=== PATIENT | female | born 1930 | race Caucasian/White ===

== ENCOUNTER 2016-08-27 14:45 | Observation (INO) | payer MEDICARE, MEDICAID ==
[2016-08-27] MEDS ORDERED: ASPIRIN 81 MG TABLET, CHEWABLE PO ONE (14:51)
[2016-08-27 15:28] LABS: ABSOLUTE BASOPHILS # (AUTO) 0.1 10^3/uL (0.0-0.2); ABSOLUTE EOSINOPHILS # (AUTO) 0.3 10^3/uL (0.0-0.6); ABSOLUTE LYMPHOCYTES (AUTO) 2.4 10^3/uL (0.5-4.7); ABSOLUTE MONOCYTES (AUTO) 0.6 10^3/uL (0.1-1.4); ABSOLUTE NEUT (AUTO) 4.5 10^3/uL (1.7-8.2); BASOPHILS % (AUTO) 1.3 % (0-2); EOSINOPHILS % (AUTO) 3.2 % (0-6); HEMATOCRIT 37.8 % (36.0-47.0); HEMOGLOBIN 12.9 g/dL (12.0-15.5); HGB HCT DIFFERENCE 0.9; LYMPHOCYTES % (AUTO) 30.3 % (13-45); MEAN CORPUSCULAR HEMOGLOBIN 34.8 pg (27.0-33.4); MEAN CORPUSCULAR HGB CONC 34.2 g/dL (32.0-36.0); MEAN CORPUSCULAR VOLUME 102 fl (80-97); MONOCYTES % (AUTO) 7.9 % (3-13); RED BLOOD COUNT 3.71 10^6/uL (3.72-5.28); RED CELL DISTRIBUTION WIDTH 15.2 % (11.5-14.0); SEGMENTED NEUTROPHILS % (AUTO) 57.3 % (42-78); WHITE BLOOD COUNT 7.8 10^3/uL (4.0-10.5)
--- NOTE | 2016-08-27 15:37 | ER Document Report ---
ED Cardiac - General Chief Complaint: Chest Pain Stated Complaint: CHEST PAIN Information source: Patient Notes: This is an 85-year-old female with a previous cardiac history who presents via EMS for evaluation of chest pain. She states that at about 1330 today, while she was watching TV, she experienced sudden sharp stabbing pain in her epigastric and lower chest area at the midline. There is no radiation to the back. She did experience some shortness of breath during the episode but no diaphoresis. She had some nausea but no vomiting. Family states that she looked pale during the episode. She took one of her sublingual nitroglycerin at onset of pain and this did not provide any relief, so she took a second nitroglycerin prior to EMS arrival. She states that once EMS arrived that she was feeling much better, and currently she has no chest pain. She states that the last time she took nitroglycerin was about a week ago during a burping episode but that today's pain episode reminded her of her prior [place] about 15 years ago. TRAVEL OUTSIDE OF THE [place] IN LAST 30 DAYS: No - Related Data Allergies/Adverse Reactions: Penicillins Allergy (Verified 03/01/14 22:51) propoxyphene napsylate [From Darvocet-N 100] Allergy (Verified 03/01/14 22:51) Sulfa (Sulfonamide Antibiotics) Allergy (Verified 03/01/14 22:51) Home Medications: Current Home Medications Cetirizine HCl [Zyrtec 10 mg Tablet] 10 mg PO DAILY 08/27/16 [History] Clopidogrel Bisulfate [Plavix 75 mg Tablet] 75 mg PO DAILY 08/27/16 [History] Dabigatran Etexilate Mesylate [Pradaxa 75 mg Capsule] 75 mg PO BID 08/27/16 [ History] Furosemide [Lasix 40 mg Tablet] 40 mg PO DAILY 08/27/16 [History] Isosorbide Mononitrate [Imdur 30 mg Tablet.er] 30 mg PO DAILY 08/27/16 [History] Meclizine HCl [Antivert 25 mg Tablet] 25 mg PO DAILYP PRN 08/27/16 [History] Metoprolol Succinate [Toprol Xl 50 mg Tab.sr] 50 mg PO QHS 08/27/16 [History] Nitroglycerin [Nitrostat 0.4 mg (1/150 Gr) Tabs 25/Bottle] 1 tab SL ASDIR PRN [History] Ondansetron HCl [Zofran 4 mg Tablet] 4 mg PO Q8HP PRN 08/27/16 [History] Oxycodone HCl [Oxy-Ir 5 mg Tablet] 5 mg PO Q12HP PRN 08/27/16 [History] Pravastatin Sodium [Pravachol] 40 mg PO QHS 08/27/16 [History] Tramadol HCl [Ultram 50 mg Tablet] 50 mg PO TIDP PRN 08/27/16 [History] Valsartan [Diovan 80 mg Tablet] 80 mg PO QHS 08/27/16 [History] Past Medical History - General Information source: Patient - Social History Smoking Status: Former Smoker - quit 45 years ago Frequency of alcohol use: None Drug Abuse: None Lives with: Family Family History: Reviewed & Not Pertinent - Past Medical History Cardiac Medical History: Reports: Hx Congestive Heart Failure, Hx Heart Attack, Hx Hypercholesterolemia, Hx Hypertension Pulmonary Medical History: Denies: Hx Asthma Neurological Medical History: Denies: Hx Cerebrovascular Accident, Hx Seizures GI Medical History: Denies: Hx Hepatitis, Hx Hiatal Hernia, Hx Ulcer Musculoskeltal Medical History: Reports Hx Arthritis Psychiatric Medical History: Denies: Hx Depression Infectious Medical History: Denies: Hx Hepatitis Past Surgical History: Reports: Hx Cardiac Catheterization - stents, Hx Cardiac Surgery - open heart, Hx Cholecystectomy, Hx Coronary Stent, Hx Hysterectomy, Hx Open Heart Surgery - 1998. Denies: Hx Mastectomy, Hx Pacemaker - Immunizations Hx Diphtheria, Pertussis, Tetanus Vaccination: Yes Review of Systems - Review of Systems Notes: REVIEW OF SYSTEMS: CONSTITUTIONAL : Denies fever, chills, or sweats. Denies recent illness. EENT: Denies eye, ear, throat, or mouth pain or symptoms. Denies nasal or sinus congestion. CARDIOVASCULAR: as per HPI RESPIRATORY: Denies cough, cold, or chest congestion, difficulty breathing, or wheezing. GASTROINTESTINAL: Denies nausea, vomiting, or diarrhea. Denies constipation. GENITOURINARY: Denies difficulty urinating, painful urination, burning, frequency, or blood in urine. MUSCULOSKELETAL: Denies neck or back pain or joint pain or swelling. SKIN: Denies rash or skin lesions. HEMATOLOGIC : Denies easy bruising or bleeding. LYMPHATIC: No complaints NEUROLOGICAL: Denies altered mental status or loss of consciousness. Denies headache. PSYCHIATRIC: Denies anxiety or stress or depression. ALL OTHER SYSTEMS REVIEWED AND NEGATIVE. Physical Exam - Vital signs Vitals: Pulse Ox 98 08/27/16 14:57 - Notes Notes: PHYSICAL EXAMINATION: GENERAL: Well-appearing elderly female, pleasant and conversant, well-nourished and in no acute distress. HEAD: Atraumatic, normocephalic. EYES: Pupils equal round and reactive to light, extraocular movements intact, sclera anicteric, conjunctiva are normal. ENT: oropharynx clear without exudates. Moist mucous membranes. NECK: Normal range of motion, supple without lymphadenopathy LUNGS: Faint bibasilar crackles bilaterally, good air movement throughout, no wheezes or rhonchi HEART: Regular rate and rhythm without murmurs CHEST: no deformity. No chest wall TTP ABDOMEN: Soft, nontender, normoactive bowel sounds. No guarding, no rebound. No masses appreciated. EXTREMITIES: Normal range of motion, no pitting or edema. Distal pulses intact. NEUROLOGICAL: Cranial nerves grossly intact. Normal speech. Normal sensory and motor exams. PSYCH: Normal mood, normal affect. SKIN: Warm, Dry, normal turgor, no rashes or lesions noted. Course - Re-evaluation Re-evalutation: 08/27/16 17:28 Patient states that she still feels well and has had no chest pain since being in the emergency department today. We reviewed her lab results and chest x-ray results and discussed my concern about her chest pain being reminiscent of her prior [place]. I have discussed with Dr. Shultz and she will be admitted for chest pain. Questions from patient and family answered and they are all in agreement with plan. - Vital Signs Vital signs: Temp Pulse Resp BP Pulse Ox 79 18 134/81 H 98 08/27/16 20:08 08/27/16 19:00 08/27/16 18:01 08/27/16 19:00 - Laboratory Result Diagrams: 08/27/16 15:15 08/27/16 15:15 Laboratory results interpreted by me: 08/27/16 08/27/16 15:15 15:15 RBC 3.71 L MCV 102 H MCH 34.8 H RDW 15.2 H BUN 26 H Est GFR ( Amer) 58 L Est GFR (Non-Af Amer) 48 L Creatine Kinase 24 L - EKG Interpretation by Me Additional EKG results interpreted by me: 08/27/16 17:20 EKG at 1451 demonstrates a paced rhythm with a rate of 77 with no acute abnormalities Discharge - Discharge Clinical Impression: Chest pain in adult, History of [place] (myocardial infarction) Condition: Good Disposition: ADMITTED OBSERVATION Admitting Provider: [facility] Unit Admitted: [facility]
[2016-08-27 15:49] LABS: ALANINE AMINOTRANSFERASE 21 U/L (9-52); ALBUMIN 4.2 g/dL (3.5-5.0); ALKALINE PHOSPHATASE 57 U/L (38-126); ANION GAP 10 (5-19); ASPARTATE AMINO TRANSFERASE 20 U/L (14-36); BILIRUBIN,TOTAL 0.9 mg/dL (0.2-1.3); BLOOD UREA NITROGEN 26 mg/dL (7-20); CARBON DIOXIDE 29 mmol/L (22-30); CHLORIDE 100 mmol/L (98-107); CREATINE KINASE 24 U/L (30-135); CREATININE RESULT 1.09 mg/dL (0.52-1.25); GLUCOSE 86 mg/dL (75-110); POTASSIUM 4.6 mmol/L (3.6-5.0); SODIUM 139.4 mmol/L (137-145); TOTAL PROTEIN 7.1 g/dL (6.3-8.2)
[2016-08-27 16:00] LABS: CREATINE KINASE MB < 0.22 ng/mL (<4.55); TROPONIN I < 0.012 ng/mL
[2016-08-27] MEDS ORDERED: MECLIZINE HCL 25 MG TABLET PO PRN (21:17)
[2016-08-27] MEDS ORDERED: TRAMADOL HCL 50 MG TABLET PO PRN (21:17)
[2016-08-27] MEDS ORDERED: (PENDING PHARMACY ID) (Ondansetron Hcl [Zofran 4 Mg Tablet] 4 MG) PO PRN (21:17)
[2016-08-27] MEDS ORDERED: OXYCODONE HCL IR 5 MG TABLET PO PRN (21:17)
[2016-08-27] MEDS ORDERED: NITROGLYCERIN 0.4 MG/TAB 25 TAB/BOTTLE SL PRN (21:17)
[2016-08-27] MEDS ORDERED: ONDANSETRON HCL 8 MG TABLET PO PRN (21:29)
[2016-08-27] MEDS ORDERED: ATORVASTATIN CALCIUM 10 MG TABLET PO SCH (22:00)
[2016-08-27] MEDS ORDERED: (PENDING PHARMACY ID) (Pravastatin Sodium [Pravachol] 40 MG) PO SCH (22:00)
[2016-08-27] MEDS ORDERED: VALSARTAN 80 MG TABLET PO SCH (22:00)
[2016-08-27] MEDS ORDERED: METOPROLOL SUCCINATE 50 MG TAB.SR.24H PO SCH (22:00)
--- NOTE | 2016-08-27 22:17 | EKG REPORT ---
SEVERITY:- ABNORMAL ECG - AFIB/FLUT AND V-PACED COMPLEXES : Confirmed by: Jose Raul Lorenzo 27-Aug-2016 22:17:20
[2016-08-28 02:54] LABS: CREATINE KINASE MB < 0.22 ng/mL (<4.55); TROPONIN I < 0.012 ng/mL
--- NOTE | 2016-08-28 08:16 | PDOC DISCHARGE SUMMARY ---
General - Admit/Disc Date/PCP Admission Date/Primary Care Provider: 08/27/16 21:14 PATRICIA MAJANO, Discharge Date: 08/28/16 - Discharge Diagnosis (1) Chest pain in adult Is this a current diagnosis for this admission?: YesSummary: Chest pain and NH ruled out most probably noncardiac. (2) Gastroesophageal reflux disease Is this a current diagnosis for this admission?: YesSummary: Possible cause of retrosternal chest pain. The patient states she had a lot of heartburn and burping last week (3) History of [place] (myocardial infarction) Is this a current diagnosis for this admission?: Yes (4) Hypertensive disorder Is this a current diagnosis for this admission?: Yes - Additional Information Resuscitation Status: Full Code Discharge Diet: As Tolerated Discharge Activity: Activity As Tolerated Home Medications: Cetirizine HCl [Zyrtec 10 mg Tablet] 10 mg PO DAILY 08/27/16 Clopidogrel Bisulfate [Plavix 75 mg Tablet] 75 mg PO DAILY 08/27/16 Dabigatran Etexilate Mesylate [Pradaxa 75 mg Capsule] 75 mg PO BID 08/27/16 Furosemide [Lasix 40 mg Tablet] 40 mg PO DAILY 08/27/16 Isosorbide Mononitrate [Imdur 30 mg Tablet.er] 30 mg PO DAILY 08/27/16 Meclizine HCl [Antivert 25 mg Tablet] 25 mg PO DAILYP PRN 08/27/16 Metoprolol Succinate [Toprol Xl 50 mg Tab.sr] 50 mg PO QHS 08/27/16 Nitroglycerin [Nitrostat 0.4 mg (1/150 Gr) Tabs 25/Bottle] 1 tab SL ASDIR PRN Ondansetron HCl [Zofran 4 mg Tablet] 4 mg PO Q8HP PRN 08/27/16 Oxycodone HCl [Oxy-Ir 5 mg Tablet] 5 mg PO Q12HP PRN 08/27/16 Pravastatin Sodium [Pravachol] 40 mg PO QHS 08/27/16 Tramadol HCl [Ultram 50 mg Tablet] 50 mg PO TIDP PRN 08/27/16 Valsartan [Diovan 80 mg Tablet] 80 mg PO QHS 08/27/16 History of Present Illness History of Present Illness: SUNIL VALDES is a 85 year old female Hospital Course Hospital Course: The patient was admitted for observation with chest pain. Her chest pain has resolved by the time she arrived in the emergency room. Because of her prior history of coronary artery disease the patient was admitted for observation. She had 3 sets of negative enzymes. Her EKG showed paced rhythm. She did not have any recurrence of chest pain or retrosternal discomfort. On the day of discharge she appeared comfortable in no acute distress vital signs stable except for no JVD no bruits chest clear to auscultation and percussion heart S1-S2 RRR abdomen soap all sounds positive mildly tender in the epigastrium but no guarding no rebound and patient was discharged home in stable condition and stable vital signs. Physical Exam Vital Signs: Temp Pulse Resp BP Pulse Ox 98.3 F 76 20 118/60 97 08/28/16 05:06 08/28/16 05:06 08/28/16 05:06 08/28/16 05:06 08/28/16 05:06 Intake & Output 08/27/16 08/28/16 08/29/16 06:59 06:59 06:59 Intake Total 245 Output Total 1300 Balance -1055 Weight 89 kg General appearance: PRESENT: no acute distress Head exam: PRESENT: atraumatic Eye exam: PRESENT: conjunctiva pink Neck exam: ABSENT: carotid bruit, JVD Respiratory exam: PRESENT: clear to auscultation caitie Cardiovascular exam: PRESENT: RRR, +S1, +S2 Pulses: PRESENT: normal carotid pulses GI/Abdominal exam: PRESENT: normal bowel sounds, soft Extremities exam: PRESENT: full ROM, tenderness Results Laboratory Results: 08/28/16 02:11 CK-MB (CK-2) < 0.22 Troponin I < 0.012 Impressions: Chest X-Ray 08/27/16 14:51 IMPRESSION: Cardiomegaly. No acute findings. Plan Discharge Plan: Continue present medications. Take omeprazole. Continue to feel cardiac meds. Follow-up in the office in one week and when necessary thank you
[2016-08-28 08:29] VITALS: BP 129/59
[2016-08-28 08:45] LABS: CREATINE KINASE MB < 0.22 ng/mL (<4.55); TROPONIN I < 0.012 ng/mL
[2016-08-28] MEDS ORDERED: ISOSORBIDE MONONITRATE 30 MG TAB.ER.24H PO SCH (10:00)
[2016-08-28] MEDS ORDERED: FUROSEMIDE 40 MG TABLET PO SCH (10:00)
[2016-08-28] MEDS ORDERED: ASPIRIN 81 MG TABLET, ENT COATED PO SCH (10:00)
[2016-08-28] MEDS ORDERED: CETIRIZINE 10 MG TABLET PO SCH (10:00)
[2016-08-28] MEDS ORDERED: CLOPIDOGREL BISULFATE 75 MG TABLET PO SCH (10:00)
[2016-08-28] MEDS ORDERED: DABIGATRAN ETEXILATE 75 MG CAPSULE PO SCH (10:00)
--- NOTE | 2016-08-28 11:04 | EKG REPORT ---
SEVERITY:- ABNORMAL ECG - VENTRICULAR-PACED RHYTHM : Confirmed by: Jose Raul Lorenzo 28-Aug-2016 11:03:52
== END 2016-08-28 10:28 | disposition home or self-care (01) ==
LOC: ER 14:45 → UNDOADMOB 18:16 → EH 18:16 → 3W 20:01 → EH 20:01 → 3W 21:14
PROVIDERS: ADMIT Internal Medicine; ATTEND Internal Medicine
DX: R07.9 Chest pain, unspecified (principal); K21.9 Gastro-esophageal reflux disease without esophagitis; I25.2 Old myocardial infarction; I10 Essential (primary) hypertension; Z87.891 Personal history of nicotine dependence; I50.9 Heart failure, unspecified; E78.00 Pure hypercholesterolemia, unspecified; M19.90 Unspecified osteoarthritis, unspecified site; Z95.5 Presence of coronary angioplasty implant and graft
CPT/HCPCS: 93005 ×2; 99285; 36415 ×2; 82553 ×2; 82550; 85025; 80053; 84484 ×2; 71010; 93010 ×2; G0378 ×2; A9270 ×7; J3490 ×2

== ENCOUNTER → 2016-09-03 | Outpatient (CLI) | payer MEDICARE, MEDICAID ==
[2016-09-03 11:17] LABS: ALANINE AMINOTRANSFERASE 21 U/L (9-52); ALBUMIN 4.3 g/dL (3.5-5.0); ALKALINE PHOSPHATASE 54 U/L (38-126); ASPARTATE AMINO TRANSFERASE 18 U/L (14-36); BILIRUBIN,TOTAL 0.9 mg/dL (0.2-1.3); CHOLESTEROL 108.98 mg/dL (0-200); Direct HDL 46 mg/dL (>40); TOTAL PROTEIN 6.8 g/dL (6.3-8.2); TRIGLYCERIDES 88 mg/dL (<150)
[2016-09-03 11:28] LABS: DIRECT LDL 47 mg/dL (<100)
== END ==
LOC: OD 09:54
PROVIDERS: ATTEND Specialist
DX: E78.4 Other hyperlipidemia (principal); I12.9 Hypertensive chronic kidney disease with stage 1 through stage 4 chronic kidney disease, or unspecified chronic kidney disease; N18.3 Chronic kidney disease, stage 3 (moderate); I34.0 Nonrheumatic mitral (valve) insufficiency; I36.1 Nonrheumatic tricuspid (valve) insufficiency; I42.8 Other cardiomyopathies; R01.1 Cardiac murmur, unspecified; R09.89 Other specified symptoms and signs involving the circulatory and respiratory systems; E11.9 Type 2 diabetes mellitus without complications; I48.91 Unspecified atrial fibrillation; M54.9 Dorsalgia, unspecified; Z79.899 Other long term (current) drug therapy
CPT/HCPCS: 36415; 80061; 80076

== ENCOUNTER 2016-11-07 21:08 | Emergency (ER) | payer MEDICARE, MEDICAID ==
[2016-11-07] MEDS ORDERED: ASPIRIN 81 MG TABLET, CHEWABLE PO ONE (21:22)
[2016-11-07 21:50] LABS: ABSOLUTE BASOPHILS # (AUTO) 0.1 10^3/uL (0.0-0.2); ABSOLUTE EOSINOPHILS # (AUTO) 0.3 10^3/uL (0.0-0.6); ABSOLUTE LYMPHOCYTES (AUTO) 2.6 10^3/uL (0.5-4.7); ABSOLUTE MONOCYTES (AUTO) 0.5 10^3/uL (0.1-1.4); ABSOLUTE NEUT (AUTO) 4.7 10^3/uL (1.7-8.2); BASOPHILS % (AUTO) 1.1 % (0-2); EOSINOPHILS % (AUTO) 3.7 % (0-6); HEMATOCRIT 36.7 % (36.0-47.0); HEMOGLOBIN 12.6 g/dL (12.0-15.5); HGB HCT DIFFERENCE 1.1; LYMPHOCYTES % (AUTO) 31.6 % (13-45); MEAN CORPUSCULAR HEMOGLOBIN 35.3 pg (27.0-33.4); MEAN CORPUSCULAR HGB CONC 34.3 g/dL (32.0-36.0); MEAN CORPUSCULAR VOLUME 103 fl (80-97); MONOCYTES % (AUTO) 5.8 % (3-13); RED BLOOD COUNT 3.56 10^6/uL (3.72-5.28); RED CELL DISTRIBUTION WIDTH 16.2 % (11.5-14.0); SEGMENTED NEUTROPHILS % (AUTO) 57.8 % (42-78); WHITE BLOOD COUNT 8.2 10^3/uL (4.0-10.5)
[2016-11-07 21:51] LABS: PROTHROMBIN TIME 18.3 SEC (11.4-15.4)
[2016-11-07 21:53] LABS: ALANINE AMINOTRANSFERASE 22 U/L (9-52); ALBUMIN 4.3 g/dL (3.5-5.0); ALKALINE PHOSPHATASE 53 U/L (38-126); ANION GAP 13 (5-19); ASPARTATE AMINO TRANSFERASE 18 U/L (14-36); BILIRUBIN,DIRECT 0.2 mg/dL (0.0-0.4); BILIRUBIN,TOTAL 0.8 mg/dL (0.2-1.3); BLOOD UREA NITROGEN 36 mg/dL (7-20); CALCIUM 8.9 mg/dL (8.4-10.2); CARBON DIOXIDE 28 mmol/L (22-30); CHLORIDE 100 mmol/L (98-107); CREATINE KINASE 22 U/L (30-135); CREATININE RESULT 1.23 mg/dL (0.52-1.25); GLUCOSE 95 mg/dL (75-110); POTASSIUM 4.5 mmol/L (3.6-5.0); SODIUM 140.9 mmol/L (137-145)
--- NOTE | 2016-11-07 21:56 | ER Document Report ---
ED Cardiac - General Chief Complaint: Chest Pain Stated Complaint: CHEST PAIN Notes: The patient is an 85-year-old female, past medical history CAD s/p stents and CABG, CHF w/ AICD, hypertension, presents after she had a 10 minute episode of epigastric pain that resolved when EMS arrived. She was given 2 sublingual nitros without any change of her pain. She had this similar episode 3 months ago and had a workup by her railroad conductor Dr. Crawley, including a negative stress test. She was told that it was gas. She denies current chest pain, shortness of breath, back pain, leg swelling, fevers, cough, headache, nausea, vomiting or diaphoresis. TRAVEL OUTSIDE OF THE [place] IN LAST 30 DAYS: No - Related Data Allergies/Adverse Reactions: aspirin Allergy (Verified 11/07/16 22:50) Penicillins Allergy (Verified 03/01/14 22:51) propoxyphene napsylate [From Darvocet-N 100] Allergy (Verified 03/01/14 22:51) Sulfa (Sulfonamide Antibiotics) Allergy (Verified 03/01/14 22:51) Past Medical History - General Information source: Patient - Social History Smoking Status: Unknown if Ever Smoked Family History: Reviewed & Not Pertinent - Past Medical History Cardiac Medical History: Reports: Hx Congestive Heart Failure, Hx Heart Attack, Hx Hypercholesterolemia, Hx Hypertension Pulmonary Medical History: Denies: Hx Asthma Neurological Medical History: Denies: Hx Cerebrovascular Accident, Hx Seizures GI Medical History: Denies: Hx Hepatitis, Hx Hiatal Hernia, Hx Ulcer Musculoskeltal Medical History: Reports Hx Arthritis Psychiatric Medical History: Denies: Hx Depression Infectious Medical History: Denies: Hx Hepatitis Past Surgical History: Reports: Hx Cardiac Catheterization - stents, Hx Cardiac Surgery - open heart, Hx Cholecystectomy, Hx Coronary Stent, Hx Hysterectomy, Hx Open Heart Surgery - 1998. Denies: Hx Mastectomy, Hx Pacemaker - Immunizations Hx Diphtheria, Pertussis, Tetanus Vaccination: Yes Hx Pneumococcal Vaccination: 05/26/16 Review of Systems - Review of Systems Notes: REVIEW OF SYSTEMS: CONSTITUTIONAL: -fevers, -chills EENT: -eye pain, -difficulty swallowing, -nasal congestion CARDIOVASCULAR: +chest pain, -syncope. RESPIRATORY: -cough, -SOB GASTROINTESTINAL: -abdominal pain, - nausea, -vomiting, -diarrhea GENITOURINARY: -dysuria, -hematuria MUSCULOSKELETAL: -back pain, -neck pain SKIN: -rash or skin lesions. HEMATOLOGIC: -easy bruising or bleeding. LYMPHATIC: -swollen, enlarged glands. NEUROLOGICAL: -altered mental status or loss of consciousness, -headache, - neurologic symptoms PSYCHIATRIC: -anxiety, -depression. ALL OTHER SYSTEMS REVIEWED AND NEGATIVE. Physical Exam - Vital signs Vitals: Resp Pulse Ox 16 97 11/07/16 21:20 11/07/16 21:20 - Notes Notes: PHYSICAL EXAMINATION: GENERAL: Well-appearing, well-nourished and in no acute distress. HEAD: Atraumatic, normocephalic. EYES: Pupils equal round and reactive to light, extraocular movements intact, sclera anicteric, conjunctiva are normal. ENT: nares patent, oropharynx clear without exudates. Moist mucous membranes. NECK: Normal range of motion, supple without lymphadenopathy LUNGS: Breath sounds clear to auscultation bilaterally and equal. No wheezes rales or rhonchi. HEART: Regular rate and rhythm without murmurs ABDOMEN: Soft, nontender, normoactive bowel sounds. No guarding, no rebound. No masses appreciated. EXTREMITIES: Normal range of motion, no pitting or edema. No cyanosis. NEUROLOGICAL: Cranial nerves grossly intact. Normal speech, normal gait. Normal sensory, motor, and reflex exams. PSYCH: Normal mood, normal affect. SKIN: Warm, Dry, normal turgor, no rashes or lesions noted. Course - Re-evaluation Re-evalutation: Patient with multiple risk factors for ACS. 2 sets of troponins and EKG do not show any active ischemia. She states that she does not have any chest pain. She is unable to take aspirin due to anaphylaxis. She had this pain 3 months ago and had a negative stress test. Symptoms atypical for aortic dissection or PE at this time. Spoke to patient and family members about observation admission for further evaluation and treatment of this chest pain due to her multiple comorbidities and HEART score 5. Because it is Easter tomorrow and she is not having any pain, she would like to go home and follow-up with her railroad conductor on Wednesday. She is competent to make her own decisions. Spoke to patient about risk of leaving, including heart attack and and they understand. They signed the AMA form. Given strict return precautions and they understand. - Vital Signs Vital signs: Temp Pulse Resp BP Pulse Ox 98.2 F 16 142/84 H 97 11/08/16 00:00 11/08/16 00:00 11/07/16 22:02 11/08/16 00:00 - Laboratory Result Diagrams: 11/07/16 21:28 11/07/16 21:28 Laboratory results interpreted by me: 11/07/16 11/07/16 11/07/16 21:28 21:28 21:28 RBC 3.56 L MCV 103 H MCH 35.3 H RDW 16.2 H PT 18.3 H BUN 36 H Est GFR ( Amer) 50 L Est GFR (Non-Af Amer) 42 L Creatine Kinase 22 L - Diagnostic Test Radiology reviewed: Image reviewed, Reports reviewed Radiology results interpreted by me: CXR: NAD - EKG Interpretation by Me EKG shows normal: Intervals, ST-T Waves Rate: Normal Additional EKG results interpreted by me: Dual AV paced Discharge - Discharge Clinical Impression: Chest pain Qualifiers: Chest pain type: unspecified Qualified Code(s): R07.9 - Chest pain, unspecified Condition: Stable Disposition: AGAINST MEDICAL ADVICE Additional Instructions: You must call Dr. Louis on Wednesday, since you feel well enough to go home today because it's Easter. Return immediately to the emergency room if he noticed worsening chest pain or any other concerns. CHEST PAIN OF UNCLEAR CAUSE: The exact cause of your chest pain isn't clear. Fortunately, there is no evidence of a dangerous medical condition. Further testing may be required to find the source of the pain. Most often, we find that this pain is coming from the chest wall -- the muscles or rib joints in the chest. But chest pain can come from the lung and lung lining, the esophagus, the heart valves or heart lining, and even the stomach or gallbladder. Rest. Eat lightly until the pain is gone. We may prescribe medicine for pain and inflammation. You should call the physician immediately if the pain radiates to the shoulder, jaw or arms; if you start to run a fever or develop a cough; or if you develop shortness of breath, or other new or alarming symptoms. NORMAL EXAM AND WORKUP: At this time, your examination and workup show no significant abnormality. No significant abnormal physical findings were noted. All laboratory, EKG, and imaging (x-ray, CT scans, ultrasound) studies that were ordered show no significant abnormality. Although your examination and all studies that were ordered showed no significant abnormal finding, there are no examinations and no studies that are 100% accurate. There is always the possibility that some abnormality could exist and not be detected with physical examination or within the limits and capabilities of laboratory and other studies. You should return or follow up as you were instructed on your visit today for further evaluation if your symptoms do not resolve. CHEST WALL PAIN: Your chest pain may be coming from the chest wall. This is often caused by straining the muscles or joints in the chest during physical activity, direct trauma, coughing, or vigorous vomiting. Persons with arthritis are especially prone to this type of pain, due to inflammation of the cartilage joints near the breast bone. Occasionally, no cause can be found. Rest from strenuous physical activity. This kind of chest pain is usually made worse by movement of the chest. Depending on the symptoms, we may prescribe medicine for pain, muscle relaxation, and antiinflammatory effects. If the pain is new, and seems to be due to muscle strain, cold packs can help. Otherwise, apply gentle warmth to the painful area for 15 minutes every hour or two. You should call contact the doctor immediately if things change. Further evaluation is needed if you develop a fever or cough, if the nature of the pain changes, or if you become short of breath. ANGINA EPISODE: Your physician has diagnosed the pain you experienced as an episode of angina. Angina occurs when a portion of the heart muscle temporarily lacks oxygen. It does not cause any permanent heart damage, but serves as a warning. Hospitalization is not necessary now. Evaluation of your cardiac condition , and medical therapy for angina will be necessary. It's important you be sure to keep all appointments and take medication exactly as prescribed. Angina is usually treated with a type of "nitrate" medication. This is available as ointment, pills, or sublingual (under the tongue) tablets. Depending on your clinical situation, other medications may be added to help control angina. These may include beta blockers or calcium blockers. If episodes of angina are occurring with increased frequency, or if chest pain lasts longer than 15 minutes or does not respond to nitroglycerin, you must seek emergency medical care immediately. ACID REFLUX DISEASE (GERD): Gastro-Esophageal Reflux Disease (GERD) is caused by stomach acid refluxing back up into the esophagus. The valve at the end of the esophagus may be weak. This is common in persons with a hiatal hernia. GERD symptoms can include indigestion, chest pain, heartburn, or food "sticking." Certain foods, alcohol, and aspirin can make GERD worse. Treatment depends on the severity. Usually, antacids or acid-suppressing medicines are used. When the esophagus is acutely inflamed, the physician will often prescribe membrane-protective drugs such as Carafate. Some patients benefit from medication such as Reglan that tightens the valve at the top of the stomach. Avoid those foods that bring on your symptoms. For many people, these foods are coffee, chocolate, onions, garlic, and carbonated drinks. Don't use alcohol, aspirin, caffeine, or tobacco. Don't eat late at night -- within 4 hours of bedtime. Don't over-eat. If necessary, elevate the head of your bed about 4 inches so that stomach acid will not roll up into your esophagus. Call the doctor if you develop severe chest pain, inability to swallow fluids, fever, or worsening symptoms. FOLLOW-UP CARE: If you have been referred to a physician for follow-up care, call the physician s office for an appointment as you were instructed or within the next two days. If you experience worsening or a significant change in your symptoms, notify the physician immediately or return to the Emergency Department at any time for re-evaluation. Referrals: DIOGO BLANCO MD [ACTIVE STAFF] - Follow up as needed
[2016-11-07 22:20] LABS: CREATINE KINASE MB < 0.22 ng/mL (<4.55); TROPONIN I < 0.012 ng/mL
[2016-11-07 23:00] VITALS: BP 142/84
--- NOTE | 2016-11-08 09:11 | EKG REPORT ---
SEVERITY:- ABNORMAL ECG - VENTRICULAR-PACED COMPLEXES , A FIB : Confirmed by: Quang Faith MD 08-Nov-2016 09:11:15
== END 2016-11-08 01:08 | disposition left against medical advice (07) ==
LOC: ER 21:08
DX: R07.9 Chest pain, unspecified (principal); I25.10 Atherosclerotic heart disease of native coronary artery without angina pectoris; I50.9 Heart failure, unspecified
CPT/HCPCS: 36415; 71010; 80053; 82550; 82553; 84484; 85025; 85610; 93005; 93010; 99285

== ENCOUNTER → 2016-11-24 | Outpatient (CLI) | payer MEDICARE, MEDICAID ==
[2016-11-24 12:57] LABS: APPEARANCE,URINE CLEAR; BILIRUBIN,URINE NEGATIVE (NEGATIVE); GLUCOSE, URINE NEGATIVE (NEGATIVE); KETONES,URINE NEGATIVE (NEGATIVE); LEUKOCYTE ESTERASE,URINE SMALL (NEGATIVE); NITRITE,URINE NEGATIVE (NEGATIVE); PROTEIN,URINE NEGATIVE (NEGATIVE); URINE SPECIFIC GRAVITY 1.005; UROBILINOGEN,URINE NEGATIVE mg/dL (<2.0)
[2016-11-24 13:04] LABS: ABSOLUTE BASOPHILS # (AUTO) 0.1 10^3/uL (0.0-0.2); ABSOLUTE EOSINOPHILS # (AUTO) 0.3 10^3/uL (0.0-0.6); ABSOLUTE LYMPHOCYTES (AUTO) 1.9 10^3/uL (0.5-4.7); ABSOLUTE MONOCYTES (AUTO) 0.3 10^3/uL (0.1-1.4); BASOPHILS % (AUTO) 1.4 % (0-2); EOSINOPHILS % (AUTO) 4.8 % (0-6); HEMATOCRIT 36.9 % (36.0-47.0); HEMOGLOBIN 12.3 g/dL (12.0-15.5); LYMPHOCYTES % (AUTO) 28.2 % (13-45); MEAN CORPUSCULAR HEMOGLOBIN 34.5 pg (27.0-33.4); MEAN CORPUSCULAR HGB CONC 33.4 g/dL (32.0-36.0); MEAN CORPUSCULAR VOLUME 103 fl (80-97); MONOCYTES % (AUTO) 5.2 % (3-13); RED BLOOD COUNT 3.58 10^6/uL (3.72-5.28); RED CELL DISTRIBUTION WIDTH 15.7 % (11.5-14.0); SEGMENTED NEUTROPHILS % (AUTO) 60.4 % (42-78); WHITE BLOOD COUNT 6.6 10^3/uL (4.0-10.5)
[2016-11-24 13:32] LABS: ANION GAP 13 (5-19); BLOOD UREA NITROGEN 26 mg/dL (7-20); CALCIUM 9.3 mg/dL (8.4-10.2); CARBON DIOXIDE 28 mmol/L (22-30); CHLORIDE 101 mmol/L (98-107); CREATININE RESULT 1.16 mg/dL (0.52-1.25); GLUCOSE 93 mg/dL (75-110); PHOSPHORUS 4.2 mg/dL (2.5-4.5); POTASSIUM 4.6 mmol/L (3.6-5.0); SODIUM 141.9 mmol/L (137-145)
[2016-11-25 07:11] LABS: VITAMIN D 25-HYDROXY 55.2 ng/mL (30.0-100.0)
[2016-11-25 12:38] LABS: CREATININE URINE 14.9 mg/dL (Not Estab.); MICROALBUMIN URINE 4.3 ug/mL (Not Estab.)
== END ==
LOC: OD 11:21
PROVIDERS: ATTEND Internal Medicine Nephrology
DX: N18.3 Chronic kidney disease, stage 3 (moderate) (principal); R80.9 Proteinuria, unspecified
CPT/HCPCS: 36415; 80048; 81001; 82040; 82043; 82306; 82570; 83970; 84100; 85025

== ENCOUNTER → 2017-04-06 | Outpatient (CLI) | payer MEDICARE, MEDICAID ==
[2017-04-06 10:32] LABS: HEMATOCRIT 32.1 % (36.0-47.0); HEMOGLOBIN 10.8 g/dL (12.0-15.5); HGB HCT DIFFERENCE 0.3; MEAN CORPUSCULAR HEMOGLOBIN 37.8 pg (27.0-33.4); MEAN CORPUSCULAR HGB CONC 33.5 g/dL (32.0-36.0); RED BLOOD COUNT 2.85 10^6/uL (3.72-5.28); RED CELL DISTRIBUTION WIDTH 17.9 % (11.5-14.0); WHITE BLOOD COUNT 4.5 10^3/uL (4.0-10.5)
[2017-04-06 11:00] LABS: ALANINE AMINOTRANSFERASE 17 U/L (9-52); ALKALINE PHOSPHATASE 49 U/L (38-126); ANION GAP 12 (5-19); ASPARTATE AMINO TRANSFERASE 15 U/L (14-36); BILIRUBIN,DIRECT 0.5 mg/dL (0.0-0.4); BILIRUBIN,TOTAL 0.9 mg/dL (0.2-1.3); BLOOD UREA NITROGEN 26 mg/dL (7-20); CALCIUM 9.2 mg/dL (8.4-10.2); CARBON DIOXIDE 28 mmol/L (22-30); CHLORIDE 101 mmol/L (98-107); CHOLESTEROL 96.54 mg/dL (0-200); CREATININE RESULT 1.17 mg/dL (0.52-1.25); Direct HDL 43 mg/dL (>40); GLUCOSE 107 mg/dL (75-110); POTASSIUM 4.2 mmol/L (3.6-5.0); SODIUM 141.2 mmol/L (137-145); TOTAL PROTEIN 6.6 g/dL (6.3-8.2); TRIGLYCERIDES 69 mg/dL (<150)
[2017-04-06 11:04] LABS: BAND NEUTROPHILS % (MANUAL) 4 % (3-5); BASOPHILS % (MANUAL) 0 % (0-2); EOSINOPHILS % (MANUAL) 5 % (0-6); LYMPHOCYTES % (MANUAL) 33 % (13-45); TOTAL CELLS COUNTED 100
[2017-04-06 11:08] LABS: ANISOCYTOSIS 2+; OVALOCYTES 1+; POIKILOCYTOSIS SLIGHT
[2017-04-06 11:09] LABS: TARGET CELLS SLIGHT; TEAR DROP CELLS SLIGHT
[2017-04-06 11:10] LABS: POLYCHROMASIA SLIGHT
[2017-04-06 11:11] LABS: MEAN CORPUSCULAR VOLUME 113 fl (80-97)
[2017-04-06 11:12] LABS: DIRECT LDL 41 mg/dL (<100)
== END ==
LOC: OD 09:30
PROVIDERS: ATTEND Internal Medicine
DX: I25.10 Atherosclerotic heart disease of native coronary artery without angina pectoris (principal); E78.5 Hyperlipidemia, unspecified; N18.3 Chronic kidney disease, stage 3 (moderate); D64.9 Anemia, unspecified; M19.90 Unspecified osteoarthritis, unspecified site
CPT/HCPCS: 36415; 80053; 80061; 82728; 83540; 83550; 84443; 85025

== ENCOUNTER 2017-05-15 17:52 | Emergency (ER) | payer MEDICARE, MEDICAID ==
[2017-05-15] MEDS ORDERED: ACETAMINOPHEN 325 MG TABLET PO ONE (18:52)
[2017-05-15] MEDS ORDERED: RINGERS SOLUTION,LACTATED 500 ML IV ONE (18:52)
--- NOTE | 2017-05-15 18:54 | ER Document Report ---
ED General - General Chief Complaint: Fall Injury Stated Complaint: FALL/HIP PAIN Time Seen by Provider: 05/15/17 18:13 Notes: Patient is an 86-year-old female with a past history of known coronary artery disease who presents after having a mechanical fall 2 days ago landing on her left buttock and trying to brace herself with her left arm. Family notes that since that time she has had increasing difficulty ablating although she continues to be able to do so except much more slowly than normal. She is also had increasing bruising and swelling of her left wrist. She does note a severe , constant throbbing pain to the left wrist that is worsened by attempts at movement. Nothing improves the pain. She has no history of similar injury in the past. Patient does note a mild pain to the left buttock but states it is overall quite mild. Patient denies hitting her head or neck during the fall. Family does note at the bedside that since she has had the fall she has been willing to eat less and appears more fatigued. She is also had nonbilious vomiting but denies any abdominal pain or chest pain. She has not seen her primary care doctor regarding today's concerns. TRAVEL OUTSIDE OF THE [place] IN LAST 30 DAYS: No - Related Data Allergies/Adverse Reactions: aspirin Allergy (Verified 11/07/16 22:50) Penicillins Allergy (Verified 03/01/14 22:51) propoxyphene napsylate [From Darvocet-N 100] Allergy (Verified 03/01/14 22:51) Sulfa (Sulfonamide Antibiotics) Allergy (Verified 03/01/14 22:51) Past Medical History - General Information source: Patient - Social History Smoking Status: Never Smoker Chew tobacco use (# tins/day): No Frequency of alcohol use: None Drug Abuse: None Lives with: Family Family History: Reviewed & Not Pertinent - Past Medical History Cardiac Medical History: Reports: Hx Congestive Heart Failure, Hx Heart Attack, Hx Hypercholesterolemia, Hx Hypertension Pulmonary Medical History: Denies: Hx Asthma Neurological Medical History: Denies: Hx Cerebrovascular Accident, Hx Seizures GI Medical History: Denies: Hx Hepatitis, Hx Hiatal Hernia, Hx Ulcer Musculoskeltal Medical History: Reports Hx Arthritis Psychiatric Medical History: Denies: Hx Depression Infectious Medical History: Denies: Hx Hepatitis Past Surgical History: Reports: Hx Cardiac Catheterization - stents, Hx Cardiac Surgery - open heart, Hx Cholecystectomy, Hx Coronary Stent, Hx Hysterectomy, Hx Open Heart Surgery - 1998. Denies: Hx Mastectomy - lumpectomy, Hx Pacemaker - Immunizations Hx Diphtheria, Pertussis, Tetanus Vaccination: Yes Hx Pneumococcal Vaccination: 05/26/16 Review of Systems - Review of Systems Notes: Constitutional: Negative for fever. HENT: Negative for sore throat. Eyes: Negative for visual changes. Cardiovascular: Negative for chest pain. Respiratory: Negative for shortness of breath. Gastrointestinal: Negative for abdominal pain, vomiting or diarrhea. Genitourinary: Negative for dysuria. Musculoskeletal: Positive for left wrist pain and left hip pain Skin: Negative for rash. Neurological: Negative for headaches, weakness or numbness. 10 point ROS negative except as marked above and in HPI. Physical Exam - Vital signs Vitals: Temp Pulse Resp BP Pulse Ox 99.6 F 64 19 122/57 L 78 L 05/15/17 18:08 05/15/17 18:08 05/15/17 18:08 05/15/17 18:08 05/15/17 18:08 Notes: PHYSICAL EXAMINATION: GENERAL: Well-appearing, well-nourished and in no acute distress. HEAD: Atraumatic, normocephalic. EYES: Pupils equal round and reactive to light, extraocular movements intact, sclera anicteric, conjunctiva are normal. ENT: nares patent, oropharynx clear without exudates. Moderately dry mucous membranes. NECK: Normal range of motion, supple without lymphadenopathy LUNGS: Breath sounds clear to auscultation bilaterally and equal. No wheezes rales or rhonchi. HEART: Regular rate and rhythm without murmurs ABDOMEN: Soft, nontender, normoactive bowel sounds. No guarding, no rebound. No masses appreciated. Rectal: Brown stool. No masses. No blood or melena EXTREMITIES: There is apparent deformity of the left wrist with associated ecchymosis over the forearm and dorsum of the hand. No pain with axial loading of the hips bilaterally. No pain with internal and external rotation of the hips. NEUROLOGICAL: No focal neurological deficits. Moves all extremities spontaneously and on command. PSYCH: Normal mood, normal affect. SKIN: Warm, Dry, normal turgor, no rashes or lesions noted. Course - Re-evaluation Re-evalutation: 05/15/17 18:53 Presentation and an overall well-appearing patient in no acute distress who complains of generalized weakness. At time of evaluation, patient's vitals are within normal limits. Patient states symptoms did start after a fall that was mechanical in nature 2 days ago when she landed onto her left buttock and tried to stop herself with her left arm. She does have ecchymosis over the left forearm and hand but no evidence of bruising to the buttock, left hip, and no pain with axial loading of either hip. She has been able to ambulate although with much less speed and proficiency over the last 2 days since the fall. Physical examination without focal findings. No neurologic deficits. They deny any chest pain, shortness of breath, nausea, vomiting, or diarrhea. No dysuria or fever. Basic laboratories including and urinalysis are unremarkable. Troponin is also negative. Low clinical suspicion for ACS, occult pneumonia, acute intra-abdominal pathology, stroke, or transient ischemic attack based on clinical history, examination, and laboratories. They have tolerated oral intake without difficulty. I have discussed the importance of close outpatient follow-up as well as the need to return to emergency room immediately should they have any new or worsening symptoms. The patient and surrogate's are in agreement with this plan and verbalized indications for return to emergency department. 05/15/17 21:54 Patient's laboratories do show worsening anemia hemoglobin 8.7 today which remains above transfusion threshold. MCV is 113 implying that this is either folate or B12 deficient anemia. Stool guaiac done at bedside does not show any melena or evidence of bright red blood. Patient continues to have nausea and vomiting here in the emergency department. She is already status post cholecystectomy. However given that she continues to have nausea and has had one episode of clear vomitus will proceed with CT of the abdomen and pelvis to evaluate for a bowel obstruction. Her wrist x-ray on the left does show a distal radius fracture and triquetrum fracture. She has been placed in a sugar tong splint. Will await CT scan results. 05/15/17 23:[address] scan is unremarkable. She has tolerated oral intake and ambulated without difficulty. Family notes that she is now much closer to her normal after receiving IV fluids. She is now and bleeding like her baseline. Will discharge with recommendations for follow-up with her primary care doctor regarding her anemia as well as orthopedic surgery regarding her left radius fracture. At this time will discharge with return precautions and follow-up recommendations. Verbal discharge instructions given a the bedside and opportunity for questions given. Medication warnings reviewed. Patient is in agreement with this plan and has verbalized understanding of return precautions and the need for primary care follow-up in the next 24-72 hours. - Vital Signs Vital signs: Temp Pulse Resp BP Pulse Ox 99.6 F 64 19 122/57 L 78 L 05/15/17 18:08 05/15/17 18:08 05/15/17 18:08 05/15/17 18:08 05/15/17 18:08 - Laboratory Result Diagrams: 05/15/17 19:15 05/15/17 19:15 Laboratory results interpreted by me: 05/15/17 05/15/17 05/15/17 19:15 19:15 20:25 RBC 2.21 L Hgb 8.7 L Hct 25.1 L MCV 113 H MCH 39.4 H RDW 17.8 H BUN 22 H Est GFR ( Amer) 57 L Est GFR (Non-Af Amer) 47 L Glucose 116 H Total Bilirubin 1.7 H Direct Bilirubin 0.7 H Creatine Kinase < 20 L Urine Protein 30 H Urine Ketones TRACE H Urine Blood SMALL H Urine Urobilinogen 4.0 H Ur Leukocyte Esterase TRACE H - Diagnostic Test Radiology reviewed: Image reviewed, Reports reviewed Radiology results interpreted by me: 05/15/17 22:22 Left wrist: Distal radius fracture Chest x-ray: No acute infiltrate or pneumothorax - EKG Interpretation by Me Additional EKG results interpreted by me: 05/15/17 22:23 Ventricularly paced rhythm. Rate 75. Procedures - Immobilization Left Wrist Pre-Proc Neuro Vasc Exam: Normal Immobilizer type: Sugar tong Performed by: Provider assisted Post-Proc Neuro Vasc Exam: Normal Alignment checked and good: Yes Discharge - Discharge Clinical Impression: Macrocytic anemia, Dehydration, Anorexia Fracture of left distal radius Qualifiers: Encounter type: initial encounter Fracture type: closed Fracture morphology: unspecified fracture morphology Qualified Code(s): S52.502A - Unspecified fracture of the lower end of left radius, initial encounter for closed fracture Vomiting Qualifiers: Vomiting type: unspecified Vomiting Intractability: non-intractable Nausea presence: with nausea Qualified Code(s): R11.2 - Nausea with vomiting, unspecified Condition: Stable Disposition: HOME, SELF-CARE Additional Instructions: 1.) Left wrist fracture: Your distal left radius is broken. You need to follow -up with orthopedic surgery regarding this fracture. Please contact the office of Dr. Rey on Wednesday for an appointment. Keep the splint on until you are seen in the office. Return for worsening pain to the area, discoloration of the hand or any other symptoms that are worrisome to you. 2.) Dehydration: Your weakness and difficulty walking improved after receiving IV fluids. 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 This is likely due to a vitamin B12 or folate deficiency from not eating enough. You need to follow-up with your primary care doctor regarding this finding as it is worse since March. You may require B12 supplementation through B12 shots. Referrals: DEWAYNE REY MD [ACTIVE STAFF] - Follow up as needed PATRICIA MAJANO MD [Primary Care Provider] - Follow up as needed
[2017-05-15 19:51] LABS: ABSOLUTE LYMPHOCYTES (AUTO) 1.3 10^3/uL (0.5-4.7); ABSOLUTE MONOCYTES (AUTO) 0.3 10^3/uL (0.1-1.4); ABSOLUTE NEUT (AUTO) 3.2 10^3/uL (1.7-8.2); BASOPHILS % (AUTO) 0.8 % (0-2); EOSINOPHILS % (AUTO) 0.5 % (0-6); HEMATOCRIT 25.1 % (36.0-47.0); HEMOGLOBIN 8.7 g/dL (12.0-15.5); LYMPHOCYTES % (AUTO) 27.4 % (13-45); MEAN CORPUSCULAR HEMOGLOBIN 39.4 pg (27.0-33.4); MEAN CORPUSCULAR HGB CONC 34.7 g/dL (32.0-36.0); MEAN CORPUSCULAR VOLUME 113 fl (80-97); MONOCYTES % (AUTO) 5.4 % (3-13); RED BLOOD COUNT 2.21 10^6/uL (3.72-5.28); RED CELL DISTRIBUTION WIDTH 17.8 % (11.5-14.0); SEGMENTED NEUTROPHILS % (AUTO) 65.9 % (42-78); WHITE BLOOD COUNT 4.8 10^3/uL (4.0-10.5)
[2017-05-15 20:03] LABS: ALANINE AMINOTRANSFERASE 25 U/L (9-52); ALKALINE PHOSPHATASE 55 U/L (38-126); ANION GAP 12 (5-19); ASPARTATE AMINO TRANSFERASE 16 U/L (14-36); BILIRUBIN,DIRECT 0.7 mg/dL (0.0-0.4); BILIRUBIN,TOTAL 1.7 mg/dL (0.2-1.3); BLOOD UREA NITROGEN 22 mg/dL (7-20); CALCIUM 8.9 mg/dL (8.4-10.2); CARBON DIOXIDE 28 mmol/L (22-30); CHLORIDE 98 mmol/L (98-107); CREATINE KINASE < 20 U/L (30-135); GLUCOSE 116 mg/dL (75-110); POTASSIUM 4.4 mmol/L (3.6-5.0); SODIUM 137.8 mmol/L (137-145); TOTAL PROTEIN 6.8 g/dL (6.3-8.2)
[2017-05-15 20:15] LABS: CREATINE KINASE MB < 0.22 ng/mL (<4.55); TROPONIN I < 0.012 ng/mL
[2017-05-15 20:40] LABS: ANISOCYTOSIS 1+; POIKILOCYTOSIS 1+; POLYCHROMASIA SLIGHT
[2017-05-15 20:41] LABS: STOMATOCYTES 1+
[2017-05-15 20:49] LABS: AMORPHOUS SEDIMENT,URINE TRACE /HPF; APPEARANCE,URINE SLIGHTLY-CLOUDY; BILIRUBIN,URINE NEGATIVE (NEGATIVE); GLUCOSE, URINE NEGATIVE (NEGATIVE); KETONES,URINE TRACE mg/dL (NEGATIVE); LEUKOCYTE ESTERASE,URINE TRACE (NEGATIVE); NITRITE,URINE NEGATIVE (NEGATIVE); PROTEIN,URINE 30 mg/dL (NEGATIVE); URINE SPECIFIC GRAVITY 1.014
--- NOTE | 2017-05-15 21:19 | RADIOLOGY REPORT (SQ) ---
EXAM DESCRIPTION: FOREARM LEFT COMPLETED DATE/TIME: 05/15/2017 9:08 pm REASON FOR STUDY: fall COMPARISON: None. NUMBER OF VIEWS: Two views. TECHNIQUE: Two radiographic images acquired of the left forearm, including elbow and wrist in at [address] one projection. LIMITATIONS: None. FINDINGS: MINERALIZATION: Osteopenia BONES: A comminuted fracture is seen of the distal radius without definite intra-articular extension. SOFT TISSUES: Soft tissue swelling surrounds the wrist. OTHER: No other significant finding. IMPRESSION: Comminuted fracture of the distal radius. TECHNICAL DOCUMENTATION: JOB ID: [id number] [employer]- All Rights Reserved
--- NOTE | 2017-05-15 21:20 | RADIOLOGY REPORT (SQ) ---
EXAM DESCRIPTION: HIP LEFT AP/LATERAL COMPLETED DATE/TIME: 05/15/2017 9:08 pm REASON FOR STUDY: fall COMPARISON: None. NUMBER OF VIEWS: Two views. TECHNIQUE: AP pelvis and additional frog-leg view of the left hip. LIMITATIONS: None. FINDINGS: MINERALIZATION: Osteopenia. LEFT HIP: No fracture or dislocation. No worrisome bone lesions. RIGHT HIP: No fracture or dislocation. No worrisome bone lesions. PUBIS AND ISCHIUM: No fracture. PELVIS: No fracture. SACRUM: No fracture or dislocation. No worrisome bone lesions. LOWER LUMBAR SPINE: No fracture or dislocation. No worrisome bone lesions. No significant disc disea se. SOFT TISSUES: Multiple surgical clips are seen within the pelvic and right inguinal soft tissues. OTHER: Atherosclerotic vascular calcifications are seen of the femoral arteries. IMPRESSION: No radiographic evidence of acute osseous injury. TECHNICAL DOCUMENTATION: JOB ID: [id number] [employer]- All Rights Reserved
--- NOTE | 2017-05-15 21:22 | RADIOLOGY REPORT (SQ) ---
EXAM DESCRIPTION: L SPINE WHOLE COMPLETED DATE/TIME: 05/15/2017 9:08 pm REASON FOR STUDY: fall COMPARISON: None. NUMBER OF VIEWS: Five views including obliques. TECHNIQUE: AP, lateral, oblique, and sacral radiographic images acquired of the lumbar spine. LIMITATIONS: None. FINDINGS: MINERALIZATION: Osteopenia SEGMENTATION: Normal. No transitional anatomy. ALIGNMENT: There appears to be mild rotatory scoliosis. VERTEBRAE: Maintained height. No fracture or worrisome bone lesion. DISCS: Mild loss of intervertebral disc height is seen at the L4/5 level as well as the lower thoraci c levels. POSTERIOR ELEMENTS: Pedicles and facets are intact. No pars defect or posterior arch defects. Multi level facet arthropathy is noted. HARDWARE: Surgical clips project within the soft tissues of the abdomen. PARASPINAL SOFT TISSUES: Atherosclerotic vascular calcification are seen within the aorta. PELVIS: Intact as visualized. No fractures or worrisome bone lesions. SI joints intact. OTHER: No other significant finding. IMPRESSION: Osteopenia and spondylotic change without evidence of acute osseous injury. TECHNICAL DOCUMENTATION: JOB ID: [id number] [employer]- All Rights Reserved
--- NOTE | 2017-05-15 21:26 | RADIOLOGY REPORT (SQ) ---
EXAM DESCRIPTION: WRIST LEFT 3 VIEWS COMPLETED DATE/TIME: 05/15/2017 9:08 pm REASON FOR STUDY: fall COMPARISON: None. NUMBER OF VIEWS: Three views. TECHNIQUE: AP, lateral, and oblique radiographic images acquired of the left wrist. LIMITATIONS: None. FINDINGS: MINERALIZATION: Osteopenia. BONES: A comminuted fractures seen of the distal radius. Additionally, the triquetrum appears coarse elia with indistinct cortex, possibly on the basis of an additional fracture. This is seen on a backg round of [id number] degenerative changes. SOFT TISSUES: Soft tissue swelling is seen circumferentially. OTHER: No other significant finding. IMPRESSION: Comminuted fracture of the distal radius with probable nondisplaced fracture of the triq uetrum. TECHNICAL DOCUMENTATION: JOB ID: [id number] [employer]- All Rights Reserved
--- NOTE | 2017-05-15 21:28 | RADIOLOGY REPORT (SQ) ---
EXAM DESCRIPTION: CHEST SINGLE VIEW COMPLETED DATE/TIME: 05/15/2017 9:08 pm REASON FOR STUDY: sob COMPARISON: 07/15/2014 EXAM PARAMETERS: NUMBER OF VIEWS: One view. TECHNIQUE: Single frontal radiographic view of the chest acquired. RADIATION DOSE: NA LIMITATIONS: Apical lordotic view results in nonstandard cardiomediastinal silhouette. FINDINGS: LUNGS AND PLEURA: No opacities, masses or pneumothorax. No pleural effusion. MEDIASTINUM AND HILAR STRUCTURES: No masses. Contour normal. HEART AND VASCULAR STRUCTURES: Cardiomegaly. Vasculature appears grossly normal. BONES: No acute findings. HARDWARE: A 4 lead cardiac pacer appears grossly stable in position and appearance. The leads remain intact. OTHER: No other significant finding. IMPRESSION: Apical lordotic view results and nonstandard cardiomediastinal silhouette. However, the degree of cardiomegaly appears to be stable and no acute pulmonary abnormalities are demonstrated. TECHNICAL DOCUMENTATION: JOB ID: [id number]
--- NOTE | 2017-05-15 23:01 | RADIOLOGY REPORT (SQ) ---
EXAM DESCRIPTION: CT ABD/PELVIS WITH IV ONLY COMPLETED DATE/TIME: 05/15/2017 10:41 pm REASON FOR STUDY: eval persistent vomiting, elevated bili, sbo COMPARISON: Radiographs performed the same date. And CT abdomen and pelvis 07/15/2014 TECHNIQUE: CT scan of the abdomen and pelvis performed using helical scanning technique with dynamic intravenous contrast injection. No oral contrast. Images reviewed with lung, soft tissue, and bone windows. Reconstructed coronal and sagittal MPR images reviewed. Delayed images for evaluation of the urinary system also acquired. All images stored on PACS. All CT scanners at this facility use dose modulation, iterative reconstruction, and/or weight based d osing when appropriate to reduce radiation dose to as low as reasonably achievable (ALARA). [facility]: Dose Right [facility]: CareDose [facility]: Dose Right [facility]: Teradose 4D [facility]: [employer] CONTRAST TYPE AND DOSE: contrast/concentration: Isovue 370.00 mg/ml; Total Contrast Delivered: 98.0 ml; Total Saline Delivered: 72.0 ml RENAL FUNCTION: BUN 22; creatinine 1.10 RADIATION DOSE: Up-to-date CT equipment and radiation dose reduction techniques were employed. CTDIv ol: 18.4 - 20.5 mGy. DLP: 1949 mGy-cm.. LIMITATIONS: None. FINDINGS: LOWER CHEST: Mild fibrotic changes. No acute findings. LIVER: Diffusely decreased attenuation consistent with hepatic steatosis noting geographic sparing of Couinaud segment 4. No suspicious masses. No intrahepatic biliary dilatation. SPLEEN: Normal size. No focal lesions. PANCREAS: No masses. No significant calcifications. No adjacent inflammation or peripancreatic fluid collections. Pancreatic duct not dilated. GALLBLADDER: Surgically absent. ADRENAL GLANDS: Apparent left adrenalectomy. The right adrenal gland appears normal. RIGHT KIDNEY AND URETER: No solid masses. No significant calcifications. No hydronephrosis or hyd roureter. LEFT KIDNEY AND URETER: No solid masses. No significant calcifications. No hydronephrosis or hydr oureter. AORTA AND VESSELS: Infrarenal saccular aneurysm. No dissection. Renal arteries, SMA, celiac without s tenosis. RETROPERITONEUM: No retroperitoneal adenopathy, hemorrhage or masses. BOWEL AND PERITONEAL CAVITY: Fecalization of the small bowel consistent with slow transit. No eviden ce of bowel obstruction. No masses or inflammatory changes. No free fluid or peritoneal masses. APPENDIX: Normal. PELVIS: No mass. No free fluid. Normal bladder. ABDOMINAL WALL: Fat containing inguinal hernias bilaterally. BONES: No significant or acute findings. OTHER: No other significant finding. IMPRESSION: No evidence of small bowel obstruction. Fecalization of the small bowel contents does s uggest delayed transit. No acute infectious/ inflammatory process. Chronic and incidental findings as detailed above. TECHNICAL DOCUMENTATION: JOB ID: [id number] Quality ID # [id number]: Final reports with documentation of one or more dose reduction techniques (e.g., Au tomated exposure control, adjustment of the mA and/or kV according to patient size, use of iterative reconstruction technique) 2010 [employer]- All Rights Reserved
[2017-05-16 00:07] VITALS: BP 122/59
--- NOTE | 2017-05-16 09:21 | EKG REPORT ---
SEVERITY:- ABNORMAL ECG - AFIB/FLUT AND V-PACED COMPLEXES : Confirmed by: Janelle Hill MD 16-May-2017 09:20:19
== END 2017-05-16 00:23 | disposition home or self-care (01) ==
LOC: ER 17:52
PROC: 2W3DX1Z Immobilization of Left Lower Arm using Splint (ICD-10-PCS; principal; 2017-05-15)
DX: S52.502A Unspecified fracture of the lower end of left radius, initial encounter for closed fracture (principal); D53.9 Nutritional anemia, unspecified; R63.0 Anorexia; E86.0 Dehydration; R11.2 Nausea with vomiting, unspecified; M25.552 Pain in left hip; I25.10 Atherosclerotic heart disease of native coronary artery without angina pectoris; W19.XXXA Unspecified fall, initial encounter
CPT/HCPCS: 93005; 99284; 36415; 82553; 82550; 85025; 82272; 80053; 81001; 84484; 71010; 73090; 73502; 72110; 73110; 74177; 93010; 29125; A9270; J7120; L3650

== ENCOUNTER 2017-06-12 09:32 | Inpatient (IN) | payer MEDICARE, MEDICAID ==
[2017-06-12 10:16] LABS: VENOUS BLOOD BASE EXCESS 4.1 mmol/L; VENOUS BLOOD HCO3 29.1 mmol/L (20-32); VENOUS BLOOD PCO2 45.5 mmHg (35-63); VENOUS BLOOD PH 7.42 (7.30-7.42)
[2017-06-12 10:24] LABS: ALANINE AMINOTRANSFERASE 37 U/L (9-52); ALBUMIN 3.2 g/dL (3.5-5.0); ALKALINE PHOSPHATASE 51 U/L (38-126); ANION GAP 12 (5-19); ASPARTATE AMINO TRANSFERASE 38 U/L (14-36); BILIRUBIN,DIRECT 0.5 mg/dL (0.0-0.4); BILIRUBIN,TOTAL 0.9 mg/dL (0.2-1.3); BLOOD UREA NITROGEN 28 mg/dL (7-20); CALCIUM 8.3 mg/dL (8.4-10.2); CARBON DIOXIDE 28 mmol/L (22-30); CHLORIDE 101 mmol/L (98-107); GLUCOSE 91 mg/dL (75-110); POTASSIUM 4.2 mmol/L (3.6-5.0)
[2017-06-12 10:25] LABS: CREATINE KINASE < 20 U/L (30-135)
[2017-06-12 10:36] LABS: CREATINE KINASE MB 0.26 ng/mL (<4.55); NT PRO BNP 4090 pg/mL (<450)
[2017-06-12 10:37] LABS: TROPONIN I < 0.012 ng/mL
[2017-06-12 10:57] LABS: HEMATOCRIT 19.9 % (36.0-47.0); MEAN CORPUSCULAR HEMOGLOBIN 40.2 pg (27.0-33.4); MEAN CORPUSCULAR HGB CONC 34.1 g/dL (32.0-36.0); PLATELET COUNT 122 10^3/uL (150-450); RED BLOOD COUNT 1.68 10^6/uL (3.72-5.28); RED CELL DISTRIBUTION WIDTH 19.3 % (11.5-14.0); WHITE BLOOD COUNT 3.7 10^3/uL (4.0-10.5)
--- NOTE | 2017-06-12 11:00 | RADIOLOGY REPORT (SQ) ---
EXAM DESCRIPTION: CHEST SINGLE VIEW COMPLETED DATE/TIME: 06/12/2017 10:36 am REASON FOR STUDY: sob COMPARISON: April 2017 EXAM PARAMETERS: NUMBER OF VIEWS: One view. TECHNIQUE: Single frontal radiographic view of the chest acquired. RADIATION DOSE: NA LIMITATIONS: None. FINDINGS: LUNGS AND PLEURA: No opacities, masses or pneumothorax. No pleural effusion. MEDIASTINUM AND HILAR STRUCTURES: No masses. Contour normal. HEART AND VASCULAR STRUCTURES: Cardiac silhouette is enlarged and unchanged in configuration. BONES: No acute findings. HARDWARE: Transvenous pacemaker is unchanged in position. Patient is status post median sternotomy OTHER: No other significant finding. IMPRESSION: Cardiomegaly. No acute consolidations are identified. Other findings as noted above TECHNICAL DOCUMENTATION: JOB ID: [id number] [employer]- All Rights Reserved
[2017-06-12 11:13] LABS: ABSOLUTE LYMPHOCYTES# (MANUAL) 1.3 10^3/uL (0.5-4.7); ABSOLUTE MONOCYTES # (MANUAL) 0.1 10^3/uL (0.1-1.4); ABSOLUTE NEUTROPHILS# (MANUAL) 2.2 10^3/uL (1.7-8.2); BAND NEUTROPHILS % (MANUAL) 5 % (3-5); BASOPHILS % (MANUAL) 0 % (0-2); EOSINOPHILS % (MANUAL) 3 % (0-6); LYMPHOCYTES % (MANUAL) 36 % (13-45); MONOCYTES % (MANUAL) 2 % (3-13); NUCLEATED RED BLOOD CELLS 1 /100 WBC (0); SEGMENTED NEUTROPHILS % (MAN) 54 % (42-78); TOTAL CELLS COUNTED 100
[2017-06-12 11:16] LABS: ANISOCYTOSIS 1+; HYPOCHROMASIA 2+; OVALOCYTES SLIGHT; PLATELET COMMENT ADEQUATE; POIKILOCYTOSIS 1+; TEAR DROP CELLS SLIGHT
[2017-06-12 11:17] LABS: MEAN CORPUSCULAR VOLUME 118 fl (80-97)
[2017-06-12 11:20] LABS: HEMOGLOBIN 6.8 g/dL (12.0-15.5)
[2017-06-12 11:35] LABS: APPEARANCE,URINE SLIGHTLY-CLOUDY; BILIRUBIN,URINE NEGATIVE (NEGATIVE); COLOR,URINE YELLOW; GLUCOSE, URINE NEGATIVE (NEGATIVE); KETONES,URINE NEGATIVE (NEGATIVE); LEUKOCYTE ESTERASE,URINE TRACE (NEGATIVE); NITRITE,URINE NEGATIVE (NEGATIVE); PROTEIN,URINE 30 mg/dL (NEGATIVE); URINE SPECIFIC GRAVITY 1.016; UROBILINOGEN,URINE NEGATIVE mg/dL (<2.0)
[2017-06-12 11:49] LABS: URINE AMPHETAMINES SCREEN NEGATIVE; URINE BARBITURATES SCREEN NEGATIVE; URINE BENZODIAZEPINES SCREEN NEGATIVE; URINE COCAINE SCREEN NEGATIVE; URINE MARIJUANA (THC) SCREEN NEGATIVE; URINE METHADONE SCREEN NEGATIVE; URINE PHENCYCLIDINE SCREEN NEGATIVE
[2017-06-12] MEDS ORDERED: NORMAL SALINE 250 ML IV PRN ×2 (11:55)
[2017-06-12] MEDS ORDERED: FUROSEMIDE INJ/PF 40 MG/4 ML SDV IV PRN (11:55)
--- NOTE | 2017-06-12 11:57 | ER Document Report ---
ED General - General Chief Complaint: General Weakness Stated Complaint: WEAKNESS Time Seen by Provider: 06/12/17 10:03 TRAVEL OUTSIDE OF THE [place] IN LAST 30 DAYS: No - HPI Patient complains to provider of: Generalized weakness Notes: Patient coming in for generalized weakness. Patient states is been ongoing for the last 3 weeks. Patient states 3 weeks ago she slid down the ditch breaking her right wrist which is currently in cast. Patient states since that time has had generalized disability states difficulty in breathing upon walking dyspnea on exertion. Patient denies any fever chills nausea vomiting dysuria chest pain abdominal pain or other recent head trauma. Patient is resting comfortably upon my evaluation. - Related Data Allergies/Adverse Reactions: aspirin Allergy (Verified 06/03/17 22:32) Penicillins Allergy (Verified 06/03/17 22:32) propoxyphene napsylate [From Darvocet-N 100] Allergy (Verified 06/03/17 22:32) Sulfa (Sulfonamide Antibiotics) Allergy (Verified 06/03/17 22:32) Home Medications: Current Home Medications Cyanocobalamin (Vitamin B-12) [Vitamin B-12 1000 mcg Tablet] 1,000 mcg PO DAILY 06/12/17 [History] Dabigatran Etexilate Mesylate [Pradaxa 75 mg Capsule] 75 mg PO Q12 06/12/17 [ History] Furosemide [Lasix 40 mg Tablet] 40 mg PO DAILY 06/12/17 [History] Metoprolol Succinate [Toprol Xl] 50 mg PO DAILY 06/12/17 [History] Pravastatin Sodium [Pravachol] 40 mg PO DAILY 06/12/17 [History] Tramadol HCl [Ultram] 50 mg PO DAILYP PRN 06/12/17 [History] Past Medical History - Social History Smoking Status: Never Smoker Chew tobacco use (# tins/day): No Frequency of alcohol use: None Drug Abuse: None Family History: Reviewed & Not Pertinent Patient has suicidal ideation: No Patient has homicidal ideation: No - Past Medical History Cardiac Medical History: Reports: Hx Congestive Heart Failure, Hx Heart Attack, Hx Hypercholesterolemia, Hx Hypertension Pulmonary Medical History: Denies: Hx Asthma Neurological Medical History: Denies: Hx Cerebrovascular Accident, Hx Seizures Renal/ Medical History: Denies: Hx Peritoneal Dialysis GI Medical History: Denies: Hx Hepatitis, Hx Hiatal Hernia, Hx Ulcer Musculoskeltal Medical History: Reports Hx Arthritis Psychiatric Medical History: Denies: Hx Depression Infectious Medical History: Denies: Hx Hepatitis Past Surgical History: Reports: Hx Cardiac Catheterization - stents, Hx Cardiac Surgery - open heart, Hx Cholecystectomy, Hx Coronary Stent, Hx Hysterectomy, Hx Open Heart Surgery - 1998. Denies: Hx Mastectomy - lumpectomy, Hx Pacemaker - Immunizations Hx Diphtheria, Pertussis, Tetanus Vaccination: Yes Hx Pneumococcal Vaccination: 05/26/16 Review of Systems - Review of Systems Constitutional: No symptoms reported EENT: No symptoms reported Cardiovascular: No symptoms reported Respiratory: No symptoms reported Gastrointestinal: No symptoms reported Genitourinary: No symptoms reported Female Genitourinary: No symptoms reported Musculoskeletal: Other - Generalized weakness Skin: No symptoms reported Hematologic/Lymphatic: No symptoms reported Neurological/Psychological: No symptoms reported Physical Exam - Vital signs Vitals: Resp 14 06/12/17 09:41 Interpretation: Normal - General General appearance: Appears well, Alert - HEENT Head: Normocephalic, Atraumatic Eyes: Normal Pupils: PERRL - Respiratory Respiratory status: No respiratory distress Chest status: Nontender Breath sounds: Normal Chest palpation: Normal - Cardiovascular Rhythm: Regular Heart sounds: Normal auscultation Murmur: No - Abdominal Inspection: Normal Distension: No distension Bowel sounds: Normal Tenderness: Nontender Organomegaly: No organomegaly - Rectal Stool: Heme negative - Brown stool - Back Back: Normal, Nontender - Extremities General upper extremity: Normal inspection, Nontender, Normal color, Normal ROM , Normal temperature, Other - Left wrist in cast General lower extremity: Normal inspection, Nontender, Normal color, Normal ROM , Normal temperature, Normal weight bearing. No: Emmy's sign - Neurological Neuro grossly intact: Yes Cognition: Normal Orientation: AAOx4 [place] Coma Scale Eye Opening: Spontaneous [place] Coma Scale Verbal: Oriented [place] Coma Scale Motor: Obeys Commands [place] Coma Scale Total: 15 Speech: Normal Motor strength normal: LUE, RUE, LLE, RLE Sensory: Normal - Psychological Associated symptoms: Normal affect, Normal mood - Skin Skin Temperature: Warm Skin Moisture: Dry Skin Color: Normal Course - Re-evaluation Re-evalutation: 06/12/17 14:30 Laboratory studies returned showing a macrocytic anemia. Patient with recent B12 folate and iron studies showing really no abnormality. Rectal exam was negative. Unknown reason when patient is now having a general decline in her hemoglobin discussed with patient agrees transfusion will admit the patient for her transfusion and IV Lasix in between due to her history of CHF. Patient will be admitted - Vital Signs Vital signs: Temp Pulse Resp BP Pulse Ox 97.6 F 76 18 113/52 L 99 06/12/17 14:08 06/12/17 14:08 06/12/17 14:08 06/12/17 14:08 06/12/17 14:08 - Laboratory Result Diagrams: 06/12/17 10:40 06/12/17 09:47 Laboratory results interpreted by me: 06/12/17 06/12/17 06/12/17 09:47 09:47 10:40 WBC 3.7 L RBC 1.68 L Hgb 6.8 L Hct 19.9 L MCV 118 H D MCH 40.2 H RDW 19.3 H Plt Count 122 L Monocytes % (Manual) 2 L Absolute Retic BUN 28 H Est GFR (Non-Af Amer) 51 L Calcium 8.3 L Iron TIBC Ferritin Direct Bilirubin 0.5 H AST 38 H Creatine Kinase < 20 L NT-Pro-B Natriuret Pep 4090 H Total Protein 6.0 L Albumin 3.2 L Vitamin B12 Urine Protein Ur Leukocyte Esterase Crossmatch 06/12/17 06/12/17 06/12/17 10:40 10:40 10:40 WBC RBC Hgb Hct MCV MCH RDW Plt Count Monocytes % (Manual) Absolute Retic 0.027 L BUN Est GFR (Non-Af Amer) Calcium Iron TIBC Ferritin Direct Bilirubin AST Creatine Kinase NT-Pro-B Natriuret Pep Total Protein Albumin Vitamin B12 Urine Protein 30 H Ur Leukocyte Esterase TRACE H Crossmatch See Detail 06/12/17 10:40 WBC RBC Hgb Hct MCV MCH RDW Plt Count Monocytes % (Manual) Absolute Retic BUN Est GFR (Non-Af Amer) Calcium Iron 209.3 H TIBC 248 L Ferritin 1080.00 H Direct Bilirubin AST Creatine Kinase NT-Pro-B Natriuret Pep Total Protein Albumin Vitamin B12 > 1000.0 H Urine Protein Ur Leukocyte Esterase Crossmatch Discharge - Discharge Clinical Impression: Symptomatic anemia requiring transfusion, History of CHF (congestive heart failure), Generalized weakness Condition: Good Disposition: ADMITTED OBSERVATION Admitting Provider: Hospitalist - [facility] Admitted: Telemetry
[2017-06-12 12:18] LABS: ABSOLUTE RETICS # 0.027 10^6/uL (0.028-0.122); RETICULOCYTE COUNT (AUTO) 1.55 % (0.66-2.85)
[2017-06-12] MEDS ORDERED: OXYCODONE-ACETAMINOPHEN 5-325 MG TABLET PO PRN (12:42)
[2017-06-12] MEDS ORDERED: ONDANSETRON HCL INJ/PF 4 MG/2 ML SDV IV PRN (12:42)
[2017-06-12 12:44] LABS: IRON(TIBC) 209.3 ug/dL (37-170)
--- NOTE | 2017-06-12 13:20 | PDOC H&P ---
History of Present Illness Admission Date/PCP: 06/12/17 12:25 PATRICIA MAJANO, Patient complains of: Fatigue History of Present Illness: SUNIL VALDES is a 86 year old female presents to hospital with fatigue. Family states that pt has been declining since Apr 2017. Daughter states that pt has strong odor to stool at home. Nursing reports that pt occult stool was negative. Pt states that she has never had a c-scope or EGD. Family states that pt has had a yellow hue to skin and has become more pale in color. Pt states that she has had to use her bedside commode due to being to weak. Pt states that she has home rehab at home that has been coming to the house since Apr. Pt states that she wants everything done to determine why she is anemic. Past Medical History Cardiac Medical History: Reports: Congestive Heart Failure, Myocardial Infarction, Hyperlipidema, Hypertension Pulmonary Medical History: Denies: Asthma Neurological Medical History: Denies: Seizures GI Medical History: Denies: Hepatitis, Hiatal Hernia Musculoskeltal Medical History: Reports: Arthritis Psychiatric Medical History: Denies: Depression Hematology: Denies: Anemia, Sickle Cell Disease Past Surgical History Past Surgical History: Reports: Cardiac Catheterization - stents, Cholecystectomy, Coronary Stent, Hysterectomy Denies: Amputation, Mastectomy - lumpectomy, Pacemaker Social History Smoking Status: Never Smoker Frequency of Alcohol Use: None Hx Recreational Drug Use: No Hx Prescription Drug Abuse: No Family History Family History: Reviewed & Not Pertinent Parental Family History Reviewed: Yes Children Family History Reviewed: Yes Sibling(s) Family History Reviewed.: Yes Medication/Allergy Home Medications: Cetirizine HCl [Zyrtec 10 mg Tablet] 10 mg PO DAILY 08/27/16 Clopidogrel Bisulfate [Plavix 75 mg Tablet] 75 mg PO DAILY 08/27/16 Dabigatran Etexilate Mesylate [Pradaxa 75 mg Capsule] 75 mg PO BID 08/27/16 Furosemide [Lasix 40 mg Tablet] 40 mg PO DAILY 08/27/16 Isosorbide Mononitrate [Imdur 30 mg Tablet.er] 30 mg PO DAILY 08/27/16 Meclizine HCl [Antivert 25 mg Tablet] 25 mg PO DAILYP PRN 08/27/16 Metoprolol Succinate [Toprol Xl 50 mg Tab.sr] 50 mg PO QHS 08/27/16 Nitroglycerin [Nitrostat 0.4 mg (1/150 Gr) Tabs 25/Bottle] 1 tab SL ASDIR PRN Ondansetron HCl [Zofran 4 mg Tablet] 4 mg PO Q8HP PRN 08/27/16 Oxycodone HCl [Oxy-Ir 5 mg Tablet] 5 mg PO Q12HP PRN 08/27/16 Pravastatin Sodium [Pravachol] 40 mg PO QHS 08/27/16 Tramadol HCl [Ultram 50 mg Tablet] 50 mg PO TIDP PRN 08/27/16 Valsartan [Diovan 80 mg Tablet] 80 mg PO QHS 08/27/16 Allergies/Adverse Reactions: aspirin Allergy (Verified 06/03/17 22:32) Penicillins Allergy (Verified 06/03/17 22:32) propoxyphene napsylate [From Darvocet-N 100] Allergy (Verified 06/03/17 22:32) Sulfa (Sulfonamide Antibiotics) Allergy (Verified 06/03/17 22:32) Review of Systems Constitutional: PRESENT: fatigue, weakness Eyes: ABSENT: visual disturbances Ears: ABSENT: hearing changes Cardiovascular: ABSENT: chest pain, dyspnea on exertion, edema, orthropnea, palpitations Respiratory: ABSENT: cough, hemoptysis Gastrointestinal: PRESENT: other - strong odor with stools. ABSENT: abdominal pain, constipation, diarrhea, hematemesis, hematochezia, nausea, vomiting Genitourinary: ABSENT: dysuria, hematuria Musculoskeletal: ABSENT: joint swelling Integumentary: ABSENT: rash, wounds Neurological: ABSENT: abnormal gait, abnormal speech, confusion, dizziness, focal weakness, syncope Psychiatric: ABSENT: anxiety, depression, homidical ideation, suicidal ideation Endocrine: ABSENT: cold intolerance, heat intolerance, polydipsia, polyuria Hematologic/Lymphatic: ABSENT: easy bleeding, easy bruising Physical Exam Vital Signs: Temp Pulse Resp BP Pulse Ox 18 121/65 99 06/12/17 11:01 06/12/17 11:01 06/12/17 11:01 General appearance: PRESENT: no acute distress, well-developed, well-nourished Head exam: PRESENT: atraumatic, normocephalic Eye exam: PRESENT: conjunctiva pink, EOMI, scleral icterus Ear exam: PRESENT: normal external ear exam Mouth exam: PRESENT: moist, tongue midline Neck exam: ABSENT: carotid bruit, JVD, lymphadenopathy, thyromegaly Respiratory exam: PRESENT: clear to auscultation caitie. ABSENT: rales, rhonchi, wheezes Cardiovascular exam: PRESENT: RRR. ABSENT: diastolic murmur, rubs, systolic murmur Pulses: PRESENT: normal dorsalis pedis pul Vascular exam: PRESENT: normal capillary refill GI/Abdominal exam: PRESENT: normal bowel sounds, soft. ABSENT: distended, guarding, mass, organolmegaly, rebound, tenderness Rectal exam: PRESENT: deferred Extremities exam: PRESENT: full ROM, other - left upper ext with cast in place.. ABSENT: calf tenderness, clubbing, pedal edema Musculoskeletal exam: PRESENT: other - left arm with cast in place. Neurological exam: PRESENT: alert, awake, oriented to person, oriented to place , oriented to time, oriented to situation, CN II-XII grossly intact. ABSENT: motor sensory deficit Psychiatric exam: PRESENT: appropriate affect, normal mood. ABSENT: homicidal ideation, suicidal ideation Skin exam: PRESENT: jaundice, petechiae Results Impressions: Chest X-Ray 06/12/17 10:03 IMPRESSION: Cardiomegaly. No acute consolidations are identified. Other findings as noted above Assessment & Plan - Diagnosis (1) Anemia Qualifiers: Iron deficiency anemia type: chronic blood loss Is this a current diagnosis for this admission?: Yes Plan: Pt had anemia workup done recently which demonstrated an Iron store of 68.3 and retic count 1.55. Pt's stool odor was similar to what you find with GI bleed but occult stool neg. Still concern for GI being source of blood loss. Another consideration would be left upper ext with cast in place. Will stop Pradexa and hold plavix. Pt has never had a C-scope or EGD. Pt will be transfused 2 units of PRBCs. (2) Generalized weakness Is this a current diagnosis for this admission?: Yes Plan: Will check TSH and Free T4. (3) History of CHF (congestive heart failure) Is this a current diagnosis for this admission?: Yes Plan: Pt appears Euvolemic. Will continue to monitor closely. (4) Gastroesophageal reflux disease Is this a current diagnosis for this admission?: Yes Plan: Will place on PPI (5) History of [place] (myocardial infarction) Is this a current diagnosis for this admission?: Yes Plan: Will continue to monitor. (6) Hypertensive disorder Is this a current diagnosis for this admission?: Yes Plan: Will continue BP medication. (7) DVT prophylaxis Is this a current diagnosis for this admission?: Yes Plan: SCD - Time Time Spent: 30 to 50 Minutes Anticipated discharge: Home with Homehealth
[2017-06-12 13:51] LABS: FOLATE 8.24 ng/mL (>2.76)
--- NOTE | 2017-06-12 15:46 | EKG REPORT ---
SEVERITY:- ABNORMAL ECG - VENTRICULAR-PACED RHYTHM : Confirmed by: Jose Raul Lorenzo 12-Jun-2017 15:45:30
[2017-06-12] MEDS: LANSOPRAZOLE 15 MG TAB.RAP.DR PO SCH (17:59)
[2017-06-13 01:21] LABS: ABSOLUTE EOSINOPHILS # (AUTO) 0.1 10^3/uL (0.0-0.6); ABSOLUTE LYMPHOCYTES (AUTO) 1.9 10^3/uL (0.5-4.7); ABSOLUTE MONOCYTES (AUTO) 0.2 10^3/uL (0.1-1.4); ABSOLUTE NEUT (AUTO) 2.5 10^3/uL (1.7-8.2); EOSINOPHILS % (AUTO) 2.3 % (0-6); HEMATOCRIT 24.5 % (36.0-47.0); HEMOGLOBIN 8.8 g/dL (12.0-15.5); LYMPHOCYTES % (AUTO) 39.7 % (13-45); MEAN CORPUSCULAR HEMOGLOBIN 36.9 pg (27.0-33.4); MEAN CORPUSCULAR HGB CONC 36.1 g/dL (32.0-36.0); MONOCYTES % (AUTO) 4.3 % (3-13); PLATELET COUNT 105 10^3/uL (150-450); RED CELL DISTRIBUTION WIDTH 27.9 % (11.5-14.0); SEGMENTED NEUTROPHILS % (AUTO) 52.7 % (42-78); TOTAL CELLS COUNTED % (AUTO) 100 %; WHITE BLOOD COUNT 4.8 10^3/uL (4.0-10.5)
[2017-06-13 01:26] LABS: MEAN CORPUSCULAR VOLUME 102 fl (80-97)
[2017-06-13 01:31] LABS: ANISOCYTOSIS 3+; OVALOCYTES SLIGHT; PLATELET COMMENT ADEQUATE
[2017-06-13] MEDS: LANSOPRAZOLE 15 MG TAB.RAP.DR PO SCH ×2 (05:22→18:47)
[2017-06-13 05:36] LABS: HEMATOCRIT 25.6 % (36.0-47.0); HEMOGLOBIN 9.3 g/dL (12.0-15.5); MEAN CORPUSCULAR HEMOGLOBIN 37.2 pg (27.0-33.4); MEAN CORPUSCULAR HGB CONC 36.3 g/dL (32.0-36.0); MEAN CORPUSCULAR VOLUME 103 fl (80-97); PLATELET COUNT 102 10^3/uL (150-450); RED CELL DISTRIBUTION WIDTH 27.5 % (11.5-14.0); WHITE BLOOD COUNT 4.8 10^3/uL (4.0-10.5)
[2017-06-13 06:11] LABS: ALANINE AMINOTRANSFERASE 60 U/L (9-52); ALBUMIN 3.1 g/dL (3.5-5.0); ALKALINE PHOSPHATASE 54 U/L (38-126); ANION GAP 13 (5-19); ASPARTATE AMINO TRANSFERASE 75 U/L (14-36); BILIRUBIN,DIRECT 0.9 mg/dL (0.0-0.4); BILIRUBIN,TOTAL 2.2 mg/dL (0.2-1.3); BLOOD UREA NITROGEN 30 mg/dL (7-20); CARBON DIOXIDE 25 mmol/L (22-30); CHLORIDE 102 mmol/L (98-107); GLUCOSE 97 mg/dL (75-110); POTASSIUM 4.2 mmol/L (3.6-5.0); SODIUM 140.2 mmol/L (137-145); TOTAL PROTEIN 5.8 g/dL (6.3-8.2)
[2017-06-13 06:23] LABS: ABSOLUTE LYMPHOCYTES# (MANUAL) 2.1 10^3/uL (0.5-4.7); ABSOLUTE MONOCYTES # (MANUAL) 0.1 10^3/uL (0.1-1.4); ABSOLUTE NEUTROPHILS# (MANUAL) 2.5 10^3/uL (1.7-8.2); BAND NEUTROPHILS % (MANUAL) 3 % (3-5); BASOPHILS % (MANUAL) 0 % (0-2); EOSINOPHILS % (MANUAL) 2 % (0-6); LYMPHOCYTES % (MANUAL) 41 % (13-45); MONOCYTES % (MANUAL) 2 % (3-13); SEGMENTED NEUTROPHILS % (MAN) 49 % (42-78); TOTAL CELLS COUNTED 100
[2017-06-13 06:24] LABS: ANISOCYTOSIS 3+; OVALOCYTES 1+; POIKILOCYTOSIS 1+
[2017-06-13 06:25] LABS: PLATELET COMMENT ADEQUATE
[2017-06-13 07:15] LABS: FREE T4 (FREE THYROXINE) 1.69 ng/dL (0.78-2.19)
[2017-06-13 07:29] LABS: THYROID STIMULATING HORMONE 2.89 uIU/mL (0.47-4.68)
[2017-06-13] MEDS ORDERED: TRAMADOL HCL 50 MG TABLET PO PRN (11:01)
--- NOTE | 2017-06-13 11:03 | PDOC PROGRESS REPORT ---
Subjective Progress Note for:: 06/13/17 Subjective:: Pt states that she is feeling better. Pt states that she just had a bowel movement. Physical Exam Vital Signs: Temp Pulse Resp BP Pulse Ox 97.6 F 75 18 140/79 H 97 06/13/17 07:45 06/13/17 07:45 06/13/17 07:45 06/13/17 07:45 06/13/17 07:45 Intake & Output 06/12/17 06/13/17 06/14/17 06:59 06:59 06:59 Intake Total 1942 Output Total 625 Balance 1317 Weight 67.6 kg General appearance: PRESENT: no acute distress, well-developed, well-nourished Head exam: PRESENT: atraumatic, normocephalic Eye exam: PRESENT: conjunctiva pink, EOMI, PERRLA. ABSENT: scleral icterus Ear exam: PRESENT: normal external ear exam Mouth exam: PRESENT: moist, tongue midline Neck exam: ABSENT: carotid bruit, JVD, lymphadenopathy, thyromegaly Respiratory exam: PRESENT: clear to auscultation caitie. ABSENT: rales, rhonchi, wheezes Cardiovascular exam: PRESENT: RRR. ABSENT: diastolic murmur, rubs, systolic murmur Pulses: PRESENT: normal dorsalis pedis pul Vascular exam: PRESENT: normal capillary refill GI/Abdominal exam: PRESENT: normal bowel sounds, soft. ABSENT: distended, guarding, mass, organolmegaly, rebound, tenderness Rectal exam: PRESENT: deferred Extremities exam: PRESENT: full ROM. ABSENT: calf tenderness, clubbing, pedal edema Neurological exam: PRESENT: alert, awake, oriented to person, oriented to place , oriented to time, oriented to situation, CN II-XII grossly intact. ABSENT: motor sensory deficit Psychiatric exam: PRESENT: appropriate affect, normal mood. ABSENT: homicidal ideation, suicidal ideation Skin exam: PRESENT: dry, intact, warm. ABSENT: cyanosis, rash Results Laboratory Results: 06/13/17 04:49 06/13/17 04:49 06/12/17 06/13/17 06/13/17 23:19 00:50 04:49 WBC Cancelled 4.8 RBC Cancelled 2.40 L Hgb Cancelled 8.8 L Hct Cancelled 24.5 L MCV Cancelled 102 H D MCH Cancelled 36.9 H MCHC Cancelled 36.1 H RDW Cancelled 27.9 H Plt Count Cancelled 105 L Seg Neutrophils % Cancelled 52.7 Lymphocytes % Cancelled 39.7 Monocytes % Cancelled 4.3 Eosinophils % Cancelled 2.3 Basophils % Cancelled 1.0 Absolute Neutrophils Cancelled 2.5 Absolute Lymphocytes Cancelled 1.9 Absolute Monocytes Cancelled 0.2 Absolute Eosinophils Cancelled 0.1 Absolute Basophils Cancelled 0.0 Sodium Potassium Chloride Carbon Dioxide Anion Gap BUN Creatinine Est GFR ( Amer) Est GFR (Non-Af Amer) Glucose Calcium Total Bilirubin AST ALT Alkaline Phosphatase Total Protein Albumin TSH 2.89 Free T4 1.69 06/13/17 06/13/17 04:49 04:49 WBC 4.8 RBC 2.50 L Hgb 9.3 L Hct 25.6 L MCV 103 H MCH 37.2 H MCHC 36.3 H RDW 27.5 H Plt Count 102 L Seg Neutrophils % Not Reportable Lymphocytes % Not Reportable Monocytes % Not Reportable Eosinophils % Not Reportable Basophils % Not Reportable Absolute Neutrophils Not Reportable Absolute Lymphocytes Not Reportable Absolute Monocytes Not Reportable Absolute Eosinophils Not Reportable Absolute Basophils Not Reportable Sodium 140.2 Potassium 4.2 Chloride 102 Carbon Dioxide 25 Anion Gap 13 BUN 30 H Creatinine 1.06 Est GFR ( Amer) > 60 Est GFR (Non-Af Amer) 49 L Glucose 97 Calcium 8.0 L Total Bilirubin 2.2 H AST 75 H ALT 60 H Alkaline Phosphatase 54 Total Protein 5.8 L Albumin 3.1 L TSH Free T4 06/12/17 15:14 Troponin I < 0.012 Impressions: Chest X-Ray 06/12/17 10:03 IMPRESSION: Cardiomegaly. No acute consolidations are identified. Other findings as noted above Assessment & Plan - Diagnosis (1) Anemia Qualifiers: Iron deficiency anemia type: chronic blood loss Is this a current diagnosis for this admission?: Yes Plan: S/P 2 Units of PRBCs: Will have this morning's stool hemoocculted. If hemoccults remain negative would still encourage EGD and C-scope as well as Hematology consult. Will stop Pradexa and hold plavix. Pt has never had a C- scope or EGD. (2) Generalized weakness Is this a current diagnosis for this admission?: Yes Plan: TSH normal. (3) History of CHF (congestive heart failure) Is this a current diagnosis for this admission?: Yes Plan: Pt appears Euvolemic. Will continue to monitor closely. (4) Gastroesophageal reflux disease Is this a current diagnosis for this admission?: Yes Plan: Continue PPI (5) History of [place] (myocardial infarction) Is this a current diagnosis for this admission?: Yes Plan: Will continue to monitor. (6) Hypertensive disorder Qualifiers: Hypertension type: essential hypertension Qualified Code(s): I10 - Essential (primary) hypertension Is this a current diagnosis for this admission?: Yes Plan: Will continue BP medication. (7) DVT prophylaxis Is this a current diagnosis for this admission?: Yes Plan: SCD - Time Time Spent with patient: Less than 15 minutes
[2017-06-13] MEDS: ACETAMINOPHEN 325 MG TABLET PO PRN ×2 (11:15→18:48)
[2017-06-13 15:43] LABS: APPEARANCE,URINE SLIGHTLY-CLOUDY; BILIRUBIN,URINE NEGATIVE (NEGATIVE); COLOR,URINE YELLOW; GLUCOSE, URINE NEGATIVE (NEGATIVE); KETONES,URINE NEGATIVE (NEGATIVE); LEUKOCYTE ESTERASE,URINE MODERATE (NEGATIVE); NITRITE,URINE POSITIVE (NEGATIVE); PROTEIN,URINE 30 mg/dL (NEGATIVE); URINE SPECIFIC GRAVITY 1.018
[2017-06-13] MEDS: ATORVASTATIN CALCIUM 10 MG TABLET PO SCH (22:11)
[2017-06-14] MEDS: LANSOPRAZOLE 15 MG TAB.RAP.DR PO SCH ×2 (06:03→17:56)
[2017-06-14] MEDS ORDERED: NORMAL SALINE 250 ML IV PRN ×2 (08:24)
--- NOTE | 2017-06-14 08:32 | PDOC PROGRESS REPORT ---
Subjective Progress Note for:: 06/14/17 Subjective:: The patient is complaining of feeling very weak. She did have a good bowel movement this morning. She has not gotten out of bed. She denies any chest pains or palpitations. She still has occasional shortness of breath. Physical Exam Vital Signs: Temp Pulse Resp BP Pulse Ox 98.1 F 79 17 140/70 H 100 06/14/17 04:18 06/14/17 07:00 06/14/17 04:18 06/14/17 04:18 06/14/17 04:18 Intake & Output 06/13/17 06/14/17 06/15/17 06:59 06:59 06:59 Intake Total 1188 Balance 1188 General appearance: PRESENT: mild distress Head exam: PRESENT: atraumatic Eye exam: PRESENT: conjunctiva pink Neck exam: ABSENT: JVD Respiratory exam: PRESENT: crackles Cardiovascular exam: PRESENT: irregular rhythm, +S2 Pulses: PRESENT: +1 pedal pulses bilateral GI/Abdominal exam: PRESENT: normal bowel sounds, soft Extremities exam: PRESENT: tenderness Musculoskeletal exam: PRESENT: tenderness Neurological exam: PRESENT: alert, awake Results Laboratory Results: 06/13/17 15:24 Urine Color YELLOW Urine Appearance SLIGHTLY-CLOUDY Urine pH 5.0 Ur Specific [place] 1.018 Urine Protein 30 H Urine Glucose (UA) NEGATIVE Urine Ketones NEGATIVE Urine Blood NEGATIVE Urine Nitrite POSITIVE H Ur Leukocyte Esterase MODERATE H Urine WBC (Auto) 158 Urine RBC (Auto) 6 Impressions: Chest X-Ray 06/12/17 10:03 IMPRESSION: Cardiomegaly. No acute consolidations are identified. Other findings as noted above Assessment & Plan - Diagnosis (1) Symptomatic anemia Is this a current diagnosis for this admission?: Yes Plan: We will transfuse 2 more units of packed red blood cells (2) Paroxysmal atrial fibrillation Is this a current diagnosis for this admission?: Yes Plan: We will continue with current treatments. Will hold the blood thinners until the source of anemia has been diagnosed (3) Chronic kidney disease (CKD) Is this a current diagnosis for this admission?: Yes Plan: Stable continue current medications. (4) Coronary artery disease Is this a current diagnosis for this admission?: Yes Plan: Continue current treatment (5) Hypertensive disorder Qualifiers: Hypertension type: essential hypertension Qualified Code(s): I10 - Essential (primary) hypertension Is this a current diagnosis for this admission?: Yes Plan: Continue current medications (6) Generalized weakness Is this a current diagnosis for this admission?: Yes Plan: We will consider out of bed to chair after the transfusion and physical therapy (7) Arm fracture, left Is this a current diagnosis for this admission?: Yes
[2017-06-14] MEDS ORDERED: ONDANSETRON HCL INJ/PF 4 MG/2 ML SDV IV PRN (09:00)
[2017-06-14 09:05] LABS: HEMATOCRIT 26.8 % (36.0-47.0); HEMOGLOBIN 9.3 g/dL (12.0-15.5); MEAN CORPUSCULAR HEMOGLOBIN 36.2 pg (27.0-33.4); MEAN CORPUSCULAR HGB CONC 34.7 g/dL (32.0-36.0); MEAN CORPUSCULAR VOLUME 104 fl (80-97); PLATELET COUNT 125 10^3/uL (150-450); RED CELL DISTRIBUTION WIDTH 27.5 % (11.5-14.0); WHITE BLOOD COUNT 4.1 10^3/uL (4.0-10.5)
[2017-06-14 09:33] LABS: RED BLOOD COUNT 2.57 10^6/uL (3.72-5.28)
[2017-06-14] MEDS: CYANOCOBALAMIN (VITAMIN B-12) 1,000 MCG TABLET PO SCH (09:39)
[2017-06-14] MEDS ORDERED: FUROSEMIDE INJ/PF 40 MG/4 ML SDV IV SCH (10:00)
[2017-06-14] MEDS ORDERED: METOPROLOL SUCCINATE 50 MG TAB.SR.24H PO SCH (10:00)
[2017-06-14] MEDS ORDERED: (PENDING PHARMACY ID) (Pravastatin Sodium [Pravachol] 40 MG) PO SCH (10:00)
[2017-06-14] MEDS ORDERED: FUROSEMIDE 40 MG TABLET PO SCH (10:00)
[2017-06-14 11:31] LABS: APPEARANCE,URINE CLEAR; BILIRUBIN,URINE NEGATIVE (NEGATIVE); CALCIUM OXALATE CRYSTALS,URINE RARE /HPF; COLOR,URINE STRAW; GLUCOSE, URINE NEGATIVE (NEGATIVE); KETONES,URINE NEGATIVE (NEGATIVE); LEUKOCYTE ESTERASE,URINE TRACE (NEGATIVE); NITRITE,URINE NEGATIVE (NEGATIVE); PROTEIN,URINE NEGATIVE (NEGATIVE); URINE SPECIFIC GRAVITY 1.004; UROBILINOGEN,URINE NEGATIVE mg/dL (<2.0)
[2017-06-14] MEDS: ACETAMINOPHEN 325 MG TABLET PO PRN ×2 (14:35→22:12)
--- NOTE | 2017-06-14 15:23 | PDOC CONSULTATION ---
Consultation Consult Date: 06/14/17 Attending physician:: MIKEY GARCIA Consult reason:: I was asked to see this patient, it was noted thru a [facility] consult. however I have been made aware that the the consult was also called in to Dr Diamond. I spoke with Dr Diamond who stated that I was able to continue seeing the patient. this was confirmed with him with RN's in attendance at the EU suite. patient has anemia and has been having nausea and vomitting. patient has not had a GI evaluation in the past according to her. History of Present Illness Admission Date/PCP: 06/13/17 12:20 PATRICIA MAJANO, History of Present Illness: patient was admitted over this weekend for chronic anemia, she is also having nausea and vomiting states that her appetite is very poor, and that that sometimes she will regurgitate her food contents patient says denies any blood she is currently receiving PRBC transfusion patient states no beata blood states that she she has constipation patient says is feeing fatigued and weak and noted that she has fallen according to the patient, and her daughter is in the room, patient says that she has never had a previous GI evaluation she is anxious to return home by Thanksgiving as noted after this note was penned, Dr Diamond had also been contacted about the same patient In my discussion with him, he stated that I could continue to see this patient, he is going to verify with Dr De La Torre for my part, as long the patient receives GI care, whichever physician can see her. she is no longer on any anticoagulation she has stopped that in the past she denies any melena there is some early satiety there is no family history of colon cancer Past Medical History Cardiac Medical History: Reports: Congestive Heart Failure, Myocardial Infarction, Hyperlipidema, Hypertension Pulmonary Medical History: Denies: Asthma Neurological Medical History: Denies: Seizures GI Medical History: Denies: Hepatitis, Hiatal Hernia Musculoskeltal Medical History: Reports: Arthritis Psychiatric Medical History: Denies: Depression Hematology: Denies: Anemia, Sickle Cell Disease Past Surgical History Past Surgical History: Reports: Cardiac Catheterization - stents, Cholecystectomy, Coronary Stent, Hysterectomy Denies: Amputation, Mastectomy - lumpectomy, Pacemaker Social History Smoking Status: Never Smoker Frequency of Alcohol Use: None Hx Recreational Drug Use: No Drugs: None Hx Prescription Drug Abuse: No Family History Family History: Reviewed & Not Pertinent Parental Family History Reviewed: Yes Children Family History Reviewed: Unknown Sibling(s) Family History Reviewed.: Unknown Medication/Allergy Home Medications: Cyanocobalamin (Vitamin B-12) [Vitamin B-12 1000 mcg Tablet] 1,000 mcg PO DAILY 06/12/17 Dabigatran Etexilate Mesylate [Pradaxa 75 mg Capsule] 75 mg PO Q12 06/12/17 Furosemide [Lasix 40 mg Tablet] 40 mg PO DAILY 06/12/17 Metoprolol Succinate [Toprol Xl] 50 mg PO DAILY 06/12/17 Pravastatin Sodium [Pravachol] 40 mg PO DAILY 06/12/17 Tramadol HCl [Ultram] 50 mg PO DAILYP PRN 06/12/17 Allergies/Adverse Reactions: aspirin Allergy (Verified 06/03/17 22:32) Penicillins Allergy (Verified 06/03/17 22:32) propoxyphene napsylate [From Darvocet-N 100] Allergy (Verified 06/03/17 22:32) Sulfa (Sulfonamide Antibiotics) Allergy (Verified 06/03/17 22:32) Review of Systems Constitutional: ABSENT: fever(s), headache(s), night sweats, weakness Eyes: ABSENT: visual disturbances Nose, Mouth, and Throat: ABSENT: mouth pain, sore throat Cardiovascular: PRESENT: dyspnea on exertion. ABSENT: chest pain Respiratory: ABSENT: hemoptysis, sputum Gastrointestinal: PRESENT: constipation, heartburn, nausea, vomiting. ABSENT: diarrhea, hematemesis Genitourinary: ABSENT: dysuria, hematuria, nocturia Musculoskeletal: ABSENT: deformity Neurological: PRESENT: lack of coordination, weakness. ABSENT: syncope, tingling, tremor(s), vertigo Psychiatric: ABSENT: depression, hallucinations Endocrine: ABSENT: polydipsia, polyphagia, polyuria Hematologic/Lymphatic: ABSENT: easy bruising Physical Exam Vital Signs: Temp Pulse Resp BP Pulse Ox 97.7 F 74 18 132/63 H 99 06/14/17 13:05 06/14/17 13:05 06/14/17 13:05 06/14/17 13:05 06/14/17 13:05 Intake & Output 06/13/17 06/14/17 06/15/17 06:59 06:59 06:59 Intake Total 1188 31.3 Balance 1188 31.3 General appearance: PRESENT: mild distress Head exam: PRESENT: atraumatic, normocephalic Eye exam: PRESENT: EOMI, PERRLA. ABSENT: periorbital swelling, scleral icterus Mouth exam: PRESENT: moist, neck supple Throat exam: ABSENT: tonsillar exudate, tonsillogmegaly Neck exam: ABSENT: meningismus, tenderness, thyromegaly Respiratory exam: PRESENT: symmetrical, unlabored. ABSENT: retraction, tachypnea, wheezes Cardiovascular exam: PRESENT: RRR, +S1, +S2 GI/Abdominal exam: PRESENT: soft. ABSENT: Cortez's sign, rebound, rigid, tenderness Extremities exam: ABSENT: joint swelling Musculoskeletal exam: PRESENT: full ROM Neurological exam: PRESENT: oriented to time, oriented to situation, reflexes normal, CN II-XII grossly intact Skin exam: PRESENT: normal color. ABSENT: mottled, pallor, petechiae, urticaria , vesicles Results Laboratory Results: 06/14/17 08:46 06/13/17 06/14/17 06/14/17 15:24 08:46 10:05 WBC 4.1 RBC 2.57 L Hgb 9.3 L Hct 26.8 L MCV 104 H MCH 36.2 H MCHC 34.7 RDW 27.5 H Plt Count 125 L Urine Color YELLOW Urine Appearance SLIGHTLY-CLOUDY Urine pH 5.0 Ur Specific [place] 1.018 Urine Protein 30 H Urine Glucose (UA) NEGATIVE Urine Ketones NEGATIVE Urine Blood NEGATIVE Urine Nitrite POSITIVE H Ur Leukocyte Esterase MODERATE H Urine WBC (Auto) 158 Urine RBC (Auto) 6 Stool Occult Blood NEGATIVE 06/14/17 10:58 WBC RBC Hgb Hct MCV MCH MCHC RDW Plt Count Urine Color STRAW Urine Appearance CLEAR Urine pH 7.0 Ur Specific [place] 1.004 Urine Protein NEGATIVE Urine Glucose (UA) NEGATIVE Urine Ketones NEGATIVE Urine Blood NEGATIVE Urine Nitrite NEGATIVE Ur Leukocyte Esterase TRACE H Urine WBC (Auto) 5 Urine RBC (Auto) 0 Stool Occult Blood Impressions: Chest X-Ray 06/12/17 10:03 IMPRESSION: Cardiomegaly. No acute consolidations are identified. Other findings as noted above Assessment & Plan - Diagnosis (1) Constipation Plan: seems to have improved but has symptoms intermittently could be due to diet/ and or medications combination patient has been having bowel movement during this admission (2) Anemia Qualifiers: Iron deficiency anemia type: chronic blood loss Is this a current diagnosis for this admission?: Yes Plan: anticoagulation has been stopped, but has been having symptoms of fatigue and possible GI bleed patient is willing to have a GI workup should undergo EGD and colonoscopy Risks, benefits and alternatives are explained to the patient in detail further recommendations to follow (3) Diverticulitis Plan: not having current symptoms high fiber diet following colonoscopy (4) Gastroesophageal reflux disease Is this a current diagnosis for this admission?: Yes Plan: has nausea and vomiting and symptoms of regurgitation as well patient does have early satiety she will need EGD she may have atypical symptoms of peptic ulcer disease - Time Time Spent: 50 to 70 Minutes
[2017-06-14] MEDS ORDERED: BISACODYL 5 MG TABEC PO ONE (16:00)
[2017-06-14] MEDS ORDERED: MAGNESIUM CITRATE 296 ML BOTTLE PO ONE (17:00)
[2017-06-14] MEDS: ATORVASTATIN CALCIUM 10 MG TABLET PO SCH (22:12)
[2017-06-15 02:28] LABS: ABSOLUTE EOSINOPHILS # (AUTO) 0.1 10^3/uL (0.0-0.6); ABSOLUTE LYMPHOCYTES (AUTO) 1.4 10^3/uL (0.5-4.7); ABSOLUTE MONOCYTES (AUTO) 0.2 10^3/uL (0.1-1.4); BASOPHILS % (AUTO) 0.7 % (0-2); EOSINOPHILS % (AUTO) 2.9 % (0-6); HEMATOCRIT 31.6 % (36.0-47.0); HEMOGLOBIN 11.1 g/dL (12.0-15.5); LYMPHOCYTES % (AUTO) 38.1 % (13-45); MEAN CORPUSCULAR HEMOGLOBIN 34.3 pg (27.0-33.4); MONOCYTES % (AUTO) 5.3 % (3-13); RED BLOOD COUNT 3.23 10^6/uL (3.72-5.28); RED CELL DISTRIBUTION WIDTH 24.8 % (11.5-14.0); TOTAL CELLS COUNTED % (AUTO) 100 %; WHITE BLOOD COUNT 3.7 10^3/uL (4.0-10.5)
[2017-06-15 02:56] LABS: MEAN CORPUSCULAR VOLUME 98 fl (80-97)
[2017-06-15 02:57] LABS: ANISOCYTOSIS 3+; PLATELET COUNT 91 10^3/uL (150-450); POIKILOCYTOSIS 1+; POLYCHROMASIA SLIGHT
[2017-06-15 02:58] LABS: OVALOCYTES 1+; PLATELET COMMENT DECREASED; TEAR DROP CELLS SLIGHT
[2017-06-15] MEDS: ACETAMINOPHEN 325 MG TABLET PO PRN ×2 (03:50→22:01)
[2017-06-15] MEDS: LANSOPRAZOLE 15 MG TAB.RAP.DR PO SCH ×2 (06:02→19:08)
[2017-06-15 06:37] LABS: HEMATOCRIT 33.6 % (36.0-47.0); HEMOGLOBIN 11.7 g/dL (12.0-15.5); MEAN CORPUSCULAR HEMOGLOBIN 34.3 pg (27.0-33.4); MEAN CORPUSCULAR HGB CONC 34.7 g/dL (32.0-36.0); MEAN CORPUSCULAR VOLUME 99 fl (80-97); RED BLOOD COUNT 3.39 10^6/uL (3.72-5.28); RED CELL DISTRIBUTION WIDTH 25.7 % (11.5-14.0); WHITE BLOOD COUNT 3.8 10^3/uL (4.0-10.5)
[2017-06-15 07:16] LABS: ANION GAP 13 (5-19); BLOOD UREA NITROGEN 25 mg/dL (7-20); CALCIUM 8.9 mg/dL (8.4-10.2); CARBON DIOXIDE 28 mmol/L (22-30); CHLORIDE 102 mmol/L (98-107); GLUCOSE 88 mg/dL (75-110); POTASSIUM 3.9 mmol/L (3.6-5.0); SODIUM 142.5 mmol/L (137-145)
[2017-06-15 07:42] LABS: PLATELET COUNT 91 10^3/uL (150-450)
[2017-06-15] MEDS ORDERED: BISACODYL 5 MG TABEC PO ONE (08:00)
--- NOTE | 2017-06-15 08:55 | PDOC PROGRESS REPORT ---
Subjective Progress Note for:: 06/15/17 Subjective:: The patient states to feel much better. She has completed another 2 units of packed red blood cells. Her H&H is 11.7. She has been up and moving around yesterday she states to feel much stronger. She denies any shortness of breath. Physical Exam Vital Signs: Temp Pulse Resp BP Pulse Ox 97.6 F 77 20 136/74 H 99 06/15/17 07:41 06/15/17 07:41 06/15/17 07:41 06/15/17 07:41 06/15/17 07:41 Intake & Output 06/14/17 06/15/17 06/16/17 06:59 06:59 06:59 Intake Total 1188 2030.0 Output Total 1150 Balance 1188 880.0 General appearance: PRESENT: mild distress Head exam: PRESENT: atraumatic, normocephalic Eye exam: PRESENT: conjunctiva pink Neck exam: ABSENT: JVD Respiratory exam: PRESENT: clear to auscultation caitie Cardiovascular exam: PRESENT: irregular rhythm, +S1, +S2 Pulses: PRESENT: +1 pedal pulses bilateral GI/Abdominal exam: PRESENT: normal bowel sounds, soft Extremities exam: PRESENT: tenderness Musculoskeletal exam: PRESENT: tenderness Neurological exam: PRESENT: alert, awake, oriented to person, oriented to place , oriented to time Results Laboratory Results: 06/15/17 06:15 06/15/17 06:15 06/14/17 06/14/17 06/14/17 08:46 10:05 10:58 WBC 4.1 RBC 2.57 L Hgb 9.3 L Hct 26.8 L MCV 104 H MCH 36.2 H MCHC 34.7 RDW 27.5 H Plt Count 125 L Seg Neutrophils % Lymphocytes % Monocytes % Eosinophils % Basophils % Absolute Neutrophils Absolute Lymphocytes Absolute Monocytes Absolute Eosinophils Absolute Basophils Sodium Potassium Chloride Carbon Dioxide Anion Gap BUN Creatinine Est GFR ( Amer) Est GFR (Non-Af Amer) Glucose Calcium Urine Color STRAW Urine Appearance CLEAR Urine pH 7.0 Ur Specific [place] 1.004 Urine Protein NEGATIVE Urine Glucose (UA) NEGATIVE Urine Ketones NEGATIVE Urine Blood NEGATIVE Urine Nitrite NEGATIVE Ur Leukocyte Esterase TRACE H Urine WBC (Auto) 5 Urine RBC (Auto) 0 Stool Occult Blood NEGATIVE 06/15/17 06/15/17 06/15/17 02:10 06:15 06:15 WBC 3.7 L 3.8 L RBC 3.23 L 3.39 L Hgb 11.1 L 11.7 L Hct 31.6 L 33.6 L MCV 98 H D 99 H MCH 34.3 H 34.3 H MCHC 35.0 34.7 RDW 24.8 H 25.7 H Plt Count 91 L 91 L Seg Neutrophils % 53.0 Lymphocytes % 38.1 Monocytes % 5.3 Eosinophils % 2.9 Basophils % 0.7 Absolute Neutrophils 2.0 Absolute Lymphocytes 1.4 Absolute Monocytes 0.2 Absolute Eosinophils 0.1 Absolute Basophils 0.0 Sodium 142.5 Potassium 3.9 Chloride 102 Carbon Dioxide 28 Anion Gap 13 BUN 25 H Creatinine 0.95 Est GFR ( Amer) > 60 Est GFR (Non-Af Amer) 56 L Glucose 88 Calcium 8.9 Urine Color Urine Appearance Urine pH Ur Specific [place] Urine Protein Urine Glucose (UA) Urine Ketones Urine Blood Urine Nitrite Ur Leukocyte Esterase Urine WBC (Auto) Urine RBC (Auto) Stool Occult Blood Impressions: Chest X-Ray 06/12/17 10:03 IMPRESSION: Cardiomegaly. No acute consolidations are identified. Other findings as noted above Assessment & Plan - Diagnosis (1) Symptomatic anemia Is this a current diagnosis for this admission?: Yes Plan: The patient's symptoms have improved after transfusion of 4 units of packed red blood cells. No signs of bleeding. She is presently scheduled for a colonoscopy and EGD (2) Paroxysmal atrial fibrillation Is this a current diagnosis for this admission?: Yes Plan: We will continue with rate control and discussed with cardiology for possibly starting Eliquis (3) Chronic kidney disease (CKD) Is this a current diagnosis for this admission?: Yes Plan: Stable and improved with hydration (4) Coronary artery disease Is this a current diagnosis for this admission?: Yes Plan: Stable continue current medications (5) Hypertensive disorder Qualifiers: Hypertension type: essential hypertension Qualified Code(s): I10 - Essential (primary) hypertension Is this a current diagnosis for this admission?: Yes (6) Generalized weakness Is this a current diagnosis for this admission?: Yes Plan: Improved with blood transfusions (7) Arm fracture, left Is this a current diagnosis for this admission?: Yes Plan: Left arm forearm cast
[2017-06-15] MEDS ORDERED: MAGNESIUM CITRATE 296 ML BOTTLE PO ONE (09:00)
[2017-06-15] MEDS: CYANOCOBALAMIN (VITAMIN B-12) 1,000 MCG TABLET PO SCH (10:10)
[2017-06-15] MEDS ORDERED: 1/2 NORMAL SALINE 1,000 ML IV PRN (11:06)
[2017-06-15] MEDS ORDERED: DIPHENHYDRAMINE HCL 50 MG/ML VIAL ONE (11:12)
[2017-06-15] MEDS ORDERED: NALOXONE HCL INJ/PF 0.4 MG/1 ML SDV ONE (11:13)
[2017-06-15] MEDS ORDERED: MIDAZOLAM 2 MG/2 ML INJ ONE (11:13)
[2017-06-15] MEDS ORDERED: ONDANSETRON HCL INJ/PF 4 MG/2 ML SDV ONE (11:13)
[2017-06-15] MEDS ORDERED: FENTANYL CITRATE INJ/PF 100 MCG/2 ML AMPUL ONE (11:14)
[2017-06-15] MEDS ORDERED: FLUMAZENIL INJ 0.5 MG/5 ML VIAL ONE (11:14)
[2017-06-15] MEDS ORDERED: GLUCAGON,HUMAN RECOMB 1 MG INJ ONE (11:14)
[2017-06-15] MEDS ORDERED: EPINEPHRINE INJ 1 MG/10 ML DISP.SYRIN ONE (11:14)
[2017-06-15] MEDS: MIDAZOLAM 2 MG/2 ML INJ ONE ×3 (13:00→13:15)
--- NOTE | 2017-06-15 13:31 | Operative Report ---
Operative Report DATE OF SURGERY: 06/15/17 Operative Report: The risks, benefits and alternatives of the procedure including risks of bleeding, perforation requiring surgery are explained to the patient in detail and informed consent was obtained. Patient was taken back to the endoscopy suite and placed in a left, lateral decubital position. Timeout was called. Conscious sedation medications are provided. A rectal examination is done which did not reveal any masses, tears or fissures. An Olympus videoscope was inserted into the patient's rectum. The scope was then carefully advanced all the way to the cecum. Cecum was identified by the usual anatomical landmarks including the ileocecal valve as well as the appendiceal office. Photodocumentation is obtained. The scope was then sequentially pulled back via the various segments of the colon including the ascending colon, hepatic flexure, transverse colon, splenic flexure, descending colon fun to the rectosigmoid portions of the colon. Retroflexion maneuvers performed. Prep is good. The risks benefits and alternatives of the procedure explained to the patient in detail and informed consent is obtained.A GIF Olympus video scope was inserted into the patient's mouth and hypopharynx, the esophagus is identified intubated and insufflated, the scope was then advanced through the esophagus stomach and duodenum, retroflexion maneuver is done ,the esophagus stomach and first and second portions of the duodenum examined PREOPERATIVE DIAGNOSIS: Chronic anemia. 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 Sigmoid diverticulosis. Internal hemorrhoids. Hiatal hernia. Nodular gastritis status post biopsy rule out Helicobacter pylori OPERATION: Colonoscopy with the patient. EGD with biopsy SURGEON: MIKEY GARCIA ANESTHESIA: Moderate Sedation - 4 mg of Versed, 12.5 mcg of fentanyl. 4 mg of Zofran. Conscious sedation monitoring time 30 minutes. TISSUE REMOVED OR ALTERED: As noted above. COMPLICATIONS: None. ESTIMATED BLOOD LOSS: None. INTRAOPERATIVE FINDINGS: As noted above. PROCEDURE: Patient tolerated the procedure well. No immediate postprocedure complications are noted. Patient sent back to her room in good condition. Resume regular diet. Resume regular activity level. We will wait on biopsies and follow-up as outpatient. If no other issues can likely be discharged from the medical standpoint. Discuss findings with family members.
[2017-06-15] MEDS ORDERED: METOPROLOL SUCCINATE 50 MG TAB.SR.24H PO ONE (16:00)
[2017-06-15] MEDS: ATORVASTATIN CALCIUM 10 MG TABLET PO SCH (22:01)
[2017-06-16] MEDS: LANSOPRAZOLE 15 MG TAB.RAP.DR PO SCH (05:53)
[2017-06-16 07:25] LABS: ABSOLUTE EOSINOPHILS # (AUTO) 0.1 10^3/uL (0.0-0.6); ABSOLUTE LYMPHOCYTES (AUTO) 1.3 10^3/uL (0.5-4.7); ABSOLUTE MONOCYTES (AUTO) 0.1 10^3/uL (0.1-1.4); BASOPHILS % (AUTO) 0.7 % (0-2); EOSINOPHILS % (AUTO) 3.9 % (0-6); HEMATOCRIT 31.6 % (36.0-47.0); HEMOGLOBIN 10.8 g/dL (12.0-15.5); LYMPHOCYTES % (AUTO) 37.1 % (13-45); MEAN CORPUSCULAR HEMOGLOBIN 33.8 pg (27.0-33.4); MEAN CORPUSCULAR HGB CONC 34.2 g/dL (32.0-36.0); MEAN CORPUSCULAR VOLUME 99 fl (80-97); MONOCYTES % (AUTO) 2.5 % (3-13); PLATELET COUNT 102 10^3/uL (150-450); RED BLOOD COUNT 3.19 10^6/uL (3.72-5.28); RED CELL DISTRIBUTION WIDTH 24.9 % (11.5-14.0); SEGMENTED NEUTROPHILS % (AUTO) 55.8 % (42-78); TOTAL CELLS COUNTED % (AUTO) 100 %; WHITE BLOOD COUNT 3.6 10^3/uL (4.0-10.5)
[2017-06-16 08:06] LABS: ANISOCYTOSIS 3+; PLATELET COMMENT DECREASED; PLATELET LARGE PRESENT
--- NOTE | 2017-06-16 08:29 | PDOC DISCHARGE SUMMARY ---
General - Admit/Disc Date/PCP Admission Date/Primary Care Provider: 06/13/17 12:20 PATRICIA MAJANO, Discharge Date: 06/16/17 - Discharge Diagnosis (1) Symptomatic anemia Is this a current diagnosis for this admission?: Yes Summary: Resolved. The patient has received 4 units of packed red blood cells with significant improvement (2) Paroxysmal atrial fibrillation Is this a current diagnosis for this admission?: Yes Summary: Her paroxysmal atrial fibrillation is rate controlled. Discussed with cardiology about stopping Pradaxa because of the GI bleed and once the AVM that has been cauterized in the colon heals up with consider starting Eliquis (3) Chronic kidney disease (CKD) Is this a current diagnosis for this admission?: Yes Summary: Stable continue current medications (4) Coronary artery disease Is this a current diagnosis for this admission?: Yes Summary: Stable continue current medications and follow-up with cardiology (5) Hypertensive disorder Is this a current diagnosis for this admission?: Yes Summary: Well controlled with medication (6) Generalized weakness Is this a current diagnosis for this admission?: Yes Summary: Significant improvement in symptomatology after the blood transfusions (7) Arm fracture, left Is this a current diagnosis for this admission?: Yes Summary: Follow-up with orthopedics next week for the removal of the cast - Additional Information Resuscitation Status: Full Code Discharge Diet: As Tolerated Discharge Activity: Activity As Tolerated Home Medications: Cyanocobalamin (Vitamin B-12) [Vitamin B-12 1000 mcg Tablet] 1,000 mcg PO DAILY 06/12/17 Furosemide [Lasix 40 mg Tablet] 40 mg PO DAILY 06/12/17 Metoprolol Succinate [Toprol Xl] 50 mg PO DAILY 06/12/17 Pravastatin Sodium [Pravachol] 40 mg PO DAILY 06/12/17 Tramadol HCl [Ultram] 50 mg PO DAILYP PRN 06/12/17 History of Present Illness History of Present Illness: SUNIL VALDES is a 86 year old female Hospital Course Hospital Course: The patient did well after the hospitalization she has received 2 units of packed red blood cells. He was still feeling weak and lightheaded. She has been transfused another 2 units of packed red blood cells. She underwent a colonoscopy and EGD which showed AVM in the colon and hemorrhoids. The AVM was cauterized. The EGD showed some just inflammation and was taken for H. pylori Physical Exam Vital Signs: Temp Pulse Resp BP Pulse Ox 97.4 F 75 18 106/91 H 96 06/16/17 03:32 06/16/17 07:00 06/16/17 03:32 06/16/17 03:32 06/16/17 03:32 Intake & Output 06/15/17 06/16/17 06/17/17 06:59 06:59 06:59 Intake Total 2030.0 1020 Output Total 1150 Balance 880.0 1020 Weight 68.3 kg General appearance: PRESENT: no acute distress Head exam: PRESENT: atraumatic Eye exam: PRESENT: conjunctiva pink Neck exam: ABSENT: JVD Respiratory exam: PRESENT: clear to auscultation caitie Cardiovascular exam: PRESENT: irregular rhythm, +S1, +S2 Pulses: PRESENT: +1 pedal pulses bilateral GI/Abdominal exam: PRESENT: normal bowel sounds, soft Extremities exam: PRESENT: tenderness Musculoskeletal exam: PRESENT: tenderness Neurological exam: PRESENT: alert, awake Results Laboratory Results: 06/16/17 06:45 06/15/17 06:15 06/16/17 06:45 WBC 3.6 L RBC 3.19 L Hgb 10.8 L Hct 31.6 L MCV 99 H MCH 33.8 H MCHC 34.2 RDW 24.9 H Plt Count 102 L Seg Neutrophils % 55.8 Lymphocytes % 37.1 Monocytes % 2.5 L Eosinophils % 3.9 Basophils % 0.7 Absolute Neutrophils 2.0 Absolute Lymphocytes 1.3 Absolute Monocytes 0.1 Absolute Eosinophils 0.1 Absolute Basophils 0.0 Impressions: Chest X-Ray 06/12/17 10:03 IMPRESSION: Cardiomegaly. No acute consolidations are identified. Other findings as noted above
[2017-06-16 08:50] VITALS: BP 136/74
[2017-06-16] MEDS ORDERED: METOPROLOL SUCCINATE 50 MG TAB.SR.24H PO SCH (10:00)
== END 2017-06-16 09:45 | disposition home health service (06) | DRG 812 ==
LOC: ER 09:32 → EH 12:25 → 4N 13:50 → OBSVTOIN 06-13 12:20
PROVIDERS: ADMIT Emergency Medicine; ATTEND Emergency Medicine
PROC: 30233N1 Transfusion of Nonautologous Red Blood Cells into Peripheral Vein, Percutaneous Approach (ICD-10-PCS; 2017-06-14)
PROC: 0D5L8ZZ Destruction of Transverse Colon, Via Natural or Artificial Opening Endoscopic (ICD-10-PCS; principal; 2017-06-15 12:00)
PROC: 0DB68ZX Excision of Stomach, Via Natural or Artificial Opening Endoscopic, Diagnostic (ICD-10-PCS; 2017-06-15 12:00)
DX: D50.0 Iron deficiency anemia secondary to blood loss (chronic) (principal); I50.32 Chronic diastolic (congestive) heart failure; K55.20 Angiodysplasia of colon without hemorrhage; I12.9 Hypertensive chronic kidney disease with stage 1 through stage 4 chronic kidney disease, or unspecified chronic kidney disease; N18.9 Chronic kidney disease, unspecified; D63.1 Anemia in chronic kidney disease; I48.0 Paroxysmal atrial fibrillation; K57.30 Diverticulosis of large intestine without perforation or abscess without bleeding; K64.8 Other hemorrhoids; K44.9 Diaphragmatic hernia without obstruction or gangrene; K29.70 Gastritis, unspecified, without bleeding; S42.302D Unspecified fracture of shaft of humerus, left arm, subsequent encounter for fracture with routine healing; K59.00 Constipation, unspecified; E78.5 Hyperlipidemia, unspecified; K21.9 Gastro-esophageal reflux disease without esophagitis; I25.10 Atherosclerotic heart disease of native coronary artery without angina pectoris; Z79.899 Other long term (current) drug therapy; I25.2 Old myocardial infarction; Z90.49 Acquired absence of other specified parts of digestive tract; Z95.5 Presence of coronary angioplasty implant and graft; Z90.710 Acquired absence of both cervix and uterus; Z88.6 Allergy status to analgesic agent; Z88.0 Allergy status to penicillin; Z88.2 Allergy status to sulfonamides; Z88.8 Allergy status to other drugs, medicaments and biological substances
CPT/HCPCS: 36415; 36430; 43239; 45388; 51701; 71010; 80048; 80053; 80307; 81001; 82272; 82550; 82553; 82607; 82728; 82746; 82803; 83540; 83550; 83880; 84439; 84443; 84466; 84484; 85025; 85027; 85045; 86850; 86900; 86901; 86920; 88305; 88342; 93005; 93010; 99285; G0378; G8978-GP; G8979-GP; G8987-GO; G8988-GO; J0171; J1200; J1610; J1940; J2250; J2310; J2405; J3010; J3490; P9016

== ENCOUNTER 2017-06-19 18:21 | Inpatient (IN) | payer MEDICARE, MEDICAID ==
--- NOTE | 2017-06-19 19:25 | ER Document Report ---
ED Dizziness/Weakness - General Chief Complaint: General Weakness Stated Complaint: WEAKNESS Time Seen by Provider: 06/19/17 18:46 Notes: This is an 86-year-old female patient was recently hospitalized for GI bleed. Was discharged 2 days ago. Back today complaining of fever. Weakness. Unable to stand. Family members are present states that she has progressive decline since she has been home for the last 2 days. They are frustrated that she was sent home too early. Now she has a fever and do not know why. She was hospitalized it was found that she had a GI bleed. Had upper and lower endoscopy. Had 4 units of blood given. Family member states that nobody ever told him anything with regards to the results. They are frustrated that they have received a call back. TRAVEL OUTSIDE OF THE [place] IN LAST 30 DAYS: No - HPI Patient complains to provider of: Dizziness, Weakness Onset: Yesterday Onset/Duration: Gradual Quality of pain: No pain Severity: Moderate Pain Level: Denies Associated symptoms: Almost fainted, Lightheaded, Weak all over - Related Data Allergies/Adverse Reactions: aspirin Allergy (Verified 06/19/17 18:58) Penicillins Allergy (Verified 06/19/17 18:58) propoxyphene napsylate [From Darvocet-N 100] Allergy (Verified 06/19/17 18:58) Sulfa (Sulfonamide Antibiotics) Allergy (Verified 06/19/17 18:58) Past Medical History - General Information source: Patient, Relative - Social History Smoking Status: Unknown if Ever Smoked Chew tobacco use (# tins/day): No Frequency of alcohol use: None Drug Abuse: None Lives with: Family Family History: Reviewed & Not Pertinent Patient has suicidal ideation: No Patient has homicidal ideation: No - Past Medical History Cardiac Medical History: Reports: Hx Congestive Heart Failure, Hx Heart Attack, Hx Hypercholesterolemia, Hx Hypertension Pulmonary Medical History: Denies: Hx Asthma Neurological Medical History: Denies: Hx Cerebrovascular Accident, Hx Seizures Renal/ Medical History: Denies: Hx Peritoneal Dialysis GI Medical History: Denies: Hx Hepatitis, Hx Hiatal Hernia, Hx Ulcer Musculoskeltal Medical History: Reports Hx Arthritis Psychiatric Medical History: Denies: Hx Depression Infectious Medical History: Denies: Hx Hepatitis Past Surgical History: Reports: Hx Cardiac Catheterization - stents, Hx Cardiac Surgery - open heart, Hx Cholecystectomy, Hx Coronary Stent, Hx Hysterectomy, Hx Open Heart Surgery - 1998. Denies: Hx Mastectomy - lumpectomy, Hx Pacemaker - Immunizations Hx Diphtheria, Pertussis, Tetanus Vaccination: Yes Hx Pneumococcal Vaccination: 05/26/16 Review of Systems - Review of Systems Constitutional: Fever, Malaise, Weakness EENT: No symptoms reported Cardiovascular: No symptoms reported Respiratory: No symptoms reported Gastrointestinal: No symptoms reported Genitourinary: No symptoms reported Female Genitourinary: No symptoms reported Musculoskeletal: No symptoms reported Skin: No symptoms reported Hematologic/Lymphatic: No symptoms reported Neurological/Psychological: No symptoms reported Physical Exam - Vital signs Vitals: Temp Resp Pulse Ox 98.0 F 19 98 06/19/17 21:00 06/19/17 21:00 06/19/17 21:00 Interpretation: Normal - General General appearance: Appears well, Alert, Other - She is pale - HEENT Head: Normocephalic, Atraumatic Eyes: Normal Pupils: PERRL - Respiratory Respiratory status: No respiratory distress Chest status: Nontender Breath sounds: Normal Chest palpation: Normal - Cardiovascular Rhythm: Regular Heart sounds: Normal auscultation Murmur: No - Abdominal Inspection: Normal Distension: No distension Bowel sounds: Normal Tenderness: Nontender Organomegaly: No organomegaly - Back Back: Normal, Nontender - Extremities General upper extremity: Normal inspection, Nontender, Normal color, Normal ROM , Normal temperature General lower extremity: Normal inspection, Tender, Edema - This is a asymmetrical appearing right lower extremity with right calf larger than the left, Normal color, Normal ROM, Normal temperature, Normal weight bearing. No: Emmy's sign - Neurological Neuro grossly intact: Yes Cognition: Normal Orientation: AAOx4 [place] Coma Scale Eye Opening: Spontaneous [place] Coma Scale Verbal: Oriented [place] Coma Scale Motor: Obeys Commands [place] Coma Scale Total: 15 Speech: Normal Motor strength normal: LUE, RUE, LLE, RLE Sensory: Normal - Psychological Associated symptoms: Normal affect, Normal mood - Skin Skin Temperature: Warm Skin Moisture: Dry Skin Color: Pale Course - Re-evaluation Re-evalutation: 06/19/17 19:25 Patient is pale. Recent hospitalization. Fever reported at home. Reported by EMS as well. EMS gave patient Tylenol. Will get blood cultures, lactic acid, CBC and chemistry, chest x-ray, ultrasound of the right lower extremity and reassess. 06/19/17 21:05 Laboratory 06/19/17 06/19/17 06/19/17 19:08 19:29 19:29 WBC 5.1 RBC 3.07 L Hgb 10.5 L Hct 30.4 L MCV 99 H MCH 34.1 H MCHC 34.4 RDW 25.2 H Plt Count 95 L Seg Neutrophils % 78.2 H Lymphocytes % 15.8 Monocytes % 5.1 Eosinophils % 0.4 Basophils % 0.5 Absolute Neutrophils 4.0 Absolute Lymphocytes 0.8 Absolute Monocytes 0.3 Absolute Eosinophils 0.0 Absolute Basophils 0.0 Platelet Comment DECREASED Poikilocytosis 2+ Anisocytosis 3+ Macrocytosis SLIGHT Tear Drop Cells SLIGHT Ovalocytes 1+ Acanthocytes (Spur) 1+ PT 16.5 H INR 1.25 APTT 40.0 H Sodium Potassium Chloride Carbon Dioxide Anion Gap BUN Creatinine Est GFR ( Amer) Est GFR (Non-Af Amer) Glucose Lactic Acid Calcium Total Bilirubin Direct Bilirubin Neonat Total Bilirubin Neonat Direct Bilirubin Neonat Indirect Bili AST ALT Alkaline Phosphatase Creatine Kinase CK-MB (CK-2) Troponin I NT-Pro-B Natriuret Pep Total Protein Albumin Urine Color YELLOW Urine Appearance CLOUDY Urine pH 6.0 Ur Specific [place] 1.012 Urine Protein >=500 H Urine Glucose (UA) NEGATIVE Urine Ketones NEGATIVE Urine Blood SMALL H Urine Nitrite NEGATIVE Urine Bilirubin NEGATIVE Urine Urobilinogen 4.0 H Ur Leukocyte Esterase LARGE H Urine WBC (Auto) >182 Urine RBC (Auto) 16 Urine Bacteria (Auto) 3+ Urine WBC Clumps MANY Squamous Epi Cells Auto 1 U Non-Squamous Epis Auto 3 Urine Mucus (Auto) RARE Urine Ascorbic Acid NEGATIVE 06/19/17 06/19/17 06/19/17 19:29 19:29 19:29 WBC RBC Hgb Hct MCV MCH MCHC RDW Plt Count Seg Neutrophils % Lymphocytes % Monocytes % Eosinophils % Basophils % Absolute Neutrophils Absolute Lymphocytes Absolute Monocytes Absolute Eosinophils Absolute Basophils Platelet Comment Poikilocytosis Anisocytosis Macrocytosis Tear Drop Cells Ovalocytes Acanthocytes (Spur) PT INR APTT Sodium 137.7 Potassium 4.0 Chloride 101 Carbon Dioxide 25 Anion Gap 12 BUN 19 Creatinine 1.04 Est GFR ( Amer) > 60 Est GFR (Non-Af Amer) 50 L Glucose 130 H Lactic Acid 0.9 Calcium 8.4 Total Bilirubin 1.7 H Direct Bilirubin 0.8 H Neonat Total Bilirubin Not Reportable Neonat Direct Bilirubin Not Reportable Neonat Indirect Bili Not Reportable AST 18 ALT 30 Alkaline Phosphatase 55 Creatine Kinase 66 CK-MB (CK-2) < 0.22 Troponin I 0.027 NT-Pro-B Natriuret Pep Total Protein 6.0 L Albumin 3.2 L Urine Color Urine Appearance Urine pH Ur Specific [place] Urine Protein Urine Glucose (UA) Urine Ketones Urine Blood Urine Nitrite Urine Bilirubin Urine Urobilinogen Ur Leukocyte Esterase Urine WBC (Auto) Urine RBC (Auto) Urine Bacteria (Auto) Urine WBC Clumps Squamous Epi Cells Auto U Non-Squamous Epis Auto Urine Mucus (Auto) Urine Ascorbic Acid 06/19/17 19:29 WBC RBC Hgb Hct MCV MCH MCHC RDW Plt Count Seg Neutrophils % Lymphocytes % Monocytes % Eosinophils % Basophils % Absolute Neutrophils Absolute Lymphocytes Absolute Monocytes Absolute Eosinophils Absolute Basophils Platelet Comment Poikilocytosis Anisocytosis Macrocytosis Tear Drop Cells Ovalocytes Acanthocytes (Spur) PT INR APTT Sodium Potassium Chloride Carbon Dioxide Anion Gap BUN Creatinine Est GFR ( Amer) Est GFR (Non-Af Amer) Glucose Lactic Acid Calcium Total Bilirubin Direct Bilirubin Neonat Total Bilirubin Neonat Direct Bilirubin Neonat Indirect Bili AST ALT Alkaline Phosphatase Creatine Kinase CK-MB (CK-2) Troponin I NT-Pro-B Natriuret Pep 4340 H Total Protein Albumin Urine Color Urine Appearance Urine pH Ur Specific [place] Urine Protein Urine Glucose (UA) Urine Ketones Urine Blood Urine Nitrite Urine Bilirubin Urine Urobilinogen Ur Leukocyte Esterase Urine WBC (Auto) Urine RBC (Auto) Urine Bacteria (Auto) Urine WBC Clumps Squamous Epi Cells Auto U Non-Squamous Epis Auto Urine Mucus (Auto) Urine Ascorbic Acid Chest X-Ray 06/19/17 19:20 IMPRESSION: HEART ENLARGED WITHOUT FAILURE. NO OTHER SIGNIFICANT RADIOGRAPHIC FINDING IN THE CHEST. 06/19/17 21:13 Patient with UTI with significant weakness. Started on antibiotics. Blood pressure is 127/69, heart rate 75 and paced, afebrile, sats 98%. Does have elevated BNP but that is chronic. Has enlarged heart but no signs of significant failure. At this time we will admit to the hospital for antibiotics and observation. Consulted hospitalist. Will place on telemetry and observation. 06/19/17 21:52 Ultrasound negative for DVT. Will admit at this time. - Vital Signs Vital signs: Temp Pulse Resp BP Pulse Ox 98.0 F 21 H 127/65 H 97 06/19/17 21:00 06/19/17 21:11 06/19/17 21:11 06/19/17 21:11 - Laboratory Result Diagrams: 06/19/17 19:29 06/19/17 19:29 Laboratory results interpreted by me: 06/19/17 06/19/17 06/19/17 19:08 19:29 19:29 RBC 3.07 L Hgb 10.5 L Hct 30.4 L MCV 99 H MCH 34.1 H RDW 25.2 H Plt Count 95 L Seg Neutrophils % 78.2 H PT 16.5 H APTT 40.0 H Est GFR (Non-Af Amer) Glucose Total Bilirubin Direct Bilirubin NT-Pro-B Natriuret Pep Total Protein Albumin Urine Protein >=500 H Urine Blood SMALL H Urine Urobilinogen 4.0 H Ur Leukocyte Esterase LARGE H 06/19/17 06/19/17 19:29 19:29 RBC Hgb Hct MCV MCH RDW Plt Count Seg Neutrophils % PT APTT Est GFR (Non-Af Amer) 50 L Glucose 130 H Total Bilirubin 1.7 H Direct Bilirubin 0.8 H NT-Pro-B Natriuret Pep 4340 H Total Protein 6.0 L Albumin 3.2 L Urine Protein Urine Blood Urine Urobilinogen Ur Leukocyte Esterase Discharge - Discharge Clinical Impression: Generalized weakness Urinary tract infection Qualifiers: Urinary tract infection type: site unspecified Hematuria presence: without hematuria Qualified Code(s): N39.0 - Urinary tract infection, site not specified Disposition: ADMITTED OBSERVATION Admitting Provider: Hospitalist - [facility] Admitted: Telemetry
[2017-06-19 19:42] LABS: APPEARANCE,URINE CLOUDY; BILIRUBIN,URINE NEGATIVE (NEGATIVE); GLUCOSE, URINE NEGATIVE (NEGATIVE); KETONES,URINE NEGATIVE (NEGATIVE); LEUKOCYTE ESTERASE,URINE LARGE (NEGATIVE); NITRITE,URINE NEGATIVE (NEGATIVE); PROTEIN,URINE >=500 mg/dL (NEGATIVE); URINE SPECIFIC GRAVITY 1.012
[2017-06-19 19:52] LABS: ABSOLUTE LYMPHOCYTES (AUTO) 0.8 10^3/uL (0.5-4.7); ABSOLUTE MONOCYTES (AUTO) 0.3 10^3/uL (0.1-1.4); BASOPHILS % (AUTO) 0.5 % (0-2); EOSINOPHILS % (AUTO) 0.4 % (0-6); HEMATOCRIT 30.4 % (36.0-47.0); HEMOGLOBIN 10.5 g/dL (12.0-15.5); HGB HCT DIFFERENCE 1.1; LYMPHOCYTES % (AUTO) 15.8 % (13-45); MEAN CORPUSCULAR HEMOGLOBIN 34.1 pg (27.0-33.4); MEAN CORPUSCULAR HGB CONC 34.4 g/dL (32.0-36.0); MEAN CORPUSCULAR VOLUME 99 fl (80-97); MONOCYTES % (AUTO) 5.1 % (3-13); RED BLOOD COUNT 3.07 10^6/uL (3.72-5.28); RED CELL DISTRIBUTION WIDTH 25.2 % (11.5-14.0); SEGMENTED NEUTROPHILS % (AUTO) 78.2 % (42-78); WHITE BLOOD COUNT 5.1 10^3/uL (4.0-10.5)
[2017-06-19 19:55] LABS: PROTHROMBIN TIME 16.5 SEC (11.4-15.4)
[2017-06-19 20:02] LABS: ALANINE AMINOTRANSFERASE 30 U/L (9-52); ALBUMIN 3.2 g/dL (3.5-5.0); ALKALINE PHOSPHATASE 55 U/L (38-126); ANION GAP 12 (5-19); ASPARTATE AMINO TRANSFERASE 18 U/L (14-36); BILIRUBIN,DIRECT 0.8 mg/dL (0.0-0.4); BILIRUBIN,TOTAL 1.7 mg/dL (0.2-1.3); BLOOD UREA NITROGEN 19 mg/dL (7-20); CALCIUM 8.4 mg/dL (8.4-10.2); CARBON DIOXIDE 25 mmol/L (22-30); CHLORIDE 101 mmol/L (98-107); CREATINE KINASE 66 U/L (30-135); CREATININE RESULT 1.04 mg/dL (0.52-1.25); GLUCOSE 130 mg/dL (75-110); SODIUM 137.7 mmol/L (137-145)
--- NOTE | 2017-06-19 20:07 | RADIOLOGY REPORT (SQ) ---
EXAM DESCRIPTION: CHEST SINGLE VIEW COMPLETED DATE/TIME: 06/19/2017 7:55 pm REASON FOR STUDY: sob COMPARISON: None. NUMBER OF VIEWS: One view. TECHNIQUE: Single frontal radiographic view of the chest acquired. LIMITATIONS: None. FINDINGS: LUNGS AND PLEURA: No opacities, masses or pneumothorax. No pleural effusion. MEDIASTINUM AND HILAR STRUCTURES: No masses. Contour normal. HEART AND VASCULAR STRUCTURES: Heart enlarged without failure. Normal vasculature. BONES: No acute findings. HARDWARE: Stable midline surgical changes and cardiac pacer. OTHER: No other significant finding. IMPRESSION: HEART ENLARGED WITHOUT FAILURE. NO OTHER SIGNIFICANT RADIOGRAPHIC FINDING IN THE CHEST. TECHNICAL DOCUMENTATION: JOB ID: [id number] [employer]- All Rights Reserved
[2017-06-19 20:14] LABS: CREATINE KINASE MB < 0.22 ng/mL (<4.55); TROPONIN I 0.027 ng/mL
[2017-06-19 20:15] LABS: ACANTHOCYTES 1+; ANISOCYTOSIS 3+; OVALOCYTES 1+; POIKILOCYTOSIS 2+; TEAR DROP CELLS SLIGHT
[2017-06-19] MEDS ORDERED: LEVOFLOXACIN 500 MG/D5W RTU 500 MG/100 ML RTUPB IV ONE (20:18)
[2017-06-19] MEDS ORDERED: ONDANSETRON HCL INJ/PF 4 MG/2 ML SDV IV PRN (21:14)
[2017-06-19] MEDS ORDERED: IPRATROPIUM/ALBUTEROL 0.5-2.5 MG/3 ML AMPUL NEB PRN (21:14)
[2017-06-19] MEDS ORDERED: MAGNESIUM HYDROXIDE SUSP 30 ML UDCUP PO PRN (21:14)
[2017-06-19 21:32] LABS: MAGNESIUM 1.9 mg/dL (1.6-2.3); PHOSPHORUS 2.9 mg/dL (2.5-4.5)
[2017-06-19] MEDS ORDERED: ALPRAZOLAM 0.25 MG TABLET PO SCH (22:00)
--- NOTE | 2017-06-19 22:05 | RADIOLOGY REPORT (SQ) ---
EXAM DESCRIPTION: VENOUS UNILATERAL LOWER COMPLETED DATE/TIME: 06/19/2017 9:56 pm REASON FOR STUDY: pain in right leg and swelling COMPARISON: None. TECHNIQUE: Dynamic and static lino scale and color images acquired of the right leg venous system. S elected spectral images acquired with additional compression and augmentation maneuvers. The contrala teral common femoral vein and saphenofemoral junction were also imaged. Images stored on PACS. LIMITATIONS: None. FINDINGS: COMMON FEMORAL: Normal phasicity, compression and augmentation. No visualized echogenic ma terial on lino scale. No defects on color images. FEMORAL: Normal compression and augmentation. No visualized echogenic material on lino scale. No defe cts on color images. POPLITEAL: Normal compression, augmentation. No visualized echogenic material on lino scale. No defec ts on color images. CALF VESSELS: Normal compression, augmentation. No visualized echogenic material on lino scale. No de fects on color images. GSV and SSV: Normal compression, augmentation. No visualized echogenic material on lino scale. No def ects on color images. ANY DEEP VENOUS INSUFFICIENCY: Not evaluated. ANY EVIDENCE OF POPLITEAL CYST: No. OTHER: No other significant finding. CONTRALATERAL COMMON FEMORAL VEIN AND SAPHENOFEMORAL JUNCTION: Normal phasicity, compression and augmentation. No visualized echogenic material on lino scale. No de fects on color images. IMPRESSION: NO EVIDENCE OF DVT OR SVT IN THE RIGHT LEG. TECHNICAL DOCUMENTATION: JOB ID: [id number] [employer]- All Rights Reserved
[2017-06-19] MEDS ORDERED: IRON SUCROSE COMPLEX INJ/PF 100 MG/5 ML SDV IV ONE (23:32)
[2017-06-19] MEDS ORDERED: CHLORPHENIRAMINE MALEATE 4 MG TABLET PO ONE (23:32)
[2017-06-19] MEDS ORDERED: FLUTICASONE NASAL SPRAY 50 MCG/SPRY 120 SPRAY/16 GM NASL ONE (23:45)
[2017-06-19 23:48] LABS: STAIN REACTIVITY CHECK ACCEPTABLE
[2017-06-19 23:54] LABS: CREATINE KINASE MB < 0.22 ng/mL (<4.55)
[2017-06-20 01:10] LABS: FOLATE 7.69 ng/mL (>2.76)
[2017-06-20] MEDS ORDERED: CHLORPHENIRAMINE MALEATE 4 MG TABLET ONE (01:35)
[2017-06-20] MEDS ORDERED: FLUTICASONE NASAL SPRAY 50 MCG/SPRY 120 SPRAY/16 GM ONE (01:35)
--- NOTE | 2017-06-20 03:28 | PDOC H&P ---
History of Present Illness Admission Date/PCP: 06/19/17 21:28 PATRICIA MAJANO, Patient complains of: Weakness History of Present Illness: SUNIL VALDES is a 86 year old female with a past medical history of upper GI bleed, atrial fibrillation, congestive heart failure, coronary artery disease, dyslipidemia, fall and recent left wrist fracture. Patient complains of severe fatigue and generalized weakness accompanied by fever and dysuria prompting evaluation emergency room where she is found to have mild microcytic anemia, BNP of 4000, and urinalysis suggestive of urinary tract infection. She started on empiric antibiotics and referred to the hospitalist for admission. Patient denies recent antibiotic use. Past Medical History Cardiac Medical History: Reports: Congestive Heart Failure, Myocardial Infarction, Hyperlipidema, Hypertension Pulmonary Medical History: Denies: Asthma Neurological Medical History: Denies: Seizures GI Medical History: Denies: Hepatitis, Hiatal Hernia Musculoskeltal Medical History: Reports: Arthritis Psychiatric Medical History: Denies: Depression Hematology: Reports: Anemia Denies: Sickle Cell Disease Past Surgical History Past Surgical History: Reports: Cardiac Catheterization - stents, Cholecystectomy, Coronary Stent, Hysterectomy Denies: Amputation, Mastectomy - lumpectomy, Pacemaker Social History Information Source: Patient Lives with: Family Smoking Status: Unknown if Ever Smoked Frequency of Alcohol Use: None Hx Recreational Drug Use: No Drugs: None Hx Prescription Drug Abuse: No - Advance Directive Resuscitation Status: Full Code Family History Family History: Hypertension Parental Family History Reviewed: Yes Children Family History Reviewed: Yes Sibling(s) Family History Reviewed.: Yes Medication/Allergy Home Medications: Cyanocobalamin (Vitamin B-12) [Vitamin B-12 1000 mcg Tablet] 1,000 mcg PO DAILY 06/12/17 Furosemide [Lasix 40 mg Tablet] 40 mg PO DAILY 06/12/17 Metoprolol Succinate [Toprol Xl] 50 mg PO DAILY 06/12/17 Pravastatin Sodium [Pravachol] 40 mg PO DAILY 06/12/17 Tramadol HCl [Ultram] 50 mg PO DAILYP PRN 06/12/17 Allergies/Adverse Reactions: aspirin Allergy (Verified 06/19/17 18:58) Penicillins Allergy (Verified 06/19/17 18:58) propoxyphene napsylate [From Darvocet-N 100] Allergy (Verified 06/19/17 18:58) Sulfa (Sulfonamide Antibiotics) Allergy (Verified 06/19/17 18:58) Review of Systems ROS unobtainable: Due to mental status - Patient's history is felt to be unreliable as she answers inconsistently Physical Exam Vital Signs: Temp Pulse Resp BP Pulse Ox 98.2 F 75 15 111/52 L 96 06/19/17 23:11 06/19/17 23:11 06/19/17 23:11 06/19/17 23:11 06/19/17 23:11 General appearance: PRESENT: no acute distress, well-developed, well-nourished Head exam: PRESENT: atraumatic, normocephalic Eye exam: PRESENT: conjunctiva pink, EOMI, PERRLA. ABSENT: scleral icterus Ear exam: PRESENT: normal external ear exam Mouth exam: PRESENT: moist, tongue midline Neck exam: ABSENT: carotid bruit, JVD, lymphadenopathy, thyromegaly Respiratory exam: PRESENT: clear to auscultation caitie. ABSENT: rales, rhonchi, wheezes Cardiovascular exam: PRESENT: RRR. ABSENT: diastolic murmur, rubs, systolic murmur Pulses: PRESENT: normal dorsalis pedis pul Vascular exam: PRESENT: normal capillary refill GI/Abdominal exam: PRESENT: normal bowel sounds, soft. ABSENT: distended, guarding, mass, organolmegaly, rebound, tenderness Rectal exam: PRESENT: deferred Extremities exam: PRESENT: full ROM. ABSENT: calf tenderness, clubbing, pedal edema Neurological exam: PRESENT: alert, awake, oriented to person, oriented to place , oriented to time, oriented to situation, CN II-XII grossly intact. ABSENT: motor sensory deficit Psychiatric exam: PRESENT: appropriate affect, normal mood. ABSENT: homicidal ideation, suicidal ideation Skin exam: PRESENT: dry, intact, warm. ABSENT: cyanosis, rash Results Laboratory Results: 06/19/17 23:05 Iron 36.8 L TIBC 228 L % Saturation 16 Ferritin 1270.00 H Vitamin B12 883.0 Folate 7.69 06/19/17 06/19/17 23:05 23:05 Creatine Kinase 57 CK-MB (CK-2) < 0.22 Troponin I 0.020 Impressions: Chest X-Ray 06/19/17 19:20 IMPRESSION: HEART ENLARGED WITHOUT FAILURE. NO OTHER SIGNIFICANT RADIOGRAPHIC FINDING IN THE CHEST. Venous Doppler Study 06/19/17 19:20 IMPRESSION: NO EVIDENCE OF DVT OR SVT IN THE RIGHT LEG. Assessment & Plan - Diagnosis (1) Generalized weakness Is this a current diagnosis for this admission?: Yes Plan: Patient is profoundly weak and fatigued unable to tolerate standing, orthostatic blood pressures and physical therapy evaluation. (2) Urinary tract infectious disease Qualifiers: Urinary tract infection type: site unspecified Hematuria presence: without hematuria Qualified Code(s): N39.0 - Urinary tract infection, site not specified Is this a current diagnosis for this admission?: Yes Plan: Empiric Levaquin follow-up urine culture and CBC (3) Anemia Is this a current diagnosis for this admission?: Yes Plan: Anemia workup ordered follow-up though likely iron deficient given recent GI bleed. Iron ordered empirically follow-up CBC (4) Constipation Is this a current diagnosis for this admission?: Yes Plan: Bowel regiment (5) History of CHF (congestive heart failure) Is this a current diagnosis for this admission?: Yes Plan: Patient is without orthostasis currently lying flat without oxygen in no acute distress. Currently compensated and euvolemic. - Time Time Spent: 30 to 50 Minutes
[2017-06-20 07:21] LABS: ABSOLUTE LYMPHOCYTES (AUTO) 0.9 10^3/uL (0.5-4.7); ABSOLUTE MONOCYTES (AUTO) 0.3 10^3/uL (0.1-1.4); ABSOLUTE NEUT (AUTO) 4.2 10^3/uL (1.7-8.2); BASOPHILS % (AUTO) 0.5 % (0-2); EOSINOPHILS % (AUTO) 0.5 % (0-6); HEMATOCRIT 29.2 % (36.0-47.0); HEMOGLOBIN 10.1 g/dL (12.0-15.5); HGB HCT DIFFERENCE 1.1; LYMPHOCYTES % (AUTO) 16.8 % (13-45); MEAN CORPUSCULAR HEMOGLOBIN 34.3 pg (27.0-33.4); MEAN CORPUSCULAR HGB CONC 34.6 g/dL (32.0-36.0); MEAN CORPUSCULAR VOLUME 99 fl (80-97); MONOCYTES % (AUTO) 5.9 % (3-13); RED BLOOD COUNT 2.95 10^6/uL (3.72-5.28); RED CELL DISTRIBUTION WIDTH 23.8 % (11.5-14.0); SEGMENTED NEUTROPHILS % (AUTO) 76.3 % (42-78); WHITE BLOOD COUNT 5.5 10^3/uL (4.0-10.5)
[2017-06-20 07:35] LABS: ALANINE AMINOTRANSFERASE 31 U/L (9-52); ALBUMIN 2.9 g/dL (3.5-5.0); ALKALINE PHOSPHATASE 51 U/L (38-126); ANION GAP 12 (5-19); ASPARTATE AMINO TRANSFERASE 17 U/L (14-36); BILIRUBIN,DIRECT 0.9 mg/dL (0.0-0.4); BILIRUBIN,TOTAL 1.6 mg/dL (0.2-1.3); BLOOD UREA NITROGEN 20 mg/dL (7-20); CALCIUM 8.4 mg/dL (8.4-10.2); CARBON DIOXIDE 25 mmol/L (22-30); CHLORIDE 103 mmol/L (98-107); CREATININE RESULT 1.05 mg/dL (0.52-1.25); GLUCOSE 102 mg/dL (75-110); POTASSIUM 4.1 mmol/L (3.6-5.0); SODIUM 139.9 mmol/L (137-145); TOTAL PROTEIN 5.7 g/dL (6.3-8.2)
[2017-06-20 07:46] LABS: ANISOCYTOSIS 2+; OVALOCYTES SLIGHT; POIKILOCYTOSIS SLIGHT
[2017-06-20] MEDS: DOCUSATE SODIUM 100 MG CAPSULE PO SCH ×2 (10:01→17:00)
[2017-06-20] MEDS: FUROSEMIDE 40 MG TABLET PO SCH (10:01)
[2017-06-20] MEDS: METOPROLOL SUCCINATE 50 MG TAB.SR.24H PO SCH (10:01)
[2017-06-20] MEDS: FLUTICASONE NASAL SPRAY 50 MCG/SPRY 120 SPRAY/16 GM NASL SCH ×2 (10:02→23:34)
[2017-06-20] MEDS: ISOSORBIDE MONONITRATE 30 MG TAB.ER.24H PO SCH (10:02)
[2017-06-20] MEDS: POLYETHYLENE GLYCOL 3350 POWDER 17 GM/1 PACKET PO PRN (10:09)
[2017-06-20] MEDS: CETIRIZINE 10 MG TABLET PO PRN (10:09)
--- NOTE | 2017-06-20 11:43 | PDOC PROGRESS REPORT ---
Subjective Progress Note for:: 06/20/17 Subjective:: Complains of generalized weakness. Physical Exam Vital Signs: Temp Pulse Resp BP Pulse Ox 97.2 F 76 20 117/55 L 96 06/20/17 08:01 06/20/17 08:01 06/20/17 08:01 06/20/17 08:01 06/20/17 08:01 Intake & Output 06/19/17 06/20/17 06/21/17 06:59 06:59 06:59 Intake Total 35 Balance 35 Weight 83.2 kg General appearance: PRESENT: no acute distress Eye exam: PRESENT: conjunctiva pink. ABSENT: scleral icterus Mouth exam: PRESENT: moist, tongue midline Neck exam: ABSENT: JVD Respiratory exam: PRESENT: clear to auscultation caitie. ABSENT: rales, rhonchi, wheezes Cardiovascular exam: PRESENT: RRR. ABSENT: diastolic murmur, rubs, systolic murmur GI/Abdominal exam: PRESENT: normal bowel sounds, soft. ABSENT: distended, guarding, mass, organolmegaly, rebound, tenderness Extremities exam: ABSENT: calf tenderness, clubbing, pedal edema Neurological exam: PRESENT: alert, awake, oriented to person, oriented to place , oriented to time, oriented to situation, CN II-XII grossly intact. ABSENT: motor sensory deficit Psychiatric exam: PRESENT: appropriate affect Skin exam: PRESENT: dry, intact, warm. ABSENT: cyanosis, rash Results Laboratory Results: 06/20/17 06:38 06/20/17 06:38 06/19/17 06/20/17 06/20/17 23:05 06:38 06:38 WBC 5.5 RBC 2.95 L Hgb 10.1 L Hct 29.2 L MCV 99 H MCH 34.3 H MCHC 34.6 RDW 23.8 H Plt Count 88 L Seg Neutrophils % 76.3 Lymphocytes % 16.8 Monocytes % 5.9 Eosinophils % 0.5 Basophils % 0.5 Absolute Neutrophils 4.2 Absolute Lymphocytes 0.9 Absolute Monocytes 0.3 Absolute Eosinophils 0.0 Absolute Basophils 0.0 Sodium 139.9 Potassium 4.1 Chloride 103 Carbon Dioxide 25 Anion Gap 12 BUN 20 Creatinine 1.05 Est GFR ( Amer) > 60 Est GFR (Non-Af Amer) 50 L Glucose 102 Calcium 8.4 Iron 36.8 L TIBC 228 L % Saturation 16 Ferritin 1270.00 H Total Bilirubin 1.6 H AST 17 ALT 31 Alkaline Phosphatase 51 Total Protein 5.7 L Albumin 2.9 L Vitamin B12 883.0 Folate 7.69 06/19/17 06/19/17 23:05 23:05 Creatine Kinase 57 CK-MB (CK-2) < 0.22 Troponin I 0.020 Impressions: Chest X-Ray 06/19/17 19:20 IMPRESSION: HEART ENLARGED WITHOUT FAILURE. NO OTHER SIGNIFICANT RADIOGRAPHIC FINDING IN THE CHEST. Venous Doppler Study 06/19/17 19:20 IMPRESSION: NO EVIDENCE OF DVT OR SVT IN THE RIGHT LEG. Assessment & Plan - Diagnosis (1) Bacteremia Is this a current diagnosis for this admission?: Yes Plan: Patient has gram-negative bacteremia. Urinary tract infections the most likely source. Continue with Levaquin. (2) Generalized weakness Is this a current diagnosis for this admission?: Yes Plan: Most likely related to infection. Continue Levaquin. (3) Chronic kidney disease (CKD) Is this a current diagnosis for this admission?: Yes (4) Coronary artery disease Is this a current diagnosis for this admission?: Yes Plan: Denies any chest pain (5) Gastroesophageal reflux disease Is this a current diagnosis for this admission?: Yes (6) History of CHF (congestive heart failure) Is this a current diagnosis for this admission?: Yes Plan: Patient appears to be euvolemic at this time. She does have bacteremia and if her blood pressure decreases any we would give IV fluids cautiously. (7) Hyperlipidemia Is this a current diagnosis for this admission?: Yes (8) Hypertensive disorder Qualifiers: Hypertension type: essential hypertension Qualified Code(s): I10 - Essential (primary) hypertension Is this a current diagnosis for this admission?: Yes (9) Paroxysmal atrial fibrillation Is this a current diagnosis for this admission?: Yes - Time Time Spent with patient: 25-34 minutes - Inpatient Certification Medical Necessity: Need for IV Antibiotics
[2017-06-20] MEDS: ACETAMINOPHEN 325 MG TABLET PO PRN ×3 (12:52→23:35)
[2017-06-20] MEDS ORDERED: LEVOFLOXACIN 500 MG/D5W RTU 500 MG/100 ML RTUPB IV SCH (18:00)
[2017-06-20] MEDS ORDERED: DIPHENHYDRAMINE HCL 25 MG CAPSULE PO PRN (18:49)
[2017-06-21 04:48] LABS: ABSOLUTE EOSINOPHILS # (AUTO) 0.1 10^3/uL (0.0-0.6); ABSOLUTE LYMPHOCYTES (AUTO) 1.7 10^3/uL (0.5-4.7); ABSOLUTE MONOCYTES (AUTO) 0.2 10^3/uL (0.1-1.4); ABSOLUTE NEUT (AUTO) 2.4 10^3/uL (1.7-8.2); BASOPHILS % (AUTO) 0.5 % (0-2); EOSINOPHILS % (AUTO) 3.3 % (0-6); HEMOGLOBIN 9.6 g/dL (12.0-15.5); HGB HCT DIFFERENCE 0.8; LYMPHOCYTES % (AUTO) 37.2 % (13-45); MEAN CORPUSCULAR HEMOGLOBIN 34.3 pg (27.0-33.4); MEAN CORPUSCULAR HGB CONC 34.2 g/dL (32.0-36.0); MEAN CORPUSCULAR VOLUME 100 fl (80-97); MONOCYTES % (AUTO) 4.2 % (3-13); RED BLOOD COUNT 2.79 10^6/uL (3.72-5.28); RED CELL DISTRIBUTION WIDTH 24.7 % (11.5-14.0); SEGMENTED NEUTROPHILS % (AUTO) 54.8 % (42-78); WHITE BLOOD COUNT 4.4 10^3/uL (4.0-10.5)
[2017-06-21 04:57] LABS: ANION GAP 12 (5-19); BLOOD UREA NITROGEN 19 mg/dL (7-20); CALCIUM 7.5 mg/dL (8.4-10.2); CARBON DIOXIDE 26 mmol/L (22-30); CHLORIDE 101 mmol/L (98-107); CREATININE RESULT 0.91 mg/dL (0.52-1.25); GLUCOSE 80 mg/dL (75-110); POTASSIUM 4.4 mmol/L (3.6-5.0); SODIUM 138.8 mmol/L (137-145)
[2017-06-21 05:15] LABS: ANISOCYTOSIS 2+; POIKILOCYTOSIS 1+; POLYCHROMASIA SLIGHT
[2017-06-21 05:16] LABS: OVALOCYTES 1+; SCHISTOCYTES SLIGHT; TEAR DROP CELLS 1+
--- NOTE | 2017-06-21 06:07 | EKG REPORT ---
SEVERITY:- ABNORMAL ECG - AFIB/FLUTTER AND VENTRICULAR-PACED RHYTHM : Confirmed by: Janelle Hill MD 21-Jun-2017 06:06:48
--- NOTE | 2017-06-21 08:39 | PDOC PROGRESS REPORT ---
Subjective Progress Note for:: 06/21/17 Subjective:: The patient states to feel slightly better but she continues to be weak. She has not been able to get out of bed. She states that she felt okay for couple of days after the hospital discharge but then started having fever and ended up in the emergency room. She is complaining of not having had a bowel movement in the past 3 days. Discussed the possibility of rehab. The patient is adamant about going home but after a long conversation she states that she would consider Physical Exam Vital Signs: Temp Pulse Resp BP Pulse Ox 97.5 F 75 16 126/74 H 99 06/21/17 03:50 06/21/17 07:00 06/21/17 03:50 06/21/17 03:50 06/21/17 03:50 Intake & Output 06/20/17 06/21/17 06/22/17 06:59 06:59 06:59 Intake Total 35 385 Output Total 500 Balance 35 -115 Weight 83.2 kg 83.2 kg General appearance: PRESENT: mild distress Head exam: PRESENT: atraumatic Eye exam: PRESENT: conjunctiva pink Neck exam: ABSENT: JVD Cardiovascular exam: PRESENT: irregular rhythm, +S1, +S2 Pulses: PRESENT: +1 pedal pulses bilateral GI/Abdominal exam: PRESENT: normal bowel sounds, soft Extremities exam: PRESENT: tenderness Musculoskeletal exam: PRESENT: tenderness Neurological exam: PRESENT: alert, awake Results Laboratory Results: 06/21/17 03:43 06/21/17 03:43 06/21/17 06/21/17 03:43 03:43 WBC 4.4 RBC 2.79 L Hgb 9.6 L Hct 28.0 L MCV 100 H MCH 34.3 H MCHC 34.2 RDW 24.7 H Plt Count 84 L Seg Neutrophils % 54.8 Lymphocytes % 37.2 Monocytes % 4.2 Eosinophils % 3.3 Basophils % 0.5 Absolute Neutrophils 2.4 Absolute Lymphocytes 1.7 Absolute Monocytes 0.2 Absolute Eosinophils 0.1 Absolute Basophils 0.0 Sodium 138.8 Potassium 4.4 Chloride 101 Carbon Dioxide 26 Anion Gap 12 BUN 19 Creatinine 0.91 Est GFR ( Amer) > 60 Est GFR (Non-Af Amer) 59 L Glucose 80 Calcium 7.5 L 06/19/17 06/19/17 23:05 23:05 Creatine Kinase 57 CK-MB (CK-2) < 0.22 Troponin I 0.020 Impressions: Chest X-Ray 06/19/17 19:20 IMPRESSION: HEART ENLARGED WITHOUT FAILURE. NO OTHER SIGNIFICANT RADIOGRAPHIC FINDING IN THE CHEST. Venous Doppler Study 06/19/17 19:20 IMPRESSION: NO EVIDENCE OF DVT OR SVT IN THE RIGHT LEG. Assessment & Plan - Diagnosis (1) Urinary tract infectious disease Qualifiers: Urinary tract infection type: site unspecified Hematuria presence: without hematuria Qualified Code(s): N39.0 - Urinary tract infection, site not specified Is this a current diagnosis for this admission?: Yes Plan: Continue antibiotics (2) Escherichia coli urinary tract infection Is this a current diagnosis for this admission?: Yes Plan: Most probably because of bacteremia. We will change from IV to p.o. Levaquin (3) Generalized weakness Is this a current diagnosis for this admission?: Yes Plan: Would recommend rehab for 3 weeks (4) Arm fracture, left Is this a current diagnosis for this admission?: Yes Plan: The patient apparently has removed the cast from her left forearm by herself at home after the last hospitalization and prior to this hospitalization. (5) Paroxysmal atrial fibrillation Is this a current diagnosis for this admission?: Yes Plan: We will consult cardiology
[2017-06-21] MEDS ORDERED: MAGNESIUM CITRATE 296 ML BOTTLE PO ONE (09:30)
[2017-06-21] MEDS: POLYETHYLENE GLYCOL 3350 POWDER 17 GM/1 PACKET PO PRN (10:19)
[2017-06-21] MEDS: DOCUSATE SODIUM 100 MG CAPSULE PO SCH ×2 (10:20→18:35)
[2017-06-21] MEDS: METOPROLOL SUCCINATE 50 MG TAB.SR.24H PO SCH (10:20)
[2017-06-21] MEDS: FUROSEMIDE 40 MG TABLET PO SCH (10:20)
[2017-06-21] MEDS: CETIRIZINE 10 MG TABLET PO PRN (10:20)
[2017-06-21] MEDS: FLUTICASONE NASAL SPRAY 50 MCG/SPRY 120 SPRAY/16 GM NASL SCH ×2 (10:20→22:00)
[2017-06-21] MEDS: LEVOFLOXACIN 500 MG TABLET PO SCH (10:20)
[2017-06-21] MEDS: ISOSORBIDE MONONITRATE 30 MG TAB.ER.24H PO SCH (10:20)
[2017-06-21] MEDS: ENOXAPARIN SODIUM INJ 40 MG/0.4 ML DISP.SYRIN SUBCUT SCH (10:56)
[2017-06-21] MEDS ORDERED: IPRATROPIUM/ALBUTEROL 0.5-2.5 MG/3 ML AMPUL NEB PRN (14:00)
[2017-06-21] MEDS ORDERED: ACETAMINOPHEN 325 MG TABLET PO PRN (14:30)
[2017-06-21] MEDS ORDERED: ONDANSETRON HCL INJ/PF 4 MG/2 ML SDV IV PRN (14:30)
[2017-06-21] MEDS ORDERED: POLYETHYLENE GLYCOL 3350 POWDER 17 GM/1 PACKET PO PRN (14:30)
[2017-06-21] MEDS ORDERED: CETIRIZINE 10 MG TABLET PO PRN (14:30)
[2017-06-21] MEDS ORDERED: MAGNESIUM HYDROXIDE SUSP 30 ML UDCUP PO PRN (14:30)
[2017-06-21 19:05] LABS: APPEARANCE,URINE CLEAR; BILIRUBIN,URINE NEGATIVE (NEGATIVE); GLUCOSE, URINE NEGATIVE (NEGATIVE); KETONES,URINE NEGATIVE (NEGATIVE); LEUKOCYTE ESTERASE,URINE TRACE (NEGATIVE); NITRITE,URINE NEGATIVE (NEGATIVE); PROTEIN,URINE 30 mg/dL (NEGATIVE); URINE SPECIFIC GRAVITY 1.012
[2017-06-22 05:33] LABS: HEMATOCRIT 28.1 % (36.0-47.0); HEMOGLOBIN 9.7 g/dL (12.0-15.5); MEAN CORPUSCULAR HEMOGLOBIN 34.7 pg (27.0-33.4); MEAN CORPUSCULAR HGB CONC 34.5 g/dL (32.0-36.0); MEAN CORPUSCULAR VOLUME 101 fl (80-97); RED CELL DISTRIBUTION WIDTH 24.1 % (11.5-14.0); WHITE BLOOD COUNT 3.5 10^3/uL (4.0-10.5)
[2017-06-22 05:48] LABS: ALANINE AMINOTRANSFERASE 30 U/L (9-52); ALBUMIN 2.8 g/dL (3.5-5.0); ALKALINE PHOSPHATASE 54 U/L (38-126); ANION GAP 10 (5-19); ASPARTATE AMINO TRANSFERASE 18 U/L (14-36); BILIRUBIN,DIRECT 0.5 mg/dL (0.0-0.4); BILIRUBIN,TOTAL 0.8 mg/dL (0.2-1.3); BLOOD UREA NITROGEN 18 mg/dL (7-20); CALCIUM 8.1 mg/dL (8.4-10.2); CARBON DIOXIDE 27 mmol/L (22-30); CHLORIDE 102 mmol/L (98-107); CREATININE RESULT 0.92 mg/dL (0.52-1.25); GLUCOSE 83 mg/dL (75-110); POTASSIUM 4.6 mmol/L (3.6-5.0); SODIUM 139.1 mmol/L (137-145); TOTAL PROTEIN 5.4 g/dL (6.3-8.2)
[2017-06-22 06:21] LABS: BASOPHILS % (MANUAL) 0 % (0-2); EOSINOPHILS % (MANUAL) 3 % (0-6); LYMPHOCYTES % (MANUAL) 32 % (13-45); NUCLEATED RED BLOOD CELLS 1 /100 WBC (0); TOTAL CELLS COUNTED 100
[2017-06-22 06:23] LABS: ANISOCYTOSIS 3+
--- NOTE | 2017-06-22 08:35 | PDOC PROGRESS REPORT ---
Subjective Progress Note for:: 06/22/17 Subjective:: The patient states to feel much better. He had a good bowel movement. She was up and in a recliner on her own. Discussed with her and her son about the need for the rehab to improve her strength. Reason For Visit: UTI,BACTEREMIA,GENERAL WEAKNESS Physical Exam Vital Signs: Temp Pulse Resp BP Pulse Ox 98.1 F 75 19 118/53 L 100 06/22/17 03:33 06/22/17 03:33 06/22/17 03:33 06/22/17 03:33 06/22/17 03:33 Intake & Output 06/21/17 06/22/17 06/23/17 06:59 06:59 06:59 Intake Total 385 133 Output Total 500 Balance -115 133 Weight 83.2 kg 83.2 kg General appearance: PRESENT: mild distress Head exam: PRESENT: atraumatic Eye exam: PRESENT: conjunctiva pink Neck exam: ABSENT: carotid bruit, JVD Respiratory exam: PRESENT: clear to auscultation caitie Cardiovascular exam: PRESENT: irregular rhythm, +S1, +S2 Pulses: PRESENT: +1 pedal pulses bilateral GI/Abdominal exam: PRESENT: normal bowel sounds, soft Extremities exam: PRESENT: tenderness Musculoskeletal exam: PRESENT: tenderness Neurological exam: PRESENT: alert, awake Results Laboratory Results: 06/22/17 04:52 06/22/17 04:52 06/21/17 06/22/17 06/22/17 18:20 04:52 04:52 WBC 3.5 L RBC 2.80 L Hgb 9.7 L Hct 28.1 L MCV 101 H MCH 34.7 H MCHC 34.5 RDW 24.1 H Plt Count 89 L Seg Neutrophils % Not Reportable Lymphocytes % Not Reportable Monocytes % Not Reportable Eosinophils % Not Reportable Basophils % Not Reportable Absolute Neutrophils Not Reportable Absolute Lymphocytes Not Reportable Absolute Monocytes Not Reportable Absolute Eosinophils Not Reportable Absolute Basophils Not Reportable Sodium 139.1 Potassium 4.6 Chloride 102 Carbon Dioxide 27 Anion Gap 10 BUN 18 Creatinine 0.92 Est GFR ( Amer) > 60 Est GFR (Non-Af Amer) 58 L Glucose 83 Calcium 8.1 L Total Bilirubin 0.8 AST 18 ALT 30 Alkaline Phosphatase 54 Total Protein 5.4 L Albumin 2.8 L Urine Color YELLOW Urine Appearance CLEAR Urine pH 8.0 Ur Specific [place] 1.012 Urine Protein 30 H Urine Glucose (UA) NEGATIVE Urine Ketones NEGATIVE Urine Blood NEGATIVE Urine Nitrite NEGATIVE Ur Leukocyte Esterase TRACE H Urine WBC (Auto) 24 Urine RBC (Auto) 1 06/19/17 06/19/17 23:05 23:05 Creatine Kinase 57 CK-MB (CK-2) < 0.22 Troponin I 0.020 Impressions: Chest X-Ray 06/19/17 19:20 IMPRESSION: HEART ENLARGED WITHOUT FAILURE. NO OTHER SIGNIFICANT RADIOGRAPHIC FINDING IN THE CHEST. Venous Doppler Study 06/19/17 19:20 IMPRESSION: NO EVIDENCE OF DVT OR SVT IN THE RIGHT LEG. Assessment & Plan - Diagnosis (1) Urinary tract infectious disease Qualifiers: Urinary tract infection type: site unspecified Hematuria presence: without hematuria Qualified Code(s): N39.0 - Urinary tract infection, site not specified Is this a current diagnosis for this admission?: Yes Plan: Continue with fluids and antibiotics (2) Escherichia coli urinary tract infection Is this a current diagnosis for this admission?: Yes Plan: Most probably because of bacteremia. We will change from IV to p.o. Levaquin (3) Generalized weakness Is this a current diagnosis for this admission?: Yes Plan: Improving. Has agreed to go to a short-term rehab (4) Arm fracture, left Is this a current diagnosis for this admission?: Yes Plan: We will consult orthopedics to see if a removable brace with help (5) Paroxysmal atrial fibrillation Is this a current diagnosis for this admission?: Yes Plan: We will consult cardiology to evaluate for anticoagulation due to recent GI bleed
[2017-06-22] MEDS: LEVOFLOXACIN 500 MG TABLET PO SCH (10:00)
[2017-06-22] MEDS: FUROSEMIDE 40 MG TABLET PO SCH (10:00)
[2017-06-22] MEDS: ISOSORBIDE MONONITRATE 30 MG TAB.ER.24H PO SCH (10:00)
[2017-06-22] MEDS ORDERED: LANSOPRAZOLE 30 MG TAB.RAP.DR PO ONE (10:00)
[2017-06-22] MEDS: FLUTICASONE NASAL SPRAY 50 MCG/SPRY 120 SPRAY/16 GM NASL SCH ×2 (10:01→21:29)
[2017-06-22] MEDS: METOPROLOL SUCCINATE 50 MG TAB.SR.24H PO SCH (10:01)
[2017-06-22] MEDS: ENOXAPARIN SODIUM INJ 40 MG/0.4 ML DISP.SYRIN SUBCUT SCH (10:06)
[2017-06-22] MEDS: DOCUSATE SODIUM 100 MG CAPSULE PO SCH ×2 (10:07→17:53)
[2017-06-22] MEDS: LANSOPRAZOLE 30 MG TAB.RAP.DR PO SCH (17:53)
--- NOTE | 2017-06-23 00:43 | CONSULTATION REPORT E ---
Consultation Report NAME: SUNIL VALDES : 1930 AGE: 86Y DATE: 06/22/2017 408 A TO: DIOGO BLANCO M.D. FROM: RAYMUNDO LE M.D. Requesting Physician REASON FOR CONSULTATION: Possibly starting Eliquis on this patient for stroke prophylaxis. HISTORY OF PRESENT ILLNESS: Note, patient was admitted with fever, chills, rigors, and dysuria, and is being treated for a urinary tract infection. The patient states she feels much better. She is able to lie down flat. There is no PND, orthopnea, or leg edema. She has no anginal symptoms. There is no TIA or CVA symptoms. The monitor shows that the patient's underlying rhythm is atrial fibrillation flutter with ventricular paced rhythm. There is no ventricular tachycardia seen. PAST MEDICAL HISTORY: Positive for: 1. History of hypertension which is well controlled. 2. History of coronary artery disease. 3. History of old myocardial infarction. 4. History of stent placement. 5. History of coronary artery bypass graft surgery. 6. No history of diabetes mellitus. 7. No history of thyroid disease. 8. History of GI bleed recently. 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 9. Diverticulosis. 10. History of anemia. 11. Thrombocytopenia. 12. Past history of congestive heart failure. 13. History of cardiomyopathy with an LV ejection fraction of 40% in September of 2016. She has no anginal symptoms. 14. Patient recently fractured her left wrist and it is in a soft cast. 15. Hyperlipidemia. PAST SURGICAL HISTORY: 1. Cardiac catheterization. 2. Stent placement. 3. Coronary artery bypass graft surgery. 4. Cholecystectomy. 5. 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 FAMILY HISTORY: Negative for coronary artery disease and hypertension. ALLERGIES: 1. ASPIRIN. 2. PENICILLIN. 3. PROPOXYPHENE. 4. DARVOCET-N 100. 5. SULFA DRUGS. MEDICATIONS: Include: 1. Acetaminophen 650 mg p.o. q.4 h. p.r.n. 2. Zyrtec 10 mg p.o. daily. 3. Colace 100 mg p.o. b.i.d. 4. Lovenox 40 mg subcutaneously daily. 5. Flonase 2 sprays nasally q.12 h. 6. Lasix 40 mg p.o. daily. 7. Ipratropium-albuterol sulfate 3 mL nebulizer treatment q.8 h. p.r.n. 8. Isosorbide mononitrate 30mg p.o. daily. 9. Prevacid 30 mg p.o. b.i.d. 10. Levaquin 500 mg p.o. daily. 11. Magnesium hydroxide 30 mL p.o. at bedtime p.r.n. 12. Metoprolol succinate/Toprol-XL 50 mg daily. 13. Zofran 4 mg IV q.8 h. p.r.n. 14. Polyethylene Glycol 17 mg p.o. daily p.r.n. SOCIAL HISTORY: The patient does not smoke. There is no history of EtOH abuse. REVIEW OF SYSTEMS: CONSTITUTIONAL: Was admitted with fever, chills, rigors, and found to have a UTI. HEAD: Denies any headaches or head injury. No dizziness. EYES: No history of amblyopia or diplopia. No history of amaurosis fugax. EARS: No history of hearing loss. No history of tinnitus. No history of recurrent ear infections. NOSE: No history of deviated nasal septum. No history of nasal polyps. Patient does have nasal allergies but no hay fever. MOUTH: No history of altered taste sensation. No history of bleeding from the gums. THROAT: No history of odynphagia or dysphagia. No history of recurrent sore throats. SKIN: No history of pruritus. No history of yellowish discoloration of the skin. No history of psoriasis. No history of skin cancer. NECK: No painful or painless swelling of the neck. No goiter. LUNGS: No history of asthma or COPD. No history of sleep apnea. No history of cough or sputum production. No symptoms to suggest pneumonia. No history of sleep apnea. No history of pulmonary embolism. No history of hemoptysis. MUSCULOSKELETAL: History of arthritis present but no collagen vascular disease. Recent left wrist fracture. GI: No history of jaundice. No history of hepatitis. No history of cirrhosis. No history of fatty food intolerance. No history of GI bleed. Had AVM of the hepatic flexure cauterized. She does have diverticulosis. ENDOCRINE: No history of diabetes mellitus. No history of thyroid disease. No history of polydipsia or polyuria. No history of heat or cold intolerance. RENAL: No history of chronic kidney disease. Symptoms of dysuria, pyuria, and fever. Patient being treated for UTI. 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 No history of headaches, migraines, or seizures. PSYCHIATRIC: No history of anxiety or depression. VASCULAR: No history of calf or buttock claudication. No history of DVT. HEMATOLOGIC: Recent GI bleed and anemia. Did receive several blood transfusions in the form of packed RBCs. No clotting disorders. PHYSICAL EXAMINATION: GENERAL: The patient is mildly obese, in no acute distress. VITAL SIGNS: Patient is afebrile with a temperature of 97.5 degrees Fahrenheit, pulse 75 beats per minute, blood pressure 113/66, respirations 18 per minute, O2 sats are 98% on room air. HEAD: Atraumatic, normocephalic. EYES: Pupils are equal, round, regular, and reactive to light and accommodation. Extraocular movements are normal. There is no conjunctival pallor. There is no scleral icterus. EARS: Tympanic membranes are intact. External auditory canals are clear. NOSE: There is no deviated nasal septum. There are no nasal polyps. MOUTH: Mucous membranes of the mouth are moist. Tongue is moist. There are no ulcers. There is no bleeding from the gums. THROAT: There is no redness of the oropharynx. There are no exudates. SKIN: There are no skin rashes. There is petechiae or ecchymosis. There are no skin lesions. NECK: Supple. There is no JVD. Carotids are equal. There is no bruit. There is no goiter. LUNGS: Clear to auscultation and percussion. CARDIAC: S1 and S2 is heard. S1 is of variable intensity. There is no S3 gallop. There is no S4 gallop. There is a systolic murmur in the left sternal border and the apex. There is no rub. ABDOMEN: Soft, nontender. There is no hepatosplenomegaly. Bowel sounds are well heard. There are no tender areas or masses. EXTREMITIES: Femorals are diminished. There are no femoral bruits. Leg pulses are diminished. There is no pedal edema. There is no DVT or cellulitis. There is no calf tenderness. CENTRAL NERVOUS SYSTEM: The patient is conscious, awake, alert, oriented x3, with no focal deficits. PSYCHIATRIC: The patient's judgement and insight are intact. Her affect is normal. IMAGING STUDIES: The patient's chest x-ray shows cardiomegaly without heart failure. The patient's EKG shows atrial fibrillation flutter underlying with a ventricular paced rhythm. LABORATORY DATA: White count is 3,500, hemoglobin is 9.7, hematocrit is 28.1, platelet count is 89,000. Sodium 139.1, potassium 4.6, chloride 102, CO2 27, BUN 18, creatinine 0.92, GFR is mildly reduced at 58 which is chronic kidney disease stage 3, most likely secondary to dehydration. Lactic acid was low at 8.1. Liver function tests are normal. Albumin is 2.8, total protein is 5.4, vitamin B12 was 883, and folate 7.69. On 06/19/17, ProTime was 16.5, INR 1.25, PTT was 14. IMPRESSION: 1. Atrial flutter fibrillation. 2. Thrombocytopenia. 3. History of GI bleed status post AVM ablation/cauterization. The patient does have chronic diverticulosis. 4. UTI. Continue antibiotics. 5. Anemia. Watch for hemoglobin and make sure that there is no drop. 6. Coronary artery disease. No anginal symptoms. 7. Old SD. 8. History of stents. 9. History of coronary artery bypass graft surgery. 10. Hypertension, well controlled. 11. Hyperlipidemia. 12. Permanent pacemaker placement. 13. Cardiomyopathy with an LV ejection fraction of 40% in September of 2016. 14. Recent left wrist fracture. RECOMMENDATIONS: 1. Continue antibiotics. 2. Continue current medications. NOTE: In view of the patient's platelets being low, and the patient having diverticulosis and the patient having anemia, the patient would be at higher risk for bleeding secondary to Eliquis or the new agents. The patient wants me to discuss it with her daughter-in law and we will do that tomorrow. We discussed with *------*. Note, that the patient's corrected CHADS-VASC2 score is at least 3 but in this case, I feel that the risks of anticoagulation are riskier than the benefits from it. We discussed with the patient and the patient's [id number], and also with *------*. Note, that the patient was seen at 11:45 a.m. TIME SPENT: Note that 45 minutes was spent on this patient with more than 50% of the time spent on direct patient care. Medications have been reviewed. Medical decision making was of highly complex nature in view of the need to weigh the risks and benefits of anticoagulation in this patient. DICTATING PHYSICIAN: DIOGO BLANCO M.D. [id number] PHY#: [id number] ID: [id number] JOB#: [id number] ACCT: [id number] cc:DIOGO BLANCO M.D. >
[2017-06-23] MEDS: LANSOPRAZOLE 30 MG TAB.RAP.DR PO SCH (05:26)
[2017-06-23 05:41] LABS: HEMATOCRIT 29.5 % (36.0-47.0); HEMOGLOBIN 10.1 g/dL (12.0-15.5); HGB HCT DIFFERENCE 0.8; MEAN CORPUSCULAR HEMOGLOBIN 34.7 pg (27.0-33.4); MEAN CORPUSCULAR HGB CONC 34.2 g/dL (32.0-36.0); MEAN CORPUSCULAR VOLUME 101 fl (80-97); RED BLOOD COUNT 2.92 10^6/uL (3.72-5.28); RED CELL DISTRIBUTION WIDTH 24.9 % (11.5-14.0); WHITE BLOOD COUNT 3.2 10^3/uL (4.0-10.5)
[2017-06-23 05:59] LABS: ANION GAP 11 (5-19); BLOOD UREA NITROGEN 18 mg/dL (7-20); CALCIUM 8.2 mg/dL (8.4-10.2); CARBON DIOXIDE 28 mmol/L (22-30); CHLORIDE 102 mmol/L (98-107); CREATININE RESULT 1.02 mg/dL (0.52-1.25); GLUCOSE 85 mg/dL (75-110); POTASSIUM 4.2 mmol/L (3.6-5.0); SODIUM 141.3 mmol/L (137-145)
--- NOTE | 2017-06-23 08:20 | PDOC DISCHARGE SUMMARY ---
General - Admit/Disc Date/PCP Admission Date/Primary Care Provider: 06/19/17 21:28 PATRICIA MAJANO, Discharge Date: 06/23/17 - Discharge Diagnosis (2) Escherichia coli urinary tract infection Is this a current diagnosis for this admission?: Yes Summary: Continue Levaquin for 5 more days (3) Generalized weakness Is this a current diagnosis for this admission?: Yes Summary: We will need physical therapy twice a day for at least 3 weeks (4) Arm fracture, left Is this a current diagnosis for this admission?: Yes Summary: Healed and stable continue present treatment (5) Paroxysmal atrial fibrillation Is this a current diagnosis for this admission?: Yes Summary: Restart it on Eliquis as an anticoagulation (6) Anemia Is this a current diagnosis for this admission?: Yes Summary: Status post GI bleed most probably secondary to AVM which was cauterized during colonoscopy. H&H has remained stable around 05/24 (7) Coronary artery disease Is this a current diagnosis for this admission?: Yes Summary: Stable continue current medications (8) Hyperlipidemia Is this a current diagnosis for this admission?: Yes Summary: Continue current medications (9) Hypertensive disorder Is this a current diagnosis for this admission?: Yes (10) Sepsis Is this a current diagnosis for this admission?: Yes Summary: Bacteremia/sepsis secondary to E. coli probably from concurrent urinary tract infection with E. coli - Additional Information Resuscitation Status: Full Code Discharge Diet: As Tolerated Discharge Activity: Activity As Tolerated Home Medications: Cyanocobalamin (Vitamin B-12) [Vitamin B-12 1000 mcg Tablet] 1,000 mcg PO DAILY 06/12/17 Furosemide [Lasix 40 mg Tablet] 40 mg PO DAILY 06/12/17 Metoprolol Succinate [Toprol Xl] 50 mg PO DAILY 06/12/17 Pravastatin Sodium [Pravachol] 40 mg PO QHS 06/12/17 Cetirizine HCl [Zyrtec 10 mg Tablet] 10 mg PO DAILY 06/20/17 Cholecalciferol (Vitamin D3) [Vitamin D3 2000 unit Tablet] 2,000 unit PO DAILY 06/20/17 Docusate Sodium [Colace] 100 mg PO BIDP PRN 06/20/17 Isosorbide Mononitrate [Isosorbide Mononitrate ER] 30 mg PO DAILY 06/20/17 Nitroglycerin 1 tab SL ASDIR PRN 06/20/17 Ondansetron [Zofran Odt 4 mg Tablet] 4 mg PO Q12HP PRN 06/20/17 Polyethylene Glycol 3350 [Miralax Powder 17 gm/Packet] 1 packet PO DAILYP PRN Acetaminophen [Tylenol 325 mg Tablet] 650 mg PO Q4HP PRN tablet 06/23/17 Apixaban [Eliquis 2.5 mg Tablet] 2.5 mg PO BID tablet 06/23/17 Cetirizine HCl [Zyrtec 10 mg Tablet] 10 mg PO DAILYP PRN tablet 06/23/17 Docusate Sodium [Colace 100 mg Capsule] 100 mg PO BID capsule 06/23/17 Fluticasone Propionate [Flonase Nasal [place] 50 Mcg/[place] 16 gm] 2 spray NASL Q12 spray.pump 06/23/17 Lansoprazole [Prevacid 30 mg Odt Tablet] 30 mg PO BID@0600,1700 tab. Levofloxacin [Levaquin 500 mg Tablet] 500 mg PO DAILY #5 tablet 06/23/17 Magnesium Hydroxide [Milk of Magnesia 30 ml Udcup] 30 ml PO HSP PRN udc History of Present Illness History of Present Illness: SUNIL VALDES is a 86 year old female Hospital Course Hospital Course: The patient was admitted 2 days after the discharge from the hospital for the GI bleed posttransfusion and colonoscopy and EGD. The AVM was cauterized in the colon. Her H pylori was negative. He was readmitted with fever chills and has been diagnosed with urinary tract infection and bacteremia most probably consistent with sepsis. The culture showed E. coli sensitive to Levaquin. The patient did well. No signs of bleed. She was started on Lovenox which he tolerated well. Case was discussed with cardiology and a decision has been made to restart patient on Eliquis instead of Pradaxa Physical Exam Vital Signs: Temp Pulse Resp BP Pulse Ox 97.4 F 84 16 127/67 H 100 06/23/17 04:15 06/23/17 04:15 06/23/17 04:15 06/23/17 04:15 06/23/17 04:15 Intake & Output 11/28/17 11/29/17 11/30/17 06:59 06:59 06:59 Intake Total 133 703 Output Total 850 Balance 133 -147 Weight 83.2 kg 82.6 kg General appearance: PRESENT: no acute distress Head exam: PRESENT: atraumatic Eye exam: PRESENT: conjunctiva pink Neck exam: ABSENT: carotid bruit, JVD Respiratory exam: PRESENT: clear to auscultation caitie Cardiovascular exam: PRESENT: irregular rhythm, +S1, +S2 Pulses: PRESENT: +1 pedal pulses bilateral GI/Abdominal exam: PRESENT: normal bowel sounds, soft Extremities exam: PRESENT: tenderness Musculoskeletal exam: PRESENT: tenderness Neurological exam: PRESENT: alert, awake, oriented to person, oriented to place , oriented to time, oriented to situation Results Laboratory Results: 06/23/17 04:42 06/23/17 04:42 06/23/17 06/23/17 04:42 04:42 WBC 3.2 L RBC 2.92 L Hgb 10.1 L Hct 29.5 L MCV 101 H MCH 34.7 H MCHC 34.2 RDW 24.9 H Plt Count 101 L Sodium 141.3 Potassium 4.2 Chloride 102 Carbon Dioxide 28 Anion Gap 11 BUN 18 Creatinine 1.02 Est GFR ( Amer) > 60 Est GFR (Non-Af Amer) 52 L Glucose 85 Calcium 8.2 L 06/19/17 06/19/17 23:05 23:05 Creatine Kinase 57 CK-MB (CK-2) < 0.22 Troponin I 0.020 Impressions: Chest X-Ray 06/19/17 19:20 IMPRESSION: HEART ENLARGED WITHOUT FAILURE. NO OTHER SIGNIFICANT RADIOGRAPHIC FINDING IN THE CHEST. Venous Doppler Study 06/19/17 19:20 IMPRESSION: NO EVIDENCE OF DVT OR SVT IN THE RIGHT LEG.
--- NOTE | 2017-06-23 08:50 | PDOC CONSULTATION ---
Consultation Consult Date: 06/23/17 Consult reason:: History of left forearm fracture. History of Present Illness Admission Date/PCP: 06/19/17 21:28 PATRICIA MAJANO, History of Present Illness: 86-year-old white female with history of left forearm fracture being treated by Dr. Wick at [facility] for surgery. Patient was previously placed in a forearm cast which she had removed before her current hospitalization. Orthopedic services were consulted to determine further management of this forearm fracture. Past Medical History Cardiac Medical History: Reports: Congestive Heart Failure, Myocardial Infarction, Hyperlipidema, Hypertension Pulmonary Medical History: Denies: Asthma Neurological Medical History: Denies: Seizures GI Medical History: Denies: Hepatitis, Hiatal Hernia Musculoskeltal Medical History: Reports: Arthritis Psychiatric Medical History: Denies: Depression Hematology: Reports: Anemia Denies: Sickle Cell Disease Past Surgical History Past Surgical History: Reports: Cardiac Catheterization - stents, Cholecystectomy, Coronary Stent, Hysterectomy Denies: Amputation, Mastectomy - lumpectomy, Pacemaker Social History Lives with: Family Smoking Status: Unknown if Ever Smoked Frequency of Alcohol Use: None Hx Recreational Drug Use: No Drugs: None Hx Prescription Drug Abuse: No - Advance Directive Resuscitation Status: Full Code Family History Family History: Hypertension Parental Family History Reviewed: Yes Children Family History Reviewed: Yes Sibling(s) Family History Reviewed.: Yes Medication/Allergy Home Medications: Cyanocobalamin (Vitamin B-12) [Vitamin B-12 1000 mcg Tablet] 1,000 mcg PO DAILY 06/12/17 Furosemide [Lasix 40 mg Tablet] 40 mg PO DAILY 06/12/17 Metoprolol Succinate [Toprol Xl] 50 mg PO DAILY 06/12/17 Pravastatin Sodium [Pravachol] 40 mg PO QHS 06/12/17 Cetirizine HCl [Zyrtec 10 mg Tablet] 10 mg PO DAILY 06/20/17 Cholecalciferol (Vitamin D3) [Vitamin D3 2000 unit Tablet] 2,000 unit PO DAILY 06/20/17 Docusate Sodium [Colace] 100 mg PO BIDP PRN 06/20/17 Isosorbide Mononitrate [Isosorbide Mononitrate ER] 30 mg PO DAILY 06/20/17 Nitroglycerin 1 tab SL ASDIR PRN 06/20/17 Ondansetron [Zofran Odt 4 mg Tablet] 4 mg PO Q12HP PRN 06/20/17 Polyethylene Glycol 3350 [Miralax Powder 17 gm/Packet] 1 packet PO DAILYP PRN Acetaminophen [Tylenol 325 mg Tablet] 650 mg PO Q4HP PRN tablet 06/23/17 Apixaban [Eliquis 2.5 mg Tablet] 2.5 mg PO BID tablet 06/23/17 Cetirizine HCl [Zyrtec 10 mg Tablet] 10 mg PO DAILYP PRN tablet 06/23/17 Docusate Sodium [Colace 100 mg Capsule] 100 mg PO BID capsule 06/23/17 Fluticasone Propionate [Flonase Nasal Emerson 50 Mcg/Emerson 16 gm] 2 spray NASL Q12 spray.pump 06/23/17 Lansoprazole [Prevacid 30 mg Odt Tablet] 30 mg PO BID@0600,1700 tab. Levofloxacin [Levaquin 500 mg Tablet] 500 mg PO DAILY #5 tablet 06/23/17 Magnesium Hydroxide [Milk of Magnesia 30 ml Udcup] 30 ml PO HSP PRN udc Allergies/Adverse Reactions: aspirin Allergy (Verified 06/19/17 18:58) Penicillins Allergy (Verified 06/19/17 18:58) propoxyphene napsylate [From Darvocet-N 100] Allergy (Verified 06/19/17 18:58) Sulfa (Sulfonamide Antibiotics) Allergy (Verified 06/19/17 18:58) Review of Systems All systems: as per H Physical Exam Vital Signs: Temp Pulse Resp BP Pulse Ox 36.3 C 76 16 127/67 H 100 06/23/17 04:15 06/23/17 07:00 06/23/17 04:15 06/23/17 04:15 06/23/17 04:15 Intake & Output 06/22/17 06/23/17 06/24/17 06:59 06:59 06:59 Intake Total 133 703 Output Total 850 Balance 133 -147 Weight 83.2 kg 82.6 kg General appearance: PRESENT: no acute distress, well-developed, well-nourished Head exam: PRESENT: atraumatic, normocephalic Respiratory exam: PRESENT: unlabored Pulses: PRESENT: normal dorsalis pedis pul, +2 pedal pulses bilateral Extremities exam: PRESENT: tenderness Additional comments: Patient's left upper extremity is in a soft wrist brace. When this brace is removed patient's wrist is well aligned and there is no apparent deformity. There are still focal areas of ecchymosis along the dorsal aspect of the distal radius and ulna as well as the dorsal aspect of the tarsometatarsal joints. Patient is tender to palpation along these focal areas of ecchymosis. She exhibits full range of motion of the wrist in all directions including flexion and extension medial and lateral rotation pronation supination. She has brisk capillary 2 fingers on bilateral upper extremities her sensory motor functions are intact distal neurovascular exam is intact in her upper extremity lengths are equal. Musculoskeletal exam: PRESENT: ambulatory Additional comments: As noted above patient's left upper extremity is now placed in a soft wrist brace. Although a hard cast is ideal for healing this soft brace is in appropriate solution as patient took off her hard cast previously applied. As patient is still experiencing limited strength of the left wrist she may benefit from occupational therapy in the future. Neurological exam: PRESENT: alert, awake, oriented to person, oriented to place , oriented to time, oriented to situation, CN II-XII grossly intact. ABSENT: motor sensory deficit Psychiatric exam: PRESENT: appropriate affect, normal mood. ABSENT: homicidal ideation, suicidal ideation Skin exam: PRESENT: dry, intact, warm. ABSENT: cyanosis, rash Additional comments: As noted there are areas of focal ecchymosis. However there is no evidence of edema, induration or erythema. I am not concerned for infection at this time. These are likely the result of injury that caused her distal forearm fracture. Her skin is otherwise intact with no other noted abnormalities. Results Laboratory Results: 06/23/17 04:42 06/23/17 04:42 06/23/17 06/23/17 04:42 04:42 WBC 3.2 L RBC 2.92 L Hgb 10.1 L Hct 29.5 L MCV 101 H MCH 34.7 H MCHC 34.2 RDW 24.9 H Plt Count 101 L Sodium 141.3 Potassium 4.2 Chloride 102 Carbon Dioxide 28 Anion Gap 11 BUN 18 Creatinine 1.02 Est GFR ( Amer) > 60 Est GFR (Non-Af Amer) 52 L Glucose 85 Calcium 8.2 L 06/19/17 06/19/17 23:05 23:05 Creatine Kinase 57 CK-MB (CK-2) < 0.22 Troponin I 0.020 Impressions: Chest X-Ray 06/19/17 19:20 IMPRESSION: HEART ENLARGED WITHOUT FAILURE. NO OTHER SIGNIFICANT RADIOGRAPHIC FINDING IN THE CHEST. Venous Doppler Study 06/19/17 19:20 IMPRESSION: NO EVIDENCE OF DVT OR SVT IN THE RIGHT LEG. Assessment & Plan - Diagnosis (1) Arm fracture, left Qualifiers: Encounter type: initial encounter Fracture type: closed Qualified Code(s) : S42.302A - Unspecified fracture of shaft of humerus, left arm, initial encounter for closed fracture Is this a current diagnosis for this admission?: Yes - Plan Summary Plan Summary: 86-year-old white female with history of left forearm fracture was previously placed in a hard cast to facilitate healing. Patient removed his cast before her current admission to the hospital. To my knowledge patient had not been placed in any sort of immobilization device at this point. However upon examination this morning she has been placed in a soft wrist brace for the left wrist. This is an acceptable solution for her fracture throughout this hospital stay. Her range of motion appears to be improving from previous assessment in the office. She may eventually benefit from occupational therapy to improve strength of the left wrist. Once patient has been discharged from the hospital she should follow-up with [facility] for surgery with Dr. Lewis or Liborio LAUGHLIN for further management of her forearm fracture. At this point I do not believe she requires any other orthopedic services during her stay in the hospital. Thank you for the consult on this patient.
[2017-06-23 09:37] VITALS: BP 132/69
[2017-06-23] MEDS ORDERED: APIXABAN 2.5 MG TABLET PO SCH (10:00)
[2017-06-23] MEDS: METOPROLOL SUCCINATE 50 MG TAB.SR.24H PO SCH (10:03)
[2017-06-23] MEDS: LEVOFLOXACIN 500 MG TABLET PO SCH (10:03)
[2017-06-23] MEDS: FUROSEMIDE 40 MG TABLET PO SCH (10:04)
[2017-06-23] MEDS: FLUTICASONE NASAL SPRAY 50 MCG/SPRY 120 SPRAY/16 GM NASL SCH (10:04)
[2017-06-23] MEDS: ISOSORBIDE MONONITRATE 30 MG TAB.ER.24H PO SCH (10:04)
[2017-06-23] MEDS: DOCUSATE SODIUM 100 MG CAPSULE PO SCH (10:21)
[2017-06-23] MEDS ORDERED: DIPHENHYDRAMINE HCL 25 MG CAPSULE PO PRN (12:33)
--- NOTE | 2017-06-23 23:38 | PROGRESS NOTE E ---
Progress Note NAME: SUNIL VALDES : 1930 AGE: 86Y DATE: 06/23/2017 ROOM: 408 SUBJECTIVE: The patient denies any chest pain or discomfort. There is no bleeding. She remains in atrial fibrillation with ventricular paced rhythm. There is no PND, orthopnea. There is no leg edema. There is no chest pain or discomfort. OBJECTIVE: GENERAL: On examination the patient is mildly obese, in no acute distress. VITAL SIGNS: She is afebrile with a temperature of 97.3 degrees Fahrenheit, pulse of 76 beats per minute, blood pressure 132/69, respirations are 14 per minute, O2 saturations are 100% on room air. HEENT: Head is atraumatic, normocephalic. Eyes: Pupils are equal, round and regular, reactive to light and accommodation. Extraocular movements are normal. There is no conjunctival pallor. There is no scleral icterus. ENT is negative. NECK: Supple. There is no JVD. There is no lymphadenopathy. There is no goiter. Carotids are equal. There is no bruit. LUNGS: Clear to auscultation and percussion. HEART: S1 and S2 is heard. S1 is variable intensity. There is no S3 gallop. There is no S4 gallop. There is a systolic murmur in the left sternal border and the apex. There is no rub. ABDOMEN: Soft, nontender. There is no hepatosplenomegaly. Bowel sounds are well heard. There are no tender areas or masses. EXTREMITIES: Femorals are diminished. There are no femoral bruits. Leg pulses are diminished. There is no pedal edema. There is no DVT or cellulitis. There is no calf tenderness. CENTRAL NERVOUS SYSTEM: The patient is conscious, awake, alert and oriented x3 with no focal deficits. PSYCHIATRIC: The patient's judgment and insight are intact. Her affect is normal. LABORATORY DATA: The white count is 3200, hemoglobin is 10.1, hematocrit is 29.5, platelet count is 101,000. Sodium is 141.3, potassium is 4.2, chloride is 102, CO2 is 28. The patient's BUN is 18, creatinine is 1.02, GFR is reduced at 52 mL which is chronic kidney disease stage 3. IMPRESSION: 1. ATRIAL FLUTTER/FIBRILLATION. 2. THROMBOCYTOPENIA. 3. HISTORY OF GI BLEED, STATUS POST AVM ABLATION/CAUTERIZATION. The patient does have colonic diverticula. 4. UTI. Continue antibiotics. 5. ANEMIA. Watch her hemoglobin and make sure that there is no drop. 6. CORONARY ARTERY DISEASE. No anginal symptoms. 7. OLD VA. 8. HISTORY OF STENTS. 9. HISTORY OF CORONARY ARTERY BYPASS GRAFT SURGERY. 10. HYPERTENSION, WELL-CONTROLLED. 11. HYPERLIPIDEMIA. 12. PERMANENT PACEMAKER PLACEMENT. 13. CARDIOMYOPATHY WITH LV EJECTION FRACTION OF 40% IN 09/2016. 14. RECENT LEFT WRIST FRACTURE. PLAN: Continue antibiotic, continue current medications. The patient has spoken to Dr. Smith regarding starting Eliquis. The patient, even though she knows that she is slightly high risk for bleeding she does not want to have a stroke and, hence, wants to be on Eliquis. This was an informed decision made by the patient. Discussed with Dr. Smith, the patient is being transferred to a rehab facility. TIME SPENT: Note 30 minutes spent on this patient with more than 50% of the time spent on direct patient care. Medications have been reviewed. The patient will be on Eliquis and other current medications. Medical decision making was of highly complex nature in view of the need to weigh the risks and benefits of anticoagulation in this patient and with the patient making informed decision on being on anticoagulation. We will follow the patient up in the office after she comes out of the rehab. DICTATING PHYSICIAN: DIOGO BLANCO M.D. [id number] CAROLINEY#: [id number] ID: [id number] JOB#: [id number] ACCT: [id number] cc: >
== END 2017-06-23 15:45 | DRG 690 ==
LOC: ER 18:21 → OBSVTOIN 21:28 → EH 21:28 → 4N 22:47
PROVIDERS: ADMIT Internal Medicine; ATTEND Internal Medicine
PROC: 3E0F73Z Introduction of Anti-inflammatory into Respiratory Tract, Via Natural or Artificial Opening (ICD-10-PCS; principal; 2017-06-20)
DX: N39.0 Urinary tract infection, site not specified (principal); I13.0 Hypertensive heart and chronic kidney disease with heart failure and stage 1 through stage 4 chronic kidney disease, or unspecified chronic kidney disease; R78.81 Bacteremia; S42.302D Unspecified fracture of shaft of humerus, left arm, subsequent encounter for fracture with routine healing; R53.1 Weakness; I48.0 Paroxysmal atrial fibrillation; I25.10 Atherosclerotic heart disease of native coronary artery without angina pectoris; E78.5 Hyperlipidemia, unspecified; M19.90 Unspecified osteoarthritis, unspecified site; S52.92XG Unspecified fracture of left forearm, subsequent encounter for closed fracture with delayed healing; I50.9 Heart failure, unspecified; E66.9 Obesity, unspecified; E86.0 Dehydration; D63.1 Anemia in chronic kidney disease; N18.3 Chronic kidney disease, stage 3 (moderate); D69.6 Thrombocytopenia, unspecified; K59.00 Constipation, unspecified; B96.20 Unspecified Escherichia coli [E. coli] as the cause of diseases classified elsewhere; K21.9 Gastro-esophageal reflux disease without esophagitis; Z68.32 Body mass index [BMI] 32.0-32.9, adult; I25.2 Old myocardial infarction; Z95.0 Presence of cardiac pacemaker; Z79.899 Other long term (current) drug therapy; Z95.1 Presence of aortocoronary bypass graft; Z95.5 Presence of coronary angioplasty implant and graft; Z90.49 Acquired absence of other specified parts of digestive tract; Z90.710 Acquired absence of both cervix and uterus; Z88.6 Allergy status to analgesic agent; Z88.0 Allergy status to penicillin; Z88.2 Allergy status to sulfonamides; Z82.49 Family history of ischemic heart disease and other diseases of the circulatory system
CPT/HCPCS: 36415; 71010; 80048; 80053; 81001; 82550; 82553; 82607; 82728; 82746; 83540; 83550; 83605; 83735; 83880; 84100; 84484; 85025; 85027; 85045; 85610; 85730; 87040; 87077; 87086; 87088; 87186; 93005; 93010; 93971; 96365; 99285; G0378; J1650; J1756; J1956; J3490

== ENCOUNTER 2017-06-29 13:18 | Emergency (ER) | payer MEDICARE, MEDICAID ==
--- NOTE | 2017-06-29 13:28 | ER Document Report ---
ED General - General Stated Complaint: SHORTNESS OF BREATH Time Seen by Provider: 06/29/17 13:24 Notes: 86-year-old female with a history of multiple arrhythmias AICD pacer, CAD status post stents and bypass surgery presented with intermittent chest pain or shortness of breath today. She does not have daily chest pain. She was supposed to get a nitroglycerin but did not get any today. Her chest pain was pressure-like, nonradiating, since there was some shortness of breath and is resolved now. Last pain was 2 hours prior to ED arrival. She is seen by Dr. Hill here. Jostled edges are primary. Denies leg edema but has been having exertional dyspnea worse and worse for the past few weeks ever since she was diagnosed with urosepsis and discharged to a rehab facility. Her there is dissatisfied and wants her admitted for further workup cardiologically. She wants to know if there is a blockage. TRAVEL OUTSIDE OF THE [place] IN LAST 30 DAYS: No - Related Data Allergies/Adverse Reactions: aspirin Allergy (Verified 06/19/17 18:58) Penicillins Allergy (Verified 06/19/17 18:58) propoxyphene napsylate [From Darvocet-N 100] Allergy (Verified 06/19/17 18:58) Sulfa (Sulfonamide Antibiotics) Allergy (Verified 06/19/17 18:58) Past Medical History - Social History Smoking Status: Former Smoker Family History: Hypertension - Past Medical History Cardiac Medical History: Reports: Hx Congestive Heart Failure, Hx Heart Attack, Hx Hypercholesterolemia, Hx Hypertension Pulmonary Medical History: Denies: Hx Asthma Neurological Medical History: Denies: Hx Cerebrovascular Accident, Hx Seizures Renal/ Medical History: Denies: Hx Peritoneal Dialysis GI Medical History: Denies: Hx Hepatitis, Hx Hiatal Hernia, Hx Ulcer Musculoskeltal Medical History: Reports Hx Arthritis Psychiatric Medical History: Denies: Hx Depression Infectious Medical History: Denies: Hx Hepatitis Past Surgical History: Reports: Hx Cardiac Catheterization - stents, Hx Cardiac Surgery - open heart, Hx Cholecystectomy, Hx Coronary Stent, Hx Hysterectomy, Hx Open Heart Surgery - 1998. Denies: Hx Mastectomy - lumpectomy, Hx Pacemaker - Immunizations Hx Diphtheria, Pertussis, Tetanus Vaccination: Yes Hx Pneumococcal Vaccination: 05/26/16 Review of Systems - Review of Systems Notes: REVIEW OF SYSTEMS GEN: Denies fever, chills, weight loss. Generalized weakness. ENT: Denies sore throat, nasal discharge, ear pain EYES: Denies blurry vision, eye pain, discharge CV: Intermittent chest pressure, no edema RESP: Denies cough, positive shortness of breath and dyspnea on exertion GI: Denies abdominal pain, nausea, vomiting, diarrhea MSK: Denies joint pain/swelling, edema, SKIN: Denies rash, skin lesions LYMPH: Denies swollen glands/lymph nodes NEURO: Denies headache, focal weakness or numbness, dizziness PSYCH: Denies depression, suicidal or homicidal ideation PHYSICAL EXAMINATION General: No acute distress, well-nourished. Deconditioned. Head: Atraumatic, normocephalic ENT: Mouth normal, oropharynx moist, no exudates or tonsillar enlargement Eyes: Conjunctiva normal, pupils equal, lids normal Neck: No JVD, supple, no guarding CVS: Normal rate, regular rhythm, no murmurs. S3 intermittently heard. Resp: No resp distress, equal and normal breath sounds bilaterally GI: Nondistended, soft, no tenderness to palpation, no rebound or guarding Ext: No deformities, no edema, normal range of motion in upper and lower ext Back: No CVA or midline TTP Skin: No rash, warm Lymphatic: No lymphadeopathy noted Neuro: Awake, alert. Face symmetric. GCS 15. Physical Exam - Vital signs Vitals: Resp 18 06/29/17 13:20 Course - Re-evaluation Re-evalutation: 06/29/17 13:27 86-year-old female with known coronary disease presents with chest pain and worsening shortness of breath. Her vital signs look good, her pressure is low normal, and she does not have stigmata of heart failure other than a simple S3. Differential includes heart failure, acute coronary syndrome, less likely pulmonary embolus or aortic dissection given the history and physical examination. Workup will include EKG, x-ray, BNP troponin 06/29/17 14:20 Chemistry is normal. EKG is paced with no signs of ischemia. Dr. Louis came to the ED to evaluate the patient and agrees that she should be transferred [facility]. He offered to take care of the entire transfer process. I prefilled out an EMTALA form and left it for him to fill out the accepting doctor time and date. - Vital Signs Vital signs: Temp Pulse Resp BP Pulse Ox 98 F 77 18 118/73 95 06/29/17 13:36 06/29/17 13:30 06/29/17 13:20 06/29/17 13:30 06/29/17 13:30 - Laboratory Result Diagrams: 06/29/17 13:40 06/29/17 13:40 Laboratory results interpreted by me: 06/29/17 13:40 Sodium 134.1 L Chloride 94 L BUN 24 H Est GFR ( Amer) 49 L Est GFR (Non-Af Amer) 41 L Glucose 117 H - Diagnostic Test Radiology reviewed: Image reviewed, Reports reviewed - EKG Interpretation by Me Rate: Normal Rhythm: Other - wide, paced Gause/QRS: RBBB When compared to previous EKG there are: No significant change Discharge - Discharge Clinical Impression: History of CHF (congestive heart failure) Chest pain, unspecified Qualifiers: Chest pain type: unspecified Qualified Code(s): R07.9 - Chest pain, unspecified Condition: Fair Disposition: [facility]
[2017-06-29 14:01] LABS: HEMATOCRIT 28.9 % (36.0-47.0); HGB HCT DIFFERENCE 1.1; MEAN CORPUSCULAR HEMOGLOBIN 34.1 pg (27.0-33.4); MEAN CORPUSCULAR HGB CONC 34.4 g/dL (32.0-36.0); MEAN CORPUSCULAR VOLUME 99 fl (80-97); RED BLOOD COUNT 2.92 10^6/uL (3.72-5.28); RED CELL DISTRIBUTION WIDTH 24.8 % (11.5-14.0); WHITE BLOOD COUNT 4.6 10^3/uL (4.0-10.5)
--- NOTE | 2017-06-29 14:05 | RADIOLOGY REPORT (SQ) ---
EXAM DESCRIPTION: CHEST SINGLE VIEW COMPLETED DATE/TIME: 06/29/2017 1:54 pm REASON FOR STUDY: sob COMPARISON: 06/19/2017. NUMBER OF VIEWS: One view. TECHNIQUE: Single frontal radiographic view of the chest acquired. LIMITATIONS: None. FINDINGS: LUNGS AND PLEURA: No opacities, masses or pneumothorax. No pleural effusion. MEDIASTINUM AND HILAR STRUCTURES: No masses. Contour normal. HEART AND VASCULAR STRUCTURES: Heart enlarged without failure. Normal vasculature. BONES: No acute findings. Degenerative changes in the shoulders. HARDWARE: Pacemaker, sternotomy wires, coronary bypass markers. OTHER: No other significant finding. IMPRESSION: HEART ENLARGED WITHOUT FAILURE. NO OTHER SIGNIFICANT RADIOGRAPHIC FINDING IN THE CHEST. TECHNICAL DOCUMENTATION: JOB ID: [id number] [employer]- All Rights Reserved
[2017-06-29 14:13] LABS: ANION GAP 11 (5-19); BLOOD UREA NITROGEN 24 mg/dL (7-20); CALCIUM 8.6 mg/dL (8.4-10.2); CARBON DIOXIDE 29 mmol/L (22-30); CHLORIDE 94 mmol/L (98-107); CREATININE RESULT 1.25 mg/dL (0.52-1.25); GLUCOSE 117 mg/dL (75-110); SODIUM 134.1 mmol/L (137-145)
[2017-06-29 14:25] LABS: TROPONIN I < 0.012 ng/mL
[2017-06-29 14:49] LABS: BAND NEUTROPHILS % (MANUAL) 1 % (3-5); BASOPHILS % (MANUAL) 0 % (0-2); EOSINOPHILS % (MANUAL) 0 % (0-6); LYMPHOCYTES % (MANUAL) 33 % (13-45); NUCLEATED RED BLOOD CELLS 2 /100 WBC (0); TOTAL CELLS COUNTED 100
[2017-06-29 14:50] LABS: ANISOCYTOSIS 3+; POIKILOCYTOSIS 2+; TOXIC GRANULATION 1+
[2017-06-29 14:51] LABS: OVALOCYTES 2+; SCHISTOCYTES 1+
[2017-06-29 17:52] LABS: APPEARANCE,URINE SLIGHTLY-CLOUDY; BILIRUBIN,URINE NEGATIVE (NEGATIVE); GLUCOSE, URINE NEGATIVE (NEGATIVE); KETONES,URINE NEGATIVE (NEGATIVE); LEUKOCYTE ESTERASE,URINE NEGATIVE (NEGATIVE); NITRITE,URINE NEGATIVE (NEGATIVE); PROTEIN,URINE 30 mg/dL (NEGATIVE); URINE SPECIFIC GRAVITY 1.014; UROBILINOGEN,URINE NEGATIVE mg/dL (<2.0)
[2017-06-29] MEDS ORDERED: TRAMADOL HCL 50 MG TABLET PO PRN (20:48)
--- NOTE | 2017-06-29 21:41 | EKG REPORT ---
SEVERITY:- ABNORMAL ECG - VENTRICULAR-PACED RHYTHM : Confirmed by: Jose Raul Lorenzo 29-Jun-2017 21:41:17
[2017-06-29] MEDS ORDERED: ISOSORBIDE MONONITRATE 60 MG TAB.ER.24H PO SCH (22:00)
[2017-06-29] MEDS ORDERED: ATORVASTATIN CALCIUM 10 MG TABLET PO SCH (22:00)
[2017-06-29] MEDS: DABIGATRAN ETEXILATE 75 MG CAPSULE PO SCH (22:37)
[2017-06-30 06:00] LABS: HEMATOCRIT 25.6 % (36.0-47.0); HEMOGLOBIN 9.2 g/dL (12.0-15.5); MEAN CORPUSCULAR HEMOGLOBIN 35.3 pg (27.0-33.4); MEAN CORPUSCULAR VOLUME 98 fl (80-97); RED BLOOD COUNT 2.61 10^6/uL (3.72-5.28); RED CELL DISTRIBUTION WIDTH 24.6 % (11.5-14.0); WHITE BLOOD COUNT 4.8 10^3/uL (4.0-10.5)
[2017-06-30 06:02] LABS: ANION GAP 11 (5-19); BLOOD UREA NITROGEN 20 mg/dL (7-20); CALCIUM 7.7 mg/dL (8.4-10.2); CARBON DIOXIDE 26 mmol/L (22-30); CHLORIDE 98 mmol/L (98-107); CREATININE RESULT 1.01 mg/dL (0.52-1.25); GLUCOSE 89 mg/dL (75-110); POTASSIUM 4.2 mmol/L (3.6-5.0); SODIUM 134.6 mmol/L (137-145)
--- NOTE | 2017-06-30 06:38 | CONSULTATION REPORT E ---
Consultation Report NAME: SUNIL VALDES : 1930 AGE: 86Y DATE: TO: DIOGO BLANCO M.D. FROM: Kendra METZ, Requesting Physician Initially, it was supposed to be a consult and transfer summary, but there were no beds at [facility], hence, patient kept in the ER and consultation done. REASON FOR CONSULTATION: Shortness of breath with minimal exertion with chest pressure. HISTORY OF PRESENT ILLNESS: Patient is an 84-year-old female who recently was admitted to the hospital for a urinary tract infection and was transferred to a rehab facility. In the rehab facility since the day she reached there, she said she has been having progressively increasing shortness of breath with PND, orthopnea, and also chest pressure and seems very weak and could not walk. In the rehab facility, they said it was due to constipation, but the patient did not believe that and since the symptoms became more, she came to the emergency room and wanted to be transferred to [facility] where she has had most of her cardiac workup done. She denies any palpitations or syncope. There is no bleeding on Pradaxa. She denies any leg edema. There is no syncope. She does have PND and orthopnea. PAST MEDICAL HISTORY: Positive for: 1. History of hypertension, which is well controlled. 2. She has a history of coronary artery disease. 3. History of old myocardial infarction. 4. History of stent placement. 5. History of coronary artery bypass graft surgery. 6. No history of diabetes mellitus. 7. No history of thyroid disease. 8. History of GI bleed recently. 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 9. She has a history of anemia. 10. She has a past history of thrombocytopenia. The platelets now are 122 which is much improved. 11. She has a history of atrial fibrillation and has had a biventricular pacemaker for [employer]. She is on Pradaxa 75 mg p.o. q.12 hours for chronic anticoagulation. 12. She has a past history of congestive heart failure. 13. She has a history of cardiomyopathy with an LV ejection fraction in 09/2016 of 50%. She has anginal symptoms now. 14. Patient recently fractured her left wrist and is in a soft cast. 15. She also has a history of hyperlipidemia. 16. There is no TIA or CVA. There are no seizures, headaches, or migraines. 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 FAMILY HISTORY: Negative for coronary artery disease and hypertension. ALLERGIES: She is allergic to ASPIRIN, PENICILLIN, PROPOXYPHENE, DARVOCET-N, AND SULFA DRUGS. SOCIAL HISTORY: The patient does not smoke. There is no history of EtOH abuse. CODE STATUS: The patient is a FULL CODE. Her daughter is her surrogate healthcare decision maker. MEDICATIONS: Her medications include: 1. Atorvastatin 10 mg p.o. nightly. 2. She is on cyanocobalamin 1000 mcg p.o. daily. 3. She is on Pradaxa 75 mg p.o. q.12 hours. 4. Lasix 40 mg p.o. daily. 5. She is on isosorbide mononitrate. She was on 30, this has been increased to 60 mg p.o. nightly. 6. She is on metoprolol succinate, that is Toprol XL 50 mg p.o. daily. 7. She is on Ultram 50 mg p.o. q.8 hours p.r.n. for arthritic pain. REVIEW OF SYSTEMS: CONSTITUTIONAL: Denies any fevers, chills, or rigors. Complains of generalized fatigue and weakness. HEAD: Denies headaches or head injury. No dizziness. EYES: No history of amblyopia or diplopia. No history of amaurosis fugax. EARS: No history of hearing loss. No history of tinnitus. No history of recurrent ear infections. NOSE: No history of deviated nasal septum. No history of nasal polyps. Does have nasal allergies but no hay fever. MOUTH: No history of altered taste sensation. No history of bleeding from the gums. No ulcers in the mouth. THROAT: No history of odynophagia or dysphagia. No history of recurrent sore throats. SKIN: No history of pruritus. No history of yellowish discoloration of the skin. No history of psoriasis. No history of skin cancer. NECK: No painful or painless swelling of the neck. No goiter. LUNGS: No history of asthma or COPD. No history of sleep apnea. No history of cough or sputum production. No wheezing. No history of pulmonary embolism. No history of hemoptysis. No history of pleuritic chest pain. CARDIAC: History of hypertension present. History of coronary artery disease. Recent symptoms suggestive of increasing anginal symptoms and shortness of breath, probably secondary to deterioration of the LV function. She has a history of atrial fibrillation and a history of permanent pacemaker placement, biventricular, for [employer]IT[employer]. Recent symptoms of PND, orthopnea, and there is no leg edema. There is no syncope. MUSCULOSKELETAL: History of arthritis present but no collagen vascular disease. GASTROINTESTINAL: No history of jaundice. No history of hepatitis. No history of cirrhosis. No history of fatty food intolerance. She does have a recent history of GI bleed, has ilium of hepatic flexure which was cauterized. She does have diverticulosis. No further GI bleed. ENDOCRINE: No history of diabetes mellitus. No history of thyroid disease. No history of polydipsia or polyuria. No history of heat or cold intolerance. RENAL: The patient has chronic kidney disease stage 3. No symptoms of UTI. No history of hematuria, pyuria, or dysuria. CENTRAL NERVOUS SYSTEM: No history of TIA or CVA. No history of headaches, migraines, or seizures. No gait imbalance. No history of sleep apnea. PSYCHIATRIC: No history of anxiety or depression. VASCULAR: No history of calf or buttock claudication. No history of DVT. HEMATOLOGICAL: History of recent GI bleed and anemia. Past history of thrombocytopenia; the platelets have come up to 122. She did receive 4 units of packed red blood cells transfusion in the admission prior to the previous one. PHYSICAL EXAMINATION: VITAL SIGNS: Patient is afebrile with a temperature of 98 degrees Fahrenheit, pulse of 77 beats per minute, blood pressure 118/73, O2 sats are 95% on room air, respiratory rate is 21 per minute. HEAD: Atraumatic, normocephalic. EYES: Pupils are equal, round, regular, reactive to light and accommodation. Extraocular movements normal. There is no conjunctival pallor. There is no scleral icterus. EARS: Tympanic membranes are intact. External auditory canals are clear. There are no lesions on the pinna. NOSE: There is no deviated nasal septum. There is no inflammation of the nasal mucous membranes. MOUTH: Mucous membranes of the mouth are moist. Tongue is moist. There are no ulcers. There is no bleeding from the gums. THROAT: There is no redness of the oropharynx. There is no exudate. SKIN: There are no skin rashes. There is no petechia or ecchymosis. There are no skin lesions. NECK: Supple. There is no JVD. Carotids are equal. There is no bruit. There is no goiter. LUNGS: Clear to auscultation and percussion. There is no chest wall tenderness. HEART: S1 and S2 are heard. S1 has a variable intensity. There is no S3 gallop. There is no S4 gallop. There is a systolic murmur in the left sternal border in the apex. There is no rub. ABDOMEN: Soft, nontender. There is no hepatosplenomegaly. Bowel sounds are well heard. There are no tender areas or masses. EXTREMITIES: Femorals are diminished. There are no femoral bruits. Leg pulses are diminished. There is no pedal edema. There is no DVT or cellulitis. There is no calf tenderness. There is no cyanosis or clubbing. CENTRAL NERVOUS SYSTEM: The patient is conscious, awake, alert, oriented x3 with no focal deficit. PSYCHIATRIC: The patient's judgment and insight are intact. Her affect is normal. DIAGNOSTIC DATA: The patient's chest x-ray shows no failure or dense cardiomegaly. The patient's EKG shows ventricular paced rhythm, underlying atrial fibrillation. The patient's white count is 4600; hemoglobin is 10; hematocrit is 28.9; and platelet count is 122,000. The patient's NT-proBNP is 3140. Troponin I is less than 0.12. The patient's sodium is 134, potassium 4.0, chloride is 94, CO2 is 29. The patient's BUN is 24, creatinine is 1.25, GFR is reduced at *------* which is chronic kidney disease stage 3, *------* is 8.6, glucose is 117. IMPRESSION: 1. Chest pressure with even mild exertion, probable increasing anginal symptoms. 2. Shortness of breath with exertion, most likely secondary to deterioration of LV function, subclinical heart failure. 3. Atrial flutter/fibrillation. 4. History of GI bleed in the recent past. 5. History of UTI last admission. 6. Anemia. 7. Coronary artery disease. Patient with increasing chest pressure on exertion, most likely increasing anginal symptoms. 8. Old AR. 9. History of stent. 10. History of coronary artery bypass graft surgery. 11. Hypertension. 12. Hyperlipidemia. 13. Biventricular permanent pacemaker placement for cardiac resynchronization therapy. 14. Cardiomyopathy with LV ejection fraction of 50% in 09/2016. 15. Recent left wrist fracture. RECOMMENDATIONS: Continue her current medications. Note that I have increased the patient's isosorbide to 60 mg p.o. daily. Awaiting a bed from [place], most likely it will be on 06/30/2017 afternoon. Will recheck the patient in the morning. Note that the patient was seen at 1:00 p.m. More than 50% of time spent on direct patient care, discussion with the patient's family, medications reviewed and adjusted. I discussed the case with [facility] who accepted the patient but are waiting for a bed. Will watch the patient in the emergency room. Note decision making is of highly complex nature in view of the patient's symptoms of increasing chest pressure even with mild exertion. Hopefully the patient will have TE guided checking of her cardiac resynchronization therapy to see if it is working well and depending on the patient's kidney function at that time where patient will most likely have a stress test or a cardiac catheterization. Will leave that to [facility] Cardiology. DICTATING PHYSICIAN: DIOGO BLANCO M.D. [id number] PHY#: [id number] ID: [id number] JOB#: [id number] ACCT: [id number] cc:DIOGO BLANCO M.D. >
--- NOTE | 2017-06-30 08:57 | ER Document Report ---
ED Medical Screen (RME) - General Chief Complaint: Chest Pressure Stated Complaint: SHORTNESS OF BREATH Time Seen by Provider: 06/29/17 13:24 TRAVEL OUTSIDE OF THE [place] IN LAST 30 DAYS: No - Related Data Allergies/Adverse Reactions: aspirin Allergy (Verified 06/19/17 18:58) Penicillins Allergy (Verified 06/19/17 18:58) propoxyphene napsylate [From Darvocet-N 100] Allergy (Verified 06/19/17 18:58) Sulfa (Sulfonamide Antibiotics) Allergy (Verified 06/19/17 18:58) Home Medications: Current Home Medications Cyanocobalamin (Vitamin B-12) [Vitamin B-12 1000 mcg Tablet] 1,000 mg PO DAILY 06/29/17 [History] Dabigatran Etexilate Mesylate [Pradaxa 75 mg Capsule] 75 mg PO Q12 06/29/17 [ History] Furosemide [Lasix 40 mg Tablet] 40 mg PO DAILY 06/29/17 [History] Isosorbide Mononitrate [Isosorbide Mononitrate ER] 30 mg PO DAILY 06/29/17 [ History] Metoprolol Succinate [Toprol Xl 50 mg Tab.sr] 50 mg PO DAILY 06/29/17 [History] Pravastatin Sodium [Pravachol] 40 mg PO DAILY 06/29/17 [History] Tramadol HCl [Ultram 50 mg Tablet] 50 mg PO DAILYP PRN 06/29/17 [History] Past Medical History - Social History Chew tobacco use (# tins/day): No Frequency of alcohol use: None Drug Abuse: None - Past Medical History Cardiac Medical History: Reports: Hx Congestive Heart Failure, Hx Heart Attack, Hx Hypercholesterolemia, Hx Hypertension Pulmonary Medical History: Denies: Hx Asthma Neurological Medical History: Denies: Hx Cerebrovascular Accident, Hx Seizures Renal/ Medical History: Denies: Hx Peritoneal Dialysis GI Medical History: Denies: Hx Hepatitis, Hx Hiatal Hernia, Hx Ulcer Musculoskeltal Medical History: Reports Hx Arthritis Psychiatric Medical History: Denies: Hx Depression Infectious Medical History: Denies: Hx Hepatitis Past Surgical History: Reports: Hx Cardiac Catheterization - stents, Hx Cardiac Surgery - open heart, Hx Cholecystectomy, Hx Coronary Stent, Hx Hysterectomy, Hx Open Heart Surgery - 1998. Denies: Hx Mastectomy - lumpectomy, Hx Pacemaker - Immunizations Hx Diphtheria, Pertussis, Tetanus Vaccination: Yes History of Influenza Vaccine for 04/2017 - 09/2017 Season: No Physical Exam - Vital signs Vitals: Resp 18 06/29/17 13:20 Course - Re-evaluation Re-evalutation: 06/30/17 08:56 Rounded in AM. No acute needs per RN. VSS. Awaiting tx to [facility]. 06/30/17 08:57 Second troponin negative. Stable. - Vital Signs Vital signs: Temp Pulse Resp BP Pulse Ox 98.4 F 77 23 H 110/50 L 93 06/30/17 02:01 06/29/17 13:30 06/30/17 06:01 06/30/17 06:00 06/30/17 06:01 - Laboratory Result Diagrams: 06/30/17 05:35 06/30/17 05:35 Laboratory results interpreted by me: 06/29/17 06/29/17 06/29/17 13:40 13:40 13:40 RBC 2.92 L Hgb 10.0 L Hct 28.9 L MCV 99 H MCH 34.1 H RDW 24.8 H Plt Count 122 L Band Neutrophils % 1 L Sodium 134.1 L Chloride 94 L BUN 24 H Est GFR ( Amer) 49 L Est GFR (Non-Af Amer) 41 L Glucose 117 H Calcium NT-Pro-B Natriuret Pep 3140 H Urine Protein 06/29/17 06/30/17 06/30/17 17:24 05:35 05:35 RBC 2.61 L Hgb 9.2 L Hct 25.6 L MCV 98 H MCH 35.3 H RDW 24.6 H Plt Count 88 L Band Neutrophils % Sodium 134.6 L Chloride BUN Est GFR ( Amer) Est GFR (Non-Af Amer) 52 L Glucose Calcium 7.7 L NT-Pro-B Natriuret Pep Urine Protein 30 H Doctor's Discharge - Discharge Clinical Impression: History of CHF (congestive heart failure) Chest pain, unspecified Qualifiers: Chest pain type: unspecified Qualified Code(s): R07.9 - Chest pain, unspecified Condition: Fair Disposition: [facility] Referrals: PATRICIA MAJANO MD [Primary Care Provider] - Follow up as needed
[2017-06-30] MEDS: DABIGATRAN ETEXILATE 75 MG CAPSULE PO SCH (09:57)
[2017-06-30] MEDS ORDERED: ISOSORBIDE MONONITRATE 30 MG TAB.ER.24H PO SCH (10:00)
[2017-06-30] MEDS ORDERED: CYANOCOBALAMIN (VITAMIN B-12) 1,000 MCG TABLET PO SCH (10:00)
[2017-06-30] MEDS ORDERED: FUROSEMIDE 40 MG TABLET PO SCH (10:00)
[2017-06-30] MEDS ORDERED: (PENDING PHARMACY ID) (Pravastatin Sodium [Pravachol] 40 MG) PO SCH (10:00)
[2017-06-30] MEDS ORDERED: METOPROLOL SUCCINATE 50 MG TAB.SR.24H PO SCH (10:00)
--- NOTE | 2017-06-30 12:59 | TRANSFER SUMMARY E ---
Transfer Summary NAME: SUNIL VALDES : 1930 AGE: 86Y ADMITTED: 06/29/2017 TRANSFERRED: 06/30/2017 DISPOSITION: Patient being transferred to [facility]. FINAL DIAGNOSES: 1. Increasing chest pressure with exertion, suggestive of exertional angina, on the increase (unstable angina). 2. Shortness of breath with exertion, most likely subclinical left heart failure. 3. Atrial flutter/fibrillation. 4. History of gastrointestinal bleed in the recent past. 5. History of urinary tract infection last admission. 6. Anemia. 7. Coronary artery disease. Patient with increasing chest pressure on exertion, most likely increasing anginal symptoms. 8. Old myocardial infarction. 9. History of stent. 10. History of coronary artery bypass graft surgery. 11. Hypertension. 12. Hyperlipidemia. 13. Biventricular permanent pacemaker placement for cardiac resynchronization therapy. 14. Cardiomyopathy with a left ventricular ejection fraction of 50% in September of 2016. 15. Recent left wrist fracture. Note that in the ER, the patient's cardiac enzymes have been negative. MEDICATIONS ON TRANSFER: 1. Atorvastatin 10 mg at bedtime. 2. Xanax. 3. Vitamin B12 1000 mcg p.o. daily. 4. Pradaxa 75 mg p.o. q.12 hours. 5. Lasix 40 mg p.o. daily. 6. Isosorbide mononitrate 60 mg p.o. at bedtime. 7. Metoprolol succinate (Toprol XL) 50 mg p.o. daily. 8. Tramadol 50 mg p.o. q.8 hours p.r.n. COURSE IN THE EMERGENCY ROOM: The patient at rest has no chest pain or discomfort, and there is no shortness of breath. She does have orthopnea, but no PND or leg edema. She has no TIA or CVA symptoms. There is no bleeding on Pradaxa. The patient still, with minimal exertion, has chest pressure and continues to have shortness of breath. This is on the increase. PHYSICAL EXAMINATION: VITAL SIGNS: Today, on 06/30/2017, the patient is afebrile. Pulse is 75 beats per minute. Blood pressure is 131/73, respirations 18 per minute. O2 sats are 96% on room air. HEENT: Head is atraumatic, normocephalic. Eyes: Pupils are equal, round, regular, reactive to light and accommodation. Extraocular movements are normal. There is no conjunctival pallor. There is no scleral icterus. ENT is negative. NECK: Supple. There is no JVD. Carotids are equal. There is no bruit. There is no goiter. There is no JVD. There is no lymphadenopathy. CHEST: Lungs are clear to auscultation and percussion. There is no chest wall tenderness. HEART: S1, S2 are heard. S1 is of variable intensity. There is no S3 gallop. There is no S4 gallop. There is a systolic murmur at the left sternal border, at the apex. There is no rub. ABDOMEN: Soft, obese, nontender. There is no hepatosplenomegaly. Bowel sounds are well-heard. EXTREMITIES: Femorals are diminished. There are no femoral bruits. Leg pulses are diminished. There is no pedal edema. There is no DVT or cellulitis. There is no calf tenderness. CENTRAL NERVOUS SYSTEM: The patient is conscious, awake, alert, oriented x3. There are no focal deficits. PSYCHIATRIC: The patient's judgment and insight are intact. Her affect is normal. LABORATORY DATA: Note that the patient's chest x-ray showed cardiomegaly without any heart failure. The patient's EKG done yesterday showed underlying atrial fibrillation with ventricular-paced rhythm. The patient's white count today is 4800, hemoglobin 10.2, hematocrit is 25.6 and the platelet count is 88,000. The patient's sodium is 134.6, potassium 4.2, chloride 98, CO2 is 26. The patient's BUN is 20, creatinine is 1.01. GFR is improved to 52, with chronic kidney disease stage IIIa. Glucose is 89, calcium is 7.7. Her first set of troponin I was less than 0.12; second set was 0.013. Her NT-ProBNP was 3143. DISPOSITION: The patient will be transferred to [facility] under Dr. Zee, with further treatment plans as per [facility]. Possibly would include confirming the biventricular pacer is in optimal resynchronization therapy, and stress test versus repeat cardiac catheterization. This has been discussed with the patient. placement and also bypass graft surgery and biventricular pacemaker in [facility]. The patient will follow up with me after her visit in [facility]. DICTATING PHYSICIAN: DIOGO BLANCO M.D. [id number] PH#: [id number] ID: [id number] JOB#: [id number] ACCT: [id number] cc:DIOGO BLANCO M.D. >
[2017-06-30 13:22] VITALS: BP 113/43
== END 2017-06-30 13:33 | disposition short-term general hospital (02) ==
LOC: ER 13:18
DX: R07.9 Chest pain, unspecified (principal); R06.02 Shortness of breath; I25.10 Atherosclerotic heart disease of native coronary artery without angina pectoris; I11.0 Hypertensive heart disease with heart failure; D64.9 Anemia, unspecified; I50.9 Heart failure, unspecified; E78.00 Pure hypercholesterolemia, unspecified; Z88.6 Allergy status to analgesic agent; Z88.0 Allergy status to penicillin; Z88.2 Allergy status to sulfonamides; Z87.891 Personal history of nicotine dependence; I25.2 Old myocardial infarction; Z95.810 Presence of automatic (implantable) cardiac defibrillator
CPT/HCPCS: 93005; 99285; 36415; 87086; 85025; 85027; 80048; 81001; 84484; 83880; 71010; 93010; A9270 ×8; J3490